=== PATIENT | female | born 1975 | race Caucasian/White ===

== ENCOUNTER 2023-01-22 17:12 | Emergency (ER) | payer MEDICARE, MEDICAID, SELFPAY ==
--- NOTE | ~2023-01-22 | US_ITS ---
EXAMINATION: ULTRASOUND FOLLOW-UP OVARIAN DOPPLER CLINICAL INDICATION: Right lower quadrant pain COMPARISON: None TECHNIQUE: Sonographic evaluation of the pelvis was performed transabdominally and transvaginally.: Doppler and spectral analysis was utilized. FINDINGS: Per technologist report, performance of the exam is limited due to body habitus and bowel gas. Transvaginal exam was terminated prior to completion as per patient request. The uterus measures 7.9 cm in length and 4.6 x 5.9 cm in AP and transverse dimensions. Endometrial stripe measures 1.3 cm in thickness. Questionable few small endometrial cysts versus polyps, not adequately evaluated. The right ovary is not visualized on transabdominal or transvaginal imaging. The left ovary is seen on transabdominal imaging, measuring 3.6 x 2.4 x 2.2 cm. Cystic structure in the left ovary measures up to 1.6 cm, which may represent a follicle. Doppler evaluation demonstrates normal-appearing waveforms in the left ovary. No free fluid is seen. US/US pelvic and transvaginal IMPRESSION: 1. Limited examination as noted above. Right ovary is not visualized on transabdominal or transvaginal imaging. 2. No findings to suggest left ovarian torsion. 3. Questionable few small endometrial cysts versus polyps, not adequately evaluated.
--- NOTE | ~2023-01-22 | CT_ITS ---
EXAMINATION: CT ABDOMEN AND PELVIS WITHOUT CONTRAST CLINICAL INFORMATION: Right-sided abdominal pain. COMPARISON: None available. TECHNIQUE: Multidetector volumetric imaging was performed from the superior aspect of the liver through the pubic symphysis. Sagittal and coronal reformatted images were obtained on the technologist's workstation. This CT examination was performed using dose optimization techniques as appropriate, variously including the following: *Automated exposure control *Adjustment of mA and/or kV according to patient size (this includes techniques or standardized protocols for targeted exams where dose is matched to indication/reason for exam; i.e. extremities or head) *Use of iterative reconstruction technique DLP: 869 mGy-cm FINDINGS: The lack of intravenous contrast limits evaluation of the solid visceral organs including the liver, spleen, pancreas, and kidneys. LUNG BASES: No focal consolidation or pleural effusion. LIVER, GALLBLADDER, AND BILIARY TREE: The liver is normal in size, shape, and attenuation. No focal hepatic lesion or biliary ductal dilatation is present. The gallbladder is unremarkable with no evidence of radiopaque gallstones, gallbladder wall thickening, or obvious pericholecystic inflammatory changes. PANCREAS: Unremarkable. SPLEEN: Unremarkable. ADRENAL GLANDS: Unremarkable. KIDNEYS AND URETERS: The kidneys are normal in size, shape, and attenuation. No hydronephrosis, hydroureter, or calculi seen. No perinephric stranding. BLADDER: Unremarkable. GASTROINTESTINAL TRACT: The stomach and the small bowel are nondilated. The appendix is mildly dilated measuring 0.8 cm in diameter but with no significant associated inflammatory changes. Mild diverticulosis. No pericolonic inflammatory changes. No evidence of bowel obstruction. ABDOMINAL WALL: No significant hernia is appreciated. LYMPH NODES: Nonspecific prominent right-sided pelvic sidewall lymph node measuring 1 cm in short axis (3:76) but with a benign reniform morphology, possibly reactive. This could be safely follow-up in future examinations. VASCULAR: Abdominal aorta is normal in caliber. PELVIC VISCERA: No significant abnormality in this limited noncontrast examination. OSSEOUS STRUCTURES: Nonaggressive appearing sclerotic focus in the L5 vertebral body, favored to represent a bone island. Mild degenerative changes of the spine. CT/CT abdomen pelvis wo IV con IMPRESSION: 1. The appendix is mildly dilated but with no significant associated inflammatory changes, findings could indicate the presence of very early mild appendicitis in the appropriate clinical context. 2. Mild diverticulosis but no evidence of acute diverticulitis.
--- NOTE | ~2023-01-22 | US_ITS ---
EXAMINATION: ULTRASOUND FOLLOW-UP OVARIAN DOPPLER CLINICAL INDICATION: Right lower quadrant pain COMPARISON: None TECHNIQUE: Sonographic evaluation of the pelvis was performed transabdominally and transvaginally.: Doppler and spectral analysis was utilized. FINDINGS: Per technologist report, performance of the exam is limited due to body habitus and bowel gas. Transvaginal exam was terminated prior to completion as per patient request. The uterus measures 7.9 cm in length and 4.6 x 5.9 cm in AP and transverse dimensions. Endometrial stripe measures 1.3 cm in thickness. Questionable few small endometrial cysts versus polyps, not adequately evaluated. The right ovary is not visualized on transabdominal or transvaginal imaging. The left ovary is seen on transabdominal imaging, measuring 3.6 x 2.4 x 2.2 cm. Cystic structure in the left ovary measures up to 1.6 cm, which may represent a follicle. Doppler evaluation demonstrates normal-appearing waveforms in the left ovary. No free fluid is seen. US/US pelvic ovarian doppler IMPRESSION: 1. Limited examination as noted above. Right ovary is not visualized on transabdominal or transvaginal imaging. 2. No findings to suggest left ovarian torsion. 3. Questionable few small endometrial cysts versus polyps, not adequately evaluated.
[2023-01-22 17:18] VITALS: BP 114/68; PULSE 87; RESP 20; TEMP 35.8; O2SAT 94; BMI 34.9
--- NOTE | 2023-01-22 17:19 | ED_ITS ---
HPI - Abdominal Pain General Chief Complaint: Abdominal Pain <SNEHA Henao Last Filed: 01/23/23 08:58> Stated Complaint: R side abdominal pain <SNEHA Henao Last Filed: 01/23/23 08:58> Time Seen by Provider: 01/22/23 17:43 <SNEHA Henao Last Filed: 01/23/23 08:58> Source: patient <SNEHA Nolasco Last Filed: 01/23/23 01:30> Mode of arrival: ambulatory <SNEHA Nolasco Last Filed: 01/23/23 01:30> Limitations: no limitations <SNEHA Nolasco Last Filed: 01/23/23 01:30> History of Present Illness HPI narrative: 47 year old female with PMH of multiple sclerosis and fibromyalgia presents to the ED with consistent, sharp, stabbing RLQ pain, anorexia now X1hour. Patient reports the pain does not radiate and is an 8/10. She has never experienced anything like this before. She last ate at 2 PM and had an japanese muffin. Normal bowel and bladder movements. She has not taken anything for the pain. Denies N/V/D, fever, chills, fatigue, malaise, urinary symptoms, saddle paresthesias, or lightheadedness. Patient denies any other medical concerns. <SNEHA Nolasco Last Filed: 01/23/23 01:30> Related Data Home Medications: Previous Rx's Medication Instructions Recorded cefuroxime axetil 250 mg tablet 250 mg PO BID 7 days #14 tabs 01/23/23 <SNEHA Henao Last Filed: 01/23/23 08:58> Allergies/Adverse Reactions: Allergies Allergy/AdvReac Type Severity Reaction Status Date / Time clonazepam Allergy Rash Verified 01/23/23 02:42 naproxen Allergy Palpitation Verified 01/23/23 02:42 s <SNEHA Henao Last Filed: 01/23/23 08:58> Review of Systems Review of Systems Constitutional : No Weight loss, No Fever, No Chills, No Fatigue, No Malaise Cardiovascular : No Chest Pain, No SOB, No Dyspnea on Exertion, No Orthopnea, No Edema, No Palpitations Respiratory : No Cough, No Sputum, No Wheezing Gastrointestinal : No Nausea, No Vomiting, No Diarrhea, No Constipation, + abdominal Pain, No Hematochezia, No Melena Genitourinary : No Dysuria, No Urinary Frequency, No Hematuria, Musculoskeletal : No joint pain, No Myalgias, No Joint Swelling Skin : No Skin Lesions, No rash Neuro : No Weakness, No Numbness, No Dizziness, No Headache Psych : No Anxiety/Panic, No Depression Heme/Lymph: No Bruising, No Bleeding,No Lymphadenopathy Endocrine : No Polyuria, No Polydipsia All other systems reviewed and are negative <SNEHA Nolasco - Last Filed: 01/23/23 01:30> [facility] Past Medical History Attestation statement: The following information was validated with the patient. <SNEHA Nolasco - Last Filed: 01/23/23 01:30> Source: old records reviewed and obtained from family <SNEHA Nolasco Last Filed: 01/23/23 01:30> Social History Social History: Social History Alcohol intake: never Smoked in Last 30 Days: Yes Use of substances other than those prescribed or required for medical reasons: Yes Substance Use Type: Marijuana Advance Directives: Yes Advance Directives Information Provided: No Advance Directives on File: No Patient : No <SNEHA Henao - Last Filed: 01/23/23 08:58> Physical Exam ED Vital Signs: Vital Signs - 24 hr 01/22/23 17:18 01/22/23 19:55 01/22/23 23:19 Temperature 96.5 F L 98.1 F 98.1 F Pulse Rate 87 77 70 Respiratory Rate 20 16 18 Blood Pressure 114/68 124/73 103/61 Pulse Oximetry 94 99 93 Oxygen Delivery Method Room Air Room Air Room Air 01/23/23 00:04 01/23/23 00:07 01/23/23 03:15 Temperature 98.0 F Pulse Rate 75 70 62 Respiratory Rate 18 17 16 Blood Pressure 110/62 101/66 127/71 Pulse Oximetry 94 93 95 Oxygen Delivery Method Room Air Room Air Room Air 01/23/23 05:38 01/23/23 05:49 Temperature 97.0 F Pulse Rate 71 Respiratory Rate 18 16 Blood Pressure 131/72 Pulse Oximetry 98 Oxygen Delivery Method Room Air BMI result Body Mass Index 34.9 <SNEHA Henao - Last Filed: 01/23/23 08:58> Vital Signs - 24 hr 01/22/23 17:18 01/22/23 19:55 01/22/23 23:19 Temperature 96.5 F L 98.1 F 98.1 F Pulse Rate 87 77 70 Respiratory Rate 20 16 18 Blood Pressure 114/68 124/73 103/61 Pulse Oximetry 94 99 93 Oxygen Delivery Method Room Air Room Air Room Air 01/23/23 00:04 01/23/23 00:07 01/23/23 03:15 Temperature 98.0 F Pulse Rate 75 70 62 Respiratory Rate 18 17 16 Blood Pressure 110/62 101/66 127/71 Pulse Oximetry 94 93 95 Oxygen Delivery Method Room Air Room Air Room Air 01/23/23 05:38 01/23/23 05:49 Temperature 97.0 F Pulse Rate 71 Respiratory Rate 18 16 Blood Pressure 131/72 Pulse Oximetry 98 Oxygen Delivery Method Room Air BMI result Body Mass Index 34.9 VSS <SNEHA Nolasco - Last Filed: 01/23/23 01:30> Vital Signs - 24 hr 01/22/23 17:18 01/22/23 19:55 01/22/23 23:19 Temperature 96.5 F L 98.1 F 98.1 F Pulse Rate 87 77 70 Respiratory Rate 20 16 18 Blood Pressure 114/68 124/73 103/61 Pulse Oximetry 94 99 93 Oxygen Delivery Method Room Air Room Air Room Air 01/23/23 00:04 01/23/23 00:07 01/23/23 03:15 Temperature 98.0 F Pulse Rate 75 70 62 Respiratory Rate 18 17 16 Blood Pressure 110/62 101/66 127/71 Pulse Oximetry 94 93 95 Oxygen Delivery Method Room Air Room Air Room Air 01/23/23 05:38 01/23/23 05:49 Temperature 97.0 F Pulse Rate 71 Respiratory Rate 18 16 Blood Pressure 131/72 Pulse Oximetry 98 Oxygen Delivery Method Room Air BMI result Body Mass Index 34.9 <Robert Godinez MD - Last Filed: 01/23/23 05:08> Appearance: Alert.? Oriented X3.? No acute distress.? Head: Normocephalic, atraumatic, no step-offs or deformities Eyes: Pupils equal, round and reactive to light.? Neck: Normal inspection.? Neck supple.? CVS: Normal heart rate and rhythm.? Pulses normal.? Respiratory: No respiratory distress.? Breath sounds normal.? Abdomen: Soft, no abdominal wall rigidity, NBSX4 quadrants, tender to palpation, rebound and guarding of epigrastic region, RUQ and RLQ, - Currie's sign, - Rovsing, + McBurney Skin: Skin warm and dry.? Normal skin color.? Normal skin turgor.? Extremities: No lower extremity edema.? No calf ttp. 5/5 strength to bilateral upper and lower extremities Back: No midline tenderness, no C-spine tenderness, full range of motion, + CVA tenderness on the right Neuro: Oriented X 3.? No motor deficit.? No sensory deficit. CN 2-12 intact <SNEHA Nolasco Last Filed: 01/23/23 01:30> Course Course Course Narrative: RME - 47 yo female presents to the ER for evaluation of 30 minutes of acute onset of 8/10 RLQ stabbing abdominal pain. No N/V/D, fever, or urinary symptoms. Plan: lab workup. may need CT scan abd/pelvis but will need to be with contrast. defer to main provider in the ER <SNEHA Henao Last Filed: 01/23/23 08:58> Reevaluation(s) Reevaluation #1: Patient was a very difficult stick multiple nurses tried to obtain access however unsuccessful. At this time CT of the abdomen pelvis without contrast will be obtained. Labs showing elevated white blood cell count 11.3, chemistry essentially unremarkable hCG negative. CT of the abdomen pelvis with the appendix mildly dilated without significant associated inflammatory changes, this could be an early appendicitis, pain did just start an hour prior to arrival, I did re-evaluate patient she continues to have exquisite tenderness to the right lower quadrant. There is concern for appendicitis on this patient. Will discuss this case with surgery. Patient aware. <SNEHA Nolasco Last Filed: 01/23/23 01:30> Time: 22:43 <SNEHA Nolasco Last Filed: 01/23/23 01:30> Reevaluation #2: Discussed this case with surgery who states low suspicion for appendicitis however patient to be kept overnight and evaluated by them in the morning. Patient is noted to have a UTI she was covered with Zosyn empirically which will also cover for UTI. Patient continues to have pain. Ultrasound was called in for ovarian Doppler study. <SNEHA Nolasco - Last Filed: 01/23/23 01:30> Time: 00:22 <SNEHA Nolasco - Last Filed: 01/23/23 01:30> Reevaluation #3: Sign out to Dr. Godinez. Pending US of pelvis w/ doppler and surgical consult in AM <SNEHA Nolasco - Last Filed: 01/23/23 01:30> Time: 01:24 <SNEHA Nolasco - Last Filed: 01/23/23 01:30> Additional Reevaluation(s): Start physician observation: Radiology reading for pelvic top ultrasound is as follows: US pelvic ovarian doppler IMPRESSION: 1. Limited examination as noted above. Right ovary is not visualized on transabdominal or transvaginal imaging. 2. No findings to suggest left ovarian torsion. 3. Questionable few small endometrial cysts versus polyps, not adequately evaluated. Dictated By:Thuan Cortez MD The patient was given a dose of Zofran for nausea with improvement but she states that her pain is coming back. On examination she does have right lower quadrant tenderness which is moderate. I did order morphine 4 mg IV. The patient will be kept in the emergency department until she is re-evaluated by the surgeon. <Robert Godinez MD - Last Filed: 01/23/23 05:08> Consultations Consultation #1: Dr. Foley came and evaluated the patient in the emergency department. Pain is improved. Clinically unlikely have acute appendicitis at this time. Recommendations are to be discharged with antibiotics for positive UA, follow-up as needed with surgery in the office. Patient has been given a dose of IV Rocephin this morning for positive urinalysis. She will be discharged home on oral Ceftin. She was given strict return precautions to come back to the ER if severe pain were to recur. Stable for discharge home. Patient agrees with plan all questions were answered. <SNEHA Henao - Last Filed: 01/23/23 08:58> Time: 08:57 <SNEHA Henao - Last Filed: 01/23/23 08:58> 05:01 <Robert Godinez MD - Last Filed: 01/23/23 05:08> Medical Decision Making Medical Decision Making MDM Narrative: 47 year old female presents with sharp, stabbing, constant RLQ abdominal pain for 1 hour. PE: Abdomen: Soft, no abdominal wall rigidity, NBSX4 quadrants, tender to palpation, rebound and guarding of epigrastic region, RUQ and RLQ, + McBurney Plan: CT abdomen and pelvis with contrast Ddx: Appendicitis, cholecystitis, urolithiasis, UTI, cystitis, pancreatitis. Less likely cholangitis, acute abdomen. Less likely torsion or ectopic <SNEHA Nolasco - Last Filed: 01/23/23 01:30> Differential Diagnosis Differential Diagnoses: The differential diagnosis associated with the presentation includes <SNEHA Nolasco - Last Filed: 01/23/23 01:30> Ddx: Appendicitis, cholecystitis, urolithiasis, UTI, cystitis, pancreatitis. Less likely cholangitis, acute abdomen. Less likely torsion or ectopic <SNEHA Nolasco - Last Filed: 01/23/23 01:30> Admission/Observation Consideration of admission/observation: Escalation of care including admission/observation considered <SNEHA Nolasco - Last Filed: 01/23/23 01:30> possible surgical admit <SNEHA Nolasco - Last Filed: 01/23/23 01:30> Consult Healthcare Provider Management of the patient was discussed with: Hospitalist and Measurement And Sensing Technician (surgery ) <SNEHA Nolasco - Last Filed: 01/23/23 01:30> Lab Data [facility] Lab Attestation statement: I reviewed the patient's lab results. <SNEHA Nolasco - Last Filed: 01/23/23 01:30> Result Diagrams: 01/22/23 17:39 01/22/23 17:39 <SNEAH Henao - Last Filed: 05/06/23 08:58> Labs: Lab Results 01/22/23 01/22/23 01/22/23 Range/Units 17:39 17:39 23:27 WBC 11.3 H (4.8-10.8) X10*3/uL RBC 4.97 (4.20-5.50) X10*6/uL Hgb 13.4 (12.0-16.0) g/dl Hct 42.1 (37.0-47.0) % MCV 84.7 (80.0-98.0) fL MCH 27.0 (27.0-33.0) pg MCHC 31.8 (31.0-35.0) g/dl RDW 15.0 (11.0-16.0) % Plt Count 176 (160-400) X10*3/uL MPV 9.6 (9.4-12.3) fL Immature Gran % (Auto) 0.4 (0.0-0.4) % Neut % (Auto) 64.0 (45-73) % Lymph % (Auto) 26.3 (20-40) % [place] % (Auto) 7.0 (2-11) % Eos % (Auto) 1.9 (0-4) % Baso % (Auto) 0.4 (0-2) % Lymph # (Auto) 3.0 (1.2-4.9) X10*3/uL [place] # (Auto) 0.8 (0.1-1.2) X10*3/uL Eos # (Auto) 0.2 (0.0-0.4) X10*3/uL Baso # (Auto) 0.1 (0.0-0.2) X10*3/uL Abs Immat Gran (auto) 0.05 H (0.00-0.03) X10*3/uL Absolute Neuts (auto) 7.2 (2.0-8.3) x10*3/uL Absolute Nucleated RBC 0.000 (0.0-0.012) X10*3/uL Nucleated RBC % (auto) 0.0 (0.0-0.2) /100WBC Sodium 141 (135-145) mmol/L Potassium 3.9 (3.3-5.1) mmol/L Chloride 113 H (96-108) mmol/L Carbon Dioxide 22 (22-29) mmol/L Anion Gap 10 L (12-20) BUN 13 (9-16) mg/dL Creatinine 0.89 (0.5-1.4) mg/dL Estim Creat Clear Calc 94.4 Estimated GFR > 60 Random Glucose 157 H (60-115) mg/dL Lactic Acid 0.5 (0.5-2.0) mmol/L Calcium 9.4 (8.4-10.2) mg/dL Magnesium 2.2 (1.6-2.6) mg/dL Total Bilirubin 0.2 (0.0-1.0) mg/dL Direct Bilirubin 0.1 (0.0-0.5) mg/dL AST 14 (5-31) U/L ALT 16 (0-31) U/L Alkaline Phosphatase 80 (39-117) U/L Total Protein 7.2 (6.5-8.0) g/dL Albumin 4.3 (3.5-5.0) g/dL Lipase 31 (8-78) U/L Beta HCG, Quant < 2 mIU/mL Urine Color Urine Appearance Urine pH (5.0-9.0) Ur Specific Holden (1.005-1.025) Urine Protein (Neg-Trace) mg/dL Urine Glucose (UA) (Negative) mg/dL Urine Ketones (Negative) mg/dL Urine Blood (Negative) Urine Nitrite (Negative) Ur Leukocyte Esterase (Negative) Urine RBC (0-2) /HPF Urine WBC (0-5) /HPF Ur Squamous Epith Cells (0-2) /HPF Urine Bacteria (None Seen) Hyaline Casts (0-2) /LPF 01/22/23 01/23/23 Range/Units 23:27 06:48 WBC 10.4 (4.8-10.8) X10*3/uL RBC 5.03 (4.20-5.50) X10*6/uL Hgb 13.5 (12.0-16.0) g/dl Hct 43.0 (37.0-47.0) % MCV 85.5 (80.0-98.0) fL MCH 26.8 L (27.0-33.0) pg MCHC 31.4 (31.0-35.0) g/dl RDW 15.2 (11.0-16.0) % Plt Count 160 (160-400) X10*3/uL MPV 9.3 L (9.4-12.3) fL Immature Gran % (Auto) 0.5 H (0.0-0.4) % Neut % (Auto) 61.3 (45-73) % Lymph % (Auto) 26.2 (20-40) % [place] % (Auto) 9.5 (2-11) % Eos % (Auto) 2.1 (0-4) % Baso % (Auto) 0.4 (0-2) % Lymph # (Auto) 2.7 (1.2-4.9) X10*3/uL [place] # (Auto) 1.0 (0.1-1.2) X10*3/uL Eos # (Auto) 0.2 (0.0-0.4) X10*3/uL Baso # (Auto) 0.0 (0.0-0.2) X10*3/uL Abs Immat Gran (auto) 0.05 H (0.00-0.03) X10*3/uL Absolute Neuts (auto) 6.4 (2.0-8.3) x10*3/uL Absolute Nucleated RBC 0.000 (0.0-0.012) X10*3/uL Nucleated RBC % (auto) 0.0 (0.0-0.2) /100WBC Sodium (135-145) mmol/L Potassium (3.3-5.1) mmol/L Chloride (96-108) mmol/L Carbon Dioxide (22-29) mmol/L Anion Gap (12-20) BUN (9-16) mg/dL Creatinine (0.5-1.4) mg/dL Estim Creat Clear Calc Estimated GFR Random Glucose (60-115) mg/dL Lactic Acid (0.5-2.0) mmol/L Calcium (8.4-10.2) mg/dL Magnesium (1.6-2.6) mg/dL Total Bilirubin (0.0-1.0) mg/dL Direct Bilirubin (0.0-0.5) mg/dL AST (5-31) U/L ALT (0-31) U/L Alkaline Phosphatase (39-117) U/L Total Protein (6.5-8.0) g/dL Albumin (3.5-5.0) g/dL Lipase (8-78) U/L Beta HCG, Quant mIU/mL Urine Color Yellow Urine Appearance Clear Urine pH 5.5 (5.0-9.0) Ur Specific Holden 1.010 (1.005-1.025) Urine Protein Negative (Neg-Trace) mg/dL Urine Glucose (UA) Negative (Negative) mg/dL Urine Ketones Negative (Negative) mg/dL Urine Blood Negative (Negative) Urine Nitrite Positive H (Negative) Ur Leukocyte Esterase Small (1+) H (Negative) Urine RBC 0-2 (0-2) /HPF Urine WBC 11-20 H (0-5) /HPF Ur Squamous Epith Cells 3-5 (0-2) /HPF Urine Bacteria 4+ (None Seen) Hyaline Casts 3-5 (0-2) /LPF <SNEHA Henao - Last Filed: 01/23/23 08:58> Lab Results 01/22/23 01/22/23 01/22/23 Range/Units 17:39 17:39 23:27 WBC 11.3 H (4.8-10.8) X10*3/uL RBC 4.97 (4.20-5.50) X10*6/uL Hgb 13.4 (12.0-16.0) g/dl Hct 42.1 (37.0-47.0) % MCV 84.7 (80.0-98.0) fL MCH 27.0 (27.0-33.0) pg MCHC 31.8 (31.0-35.0) g/dl RDW 15.0 (11.0-16.0) % Plt Count 176 (160-400) X10*3/uL MPV 9.6 (9.4-12.3) fL Immature Gran % (Auto) 0.4 (0.0-0.4) % Neut % (Auto) 64.0 (45-73) % Lymph % (Auto) 26.3 (20-40) % [place]ug[place] % (Auto) 7.0 (2-11) % Eos % (Auto) 1.9 (0-4) % Baso % (Auto) 0.4 (0-2) % Lymph # (Auto) 3.0 (1.2-4.9) X10*3/uL [place] # (Auto) 0.8 (0.1-1.2) X10*3/uL Eos # (Auto) 0.2 (0.0-0.4) X10*3/uL Baso # (Auto) 0.1 (0.0-0.2) X10*3/uL Abs Immat Gran (auto) 0.05 H (0.00-0.03) X10*3/uL Absolute Neuts (auto) 7.2 (2.0-8.3) x10*3/uL Absolute Nucleated RBC 0.000 (0.0-0.012) X10*3/uL Nucleated RBC % (auto) 0.0 (0.0-0.2) /100WBC Sodium 141 (135-145) mmol/L Potassium 3.9 (3.3-5.1) mmol/L Chloride 113 H (96-108) mmol/L Carbon Dioxide 22 (22-29) mmol/L Anion Gap 10 L (12-20) BUN 13 (9-16) mg/dL Creatinine 0.89 (0.5-1.4) mg/dL Estim Creat Clear Calc 94.4 Estimated GFR > 60 Random Glucose 157 H (60-115) mg/dL Lactic Acid 0.5 (0.5-2.0) mmol/L Calcium 9.4 (8.4-10.2) mg/dL Magnesium 2.2 (1.6-2.6) mg/dL Total Bilirubin 0.2 (0.0-1.0) mg/dL Direct Bilirubin 0.1 (0.0-0.5) mg/dL AST 14 (5-31) U/L ALT 16 (0-31) U/L Alkaline Phosphatase 80 (39-117) U/L Total Protein 7.2 (6.5-8.0) g/dL Albumin 4.3 (3.5-5.0) g/dL Lipase 31 (8-78) U/L Beta HCG, Quant < 2 mIU/mL Urine Color Urine Appearance Urine pH (5.0-9.0) Ur Specific Holden (1.005-1.025) Urine Protein (Neg-Trace) mg/dL Urine Glucose (UA) (Negative) mg/dL Urine Ketones (Negative) mg/dL Urine Blood (Negative) Urine Nitrite (Negative) Ur Leukocyte Esterase (Negative) Urine RBC (0-2) /HPF Urine WBC (0-5) /HPF Ur Squamous Epith Cells (0-2) /HPF Urine Bacteria (None Seen) Hyaline Casts (0-2) /LPF 01/22/23 01/23/23 Range/Units 23:27 06:48 WBC 10.4 (4.8-10.8) X10*3/uL RBC 5.03 (4.20-5.50) X10*6/uL Hgb 13.5 (12.0-16.0) g/dl Hct 43.0 (37.0-47.0) % MCV 85.5 (80.0-98.0) fL MCH 26.8 L (27.0-33.0) pg MCHC 31.4 (31.0-35.0) g/dl RDW 15.2 (11.0-16.0) % Plt Count 160 (160-400) X10*3/uL MPV 9.3 L (9.4-12.3) fL Immature Gran % (Auto) 0.5 H (0.0-0.4) % Neut % (Auto) 61.3 (45-73) % Lymph % (Auto) 26.2 (20-40) % [place] % (Auto) 9.5 (2-11) % Eos % (Auto) 2.1 (0-4) % Baso % (Auto) 0.4 (0-2) % Lymph # (Auto) 2.7 (1.2-4.9) X10*3/uL [place] # (Auto) 1.0 (0.1-1.2) X10*3/uL Eos # (Auto) 0.2 (0.0-0.4) X10*3/uL Baso # (Auto) 0.0 (0.0-0.2) X10*3/uL Abs Immat Gran (auto) 0.05 H (0.00-0.03) X10*3/uL Absolute Neuts (auto) 6.4 (2.0-8.3) x10*3/uL Absolute Nucleated RBC 0.000 (0.0-0.012) X10*3/uL Nucleated RBC % (auto) 0.0 (0.0-0.2) /100WBC Sodium (135-145) mmol/L Potassium (3.3-5.1) mmol/L Chloride (96-108) mmol/L Carbon Dioxide (22-29) mmol/L Anion Gap (12-20) BUN (9-16) mg/dL Creatinine (0.5-1.4) mg/dL Estim Creat Clear Calc Estimated GFR Random Glucose (60-115) mg/dL Lactic Acid (0.5-2.0) mmol/L Calcium (8.4-10.2) mg/dL Magnesium (1.6-2.6) mg/dL Total Bilirubin (0.0-1.0) mg/dL Direct Bilirubin (0.0-0.5) mg/dL AST (5-31) U/L ALT (0-31) U/L Alkaline Phosphatase (39-117) U/L Total Protein (6.5-8.0) g/dL Albumin (3.5-5.0) g/dL Lipase (8-78) U/L Beta HCG, Quant mIU/mL Urine Color Yellow Urine Appearance Clear Urine pH 5.5 (5.0-9.0) Ur Specific Holden 1.010 (1.005-1.025) Urine Protein Negative (Neg-Trace) mg/dL Urine Glucose (UA) Negative (Negative) mg/dL Urine Ketones Negative (Negative) mg/dL Urine Blood Negative (Negative) Urine Nitrite Positive H (Negative) Ur Leukocyte Esterase Small (1+) H (Negative) Urine RBC 0-2 (0-2) /HPF Urine WBC 11-20 H (0-5) /HPF Ur Squamous Epith Cells 3-5 (0-2) /HPF Urine Bacteria 4+ (None Seen) Hyaline Casts 3-5 (0-2) /LPF <SNEHA Nolasco - Last Filed: 01/23/23 01:30> Lab Results 01/22/23 01/22/23 01/22/23 Range/Units 17:39 17:39 23:27 WBC 11.3 H (4.8-10.8) X10*3/uL RBC 4.97 (4.20-5.50) X10*6/uL Hgb 13.4 (12.0-16.0) g/dl Hct 42.1 (37.0-47.0) % MCV 84.7 (80.0-98.0) fL MCH 27.0 (27.0-33.0) pg MCHC 31.8 (31.0-35.0) g/dl RDW 15.0 (11.0-16.0) % Plt Count 176 (160-400) X10*3/uL MPV 9.6 (9.4-12.3) fL Immature Gran % (Auto) 0.4 (0.0-0.4) % Neut % (Auto) 64.0 (45-73) % Lymph % (Auto) 26.3 (20-40) % [place] % (Auto) 7.0 (2-11) % Eos % (Auto) 1.9 (0-4) % Baso % (Auto) 0.4 (0-2) % Lymph # (Auto) 3.0 (1.2-4.9) X10*3/uL [place] # (Auto) 0.8 (0.1-1.2) X10*3/uL Eos # (Auto) 0.2 (0.0-0.4) X10*3/uL Baso # (Auto) 0.1 (0.0-0.2) X10*3/uL Abs Immat Gran (auto) 0.05 H (0.00-0.03) X10*3/uL Absolute Neuts (auto) 7.2 (2.0-8.3) x10*3/uL Absolute Nucleated RBC 0.000 (0.0-0.012) X10*3/uL Nucleated RBC % (auto) 0.0 (0.0-0.2) /100WBC Sodium 141 (135-145) mmol/L Potassium 3.9 (3.3-5.1) mmol/L Chloride 113 H (96-108) mmol/L Carbon Dioxide 22 (22-29) mmol/L Anion Gap 10 L (12-20) BUN 13 (9-16) mg/dL Creatinine 0.89 (0.5-1.4) mg/dL Estim Creat Clear Calc 94.4 Estimated GFR > 60 Random Glucose 157 H (60-115) mg/dL Lactic Acid 0.5 (0.5-2.0) mmol/L Calcium 9.4 (8.4-10.2) mg/dL Magnesium 2.2 (1.6-2.6) mg/dL Total Bilirubin 0.2 (0.0-1.0) mg/dL Direct Bilirubin 0.1 (0.0-0.5) mg/dL AST 14 (5-31) U/L ALT 16 (0-31) U/L Alkaline Phosphatase 80 (39-117) U/L Total Protein 7.2 (6.5-8.0) g/dL Albumin 4.3 (3.5-5.0) g/dL Lipase 31 (8-78) U/L Beta HCG, Quant < 2 mIU/mL Urine Color Urine Appearance Urine pH (5.0-9.0) Ur Specific [place] (1.005-1.025) Urine Protein (Neg-Trace) mg/dL Urine Glucose (UA) (Negative) mg/dL Urine Ketones (Negative) mg/dL Urine Blood (Negative) Urine Nitrite (Negative) Ur Leukocyte Esterase (Negative) Urine RBC (0-2) /HPF Urine WBC (0-5) /HPF Ur Squamous Epith Cells (0-2) /HPF Urine Bacteria (None Seen) Hyaline Casts (0-2) /LPF 01/22/23 01/23/23 Range/Units 23:27 06:48 WBC 10.4 (4.8-10.8) X10*3/uL RBC 5.03 (4.20-5.50) X10*6/uL Hgb 13.5 (12.0-16.0) g/dl Hct 43.0 (37.0-47.0) % MCV 85.5 (80.0-98.0) fL MCH 26.8 L (27.0-33.0) pg MCHC 31.4 (31.0-35.0) g/dl RDW 15.2 (11.0-16.0) % Plt Count 160 (160-400) X10*3/uL MPV 9.3 L (9.4-12.3) fL Immature Gran % (Auto) 0.5 H (0.0-0.4) % Neut % (Auto) 61.3 (45-73) % Lymph % (Auto) 26.2 (20-40) % [place] % (Auto) 9.5 (2-11) % Eos % (Auto) 2.1 (0-4) % Baso % (Auto) 0.4 (0-2) % Lymph # (Auto) 2.7 (1.2-4.9) X10*3/uL [place] # (Auto) 1.0 (0.1-1.2) X10*3/uL Eos # (Auto) 0.2 (0.0-0.4) X10*3/uL Baso # (Auto) 0.0 (0.0-0.2) X10*3/uL Abs Immat Gran (auto) 0.05 H (0.00-0.03) X10*3/uL Absolute Neuts (auto) 6.4 (2.0-8.3) x10*3/uL Absolute Nucleated RBC 0.000 (0.0-0.012) X10*3/uL Nucleated RBC % (auto) 0.0 (0.0-0.2) /100WBC Sodium (135-145) mmol/L Potassium (3.3-5.1) mmol/L Chloride (96-108) mmol/L Carbon Dioxide (22-29) mmol/L Anion Gap (12-20) BUN (9-16) mg/dL Creatinine (0.5-1.4) mg/dL Estim Creat Clear Calc Estimated GFR Random Glucose (60-115) mg/dL Lactic Acid (0.5-2.0) mmol/L Calcium (8.4-10.2) mg/dL Magnesium (1.6-2.6) mg/dL Total Bilirubin (0.0-1.0) mg/dL Direct Bilirubin (0.0-0.5) mg/dL AST (5-31) U/L ALT (0-31) U/L Alkaline Phosphatase (39-117) U/L Total Protein (6.5-8.0) g/dL Albumin (3.5-5.0) g/dL Lipase (8-78) U/L Beta HCG, Quant mIU/mL Urine Color Yellow Urine Appearance Clear Urine pH 5.5 (5.0-9.0) Ur Specific [place] 1.010 (1.005-1.025) Urine Protein Negative (Neg-Trace) mg/dL Urine Glucose (UA) Negative (Negative) mg/dL Urine Ketones Negative (Negative) mg/dL Urine Blood Negative (Negative) Urine Nitrite Positive H (Negative) Ur Leukocyte Esterase Small (1+) H (Negative) Urine RBC 0-2 (0-2) /HPF Urine WBC 11-20 H (0-5) /HPF Ur Squamous Epith Cells 3-5 (0-2) /HPF Urine Bacteria 4+ (None Seen) Hyaline Casts 3-5 (0-2) /LPF <Robert Godinez MD - Last Filed: 01/23/23 05:08> Independent Interpretation I performed an independent interpretation of an: CT Scan (CT/CT abdomen pelvis wo IV con IMPRESSION: 1. The appendix is mildly dilated but with no significant associated inflammatory changes, findings could indicate the presence of very early mild appendicitis in the appropriate clinical context. 2. Mild diverticulosis but no evidence of acute diverticul) <SNEHA Nolasco - Last Filed: 01/23/23 01:30> Radiology Impression Discussion of test interpretation with radiology: I have reviewed the radiologist's reading. <SNEHA Nolasco - Last Filed: 01/23/23 01:30> Core Measures AMI core measures followed: Yes <SNEHA Nolasco - Last Filed: 01/23/23 01:30> Measure exclusions: not indicated <SNEHA Nolasco - Last Filed: 01/23/23 01:30> Medications Administered Discontinued Medications Generic Name Dose Route Start Last Admin Trade Name Freq PRN Reason Stop Dose Admin Piperacillin Sod/Tazobactam 50 mls @ 100 mls/hr 01/22/23 22:38 01/23/23 00:30 Sod 3.375 gm/ Sodium Chloride IV 01/22/23 23:07 Infused ONCE ONE Infusion Sodium Chloride 1,000 mls @ 999 mls/hr 01/22/23 22:45 01/23/23 01:30 Ns IV 01/22/23 23:45 Infused .Q1H1M CHAYO Infusion Ceftriaxone Sodium 1 gm/ 50 mls @ 100 mls/hr 01/23/23 07:55 01/23/23 08:04 Sodium Chloride IV 01/23/23 08:24 100 mls/hr ONCE ONE Administration Ketorolac Tromethamine 30 mg 01/22/23 18:46 01/22/23 20:50 Ketorolac Tromethamine 15 Mg/Ml Vial IM 01/22/23 18:47 30 mg ONCE ONE Administration Morphine Sulfate 4 mg 01/22/23 22:54 01/22/23 23:50 Morphine Sulfate 4 Mg/Ml Cartridge IVPUSH 01/22/23 22:55 4 mg ONCE ONE Administration Protocol Morphine Sulfate 4 mg 01/23/23 05:07 01/23/23 05:38 Morphine Sulfate 4 Mg/Ml Cartridge IVPUSH 01/23/23 05:08 4 mg ONCE STA Administration Protocol Ondansetron HCl 4 mg 01/23/23 02:34 01/23/23 02:39 Ondansetron Hcl 4 Mg/2 Ml Vial IVPUSH 01/23/23 02:35 4 mg ONCE ONE Administration <SNEHA Henao - Last Filed: 01/23/23 08:58> Medications Administered Discontinued Medications Generic Name Dose Route Start Last Admin Trade Name Freq PRN Reason Stop Dose Admin Piperacillin Sod/Tazobactam 50 mls @ 100 mls/hr 01/22/23 22:38 01/23/23 00:30 Sod 3.375 gm/ Sodium Chloride IV 01/22/23 23:07 Infused ONCE ONE Infusion Sodium Chloride 1,000 mls @ 999 mls/hr 01/22/23 22:45 01/23/23 01:30 Ns IV 01/22/23 23:45 Infused .Q1H1M CHAYO Infusion Ceftriaxone Sodium 1 gm/ 50 mls @ 100 mls/hr 01/23/23 07:55 01/23/23 08:04 Sodium Chloride IV 01/23/23 08:24 100 mls/hr ONCE ONE Administration Ketorolac Tromethamine 30 mg 01/22/23 18:46 01/22/23 20:50 Ketorolac Tromethamine 15 Mg/Ml Vial IM 01/22/23 18:47 30 mg ONCE ONE Administration Morphine Sulfate 4 mg 01/22/23 22:54 01/22/23 23:50 Morphine Sulfate 4 Mg/Ml Cartridge IVPUSH 01/22/23 22:55 4 mg ONCE ONE Administration Protocol Morphine Sulfate 4 mg 01/23/23 05:07 01/23/23 05:38 Morphine Sulfate 4 Mg/Ml Cartridge IVPUSH 01/23/23 05:08 4 mg ONCE STA Administration Protocol Ondansetron HCl 4 mg 01/23/23 02:34 01/23/23 02:39 Ondansetron Hcl 4 Mg/2 Ml Vial IVPUSH 01/23/23 02:35 4 mg ONCE ONE Administration <SNEHA Nolasco - Last Filed: 01/23/23 01:30> Medications Administered Discontinued Medications Generic Name Dose Route Start Last Admin Trade Name Freq PRN Reason Stop Dose Admin Piperacillin Sod/Tazobactam 50 mls @ 100 mls/hr 01/22/23 22:38 01/23/23 00:30 Sod 3.375 gm/ Sodium Chloride IV 01/22/23 23:07 Infused ONCE ONE Infusion Sodium Chloride 1,000 mls @ 999 mls/hr 01/22/23 22:45 01/23/23 01:30 Ns IV 01/22/23 23:45 Infused .Q1H1M CHAYO Infusion Ceftriaxone Sodium 1 gm/ 50 mls @ 100 mls/hr 01/23/23 07:55 01/23/23 08:04 Sodium Chloride IV 01/23/23 08:24 100 mls/hr ONCE ONE Administration Ketorolac Tromethamine 30 mg 01/22/23 18:46 01/22/23 20:50 Ketorolac Tromethamine 15 Mg/Ml Vial IM 01/22/23 18:47 30 mg ONCE ONE Administration Morphine Sulfate 4 mg 01/22/23 22:54 01/22/23 23:50 Morphine Sulfate 4 Mg/Ml Cartridge IVPUSH 01/22/23 22:55 4 mg ONCE ONE Administration Protocol Morphine Sulfate 4 mg 01/23/23 05:07 01/23/23 05:38 Morphine Sulfate 4 Mg/Ml Cartridge IVPUSH 01/23/23 05:08 4 mg ONCE STA Administration Protocol Ondansetron HCl 4 mg 01/23/23 02:34 01/23/23 02:39 Ondansetron Hcl 4 Mg/2 Ml Vial IVPUSH 01/23/23 02:35 4 mg ONCE ONE Administration <Robert Godinez MD - Last Filed: 01/23/23 05:08> Critical Care Time Critical Care Time Critical Care Time: Yes <SNEHA Nolasco Last Filed: 01/23/23 01:30> Total Critical Care Time: 40 <SNEHA Nolasco Last Filed: 01/23/23 01:30> Attestation: I attest to this time spent taking care of the patient, obtaining history, physical, reviewing labs, imaging, speaking to my attending, speaking to s pecialist. <SNEHA Nolasco Last Filed: 01/23/23 01:30> Discharge Plan Discharge Clinical Impression: Abdominal pain, UTI (urinary tract infection) <SNEHA Henao Last Filed: 01/23/23 08:58> Patient Disposition: Home, Self-Care <SNEHA Henao Last Filed: 01/23/23 08:58> Instructions: Urinary Tract Infection in Women (DC), Abdominal Pain (ED) <SNEHA Henao Last Filed: 01/23/23 08:58> Additional Instructions: Take your medications as prescribed. If you were prescribed antibiotics tomorrow morning, it is important that you take your medication to their entirety, do not skip any doses, do not finish them early. Follow-up with your primary care provider this week. Return to the emergency department with new or worsening symptoms. Such as fevers, chills, chest pain, shortness of breath, nausea, vomiting, dizziness, headache, vision changes, lethargy In case of emergency call 911 <SNEHA Henao Last Filed: 01/23/23 08:58> Prescriptions: New cefuroxime axetil 250 mg tablet 250 mg PO BID 7 Days Qty: 14 0RF <SNEHA Henao Last Filed: 01/23/23 08:58> Referrals: [facility] [place] [facility] [Provider Group] (RLQ pain, CT with ?early appendicitis, clinically unlikely. seen by Dr. Foley in the ER) Mary Grace Ordonez FNP [Primary Care Provider] - 2 days <SNEHA Henao Last Filed: 01/23/23 08:58>
[2023-01-22 17:44] LABS: MANUAL DIFF FLAG NO
[2023-01-22 17:50] LABS: Basophils Absolute Auto 0.1 X10*3/uL (0.0-0.2); Basophils Percent Auto 0.4 % (0-2); Eosinophils Absolute Auto 0.2 X10*3/uL (0.0-0.4); Eosinophils Percent Auto 1.9 % (0-4); Hematocrit 42.1 % (37.0-47.0); Hemoglobin 13.4 g/dl (12.0-16.0); Imm Gran Abs Auto 0.05 X10*3/uL (0.00-0.03); Imm Gran Pct Auto 0.4 % (0.0-0.4); Lymphocytes Percent Auto 26.3 % (20-40); Mean Corpuscular HGB Conc 31.8 g/dl (31.0-35.0); Mean Corpuscular Volume 84.7 fL (80.0-98.0); Mean Platelet Volume 9.6 fL (9.4-12.3); Monocytes Absolute Auto 0.8 X10*3/uL (0.1-1.2); Neutrophils Absolute Auto 7.2 x10*3/uL (2.0-8.3); Platelet Count 176 X10*3/uL (160-400); Red Blood Count 4.97 X10*6/uL (4.20-5.50); White Blood Count 11.3 X10*3/uL (4.8-10.8)
[2023-01-22 18:03] LABS: Alanine Aminotransferase 16 U/L (0-31); Albumin Level 4.3 g/dL (3.5-5.0); Alkaline Phosphatase 80 U/L (39-117); Anion Gap 10 (12-20); Aspartate Amino Transferase 14 U/L (5-31); Bilirubin Direct 0.1 mg/dL (0.0-0.5); Blood Urea Nitrogen 13 mg/dL (9-16); Calcium 9.4 mg/dL (8.4-10.2); Carbon Dioxide 22 mmol/L (22-29); Chloride 113 mmol/L (96-108); Creatinine Clr Calc Pharmacy 94.4; Estimated Glomerular Filt Rate > 60; Glucose Random 157 mg/dL (60-115); Magnesium 2.2 mg/dL (1.6-2.6); Potassium 3.9 mmol/L (3.3-5.1); Sodium 141 mmol/L (135-145); Total Protein 7.2 g/dL (6.5-8.0)
[2023-01-22 18:21] LABS: Bilirubin Total 0.2 mg/dL (0.0-1.0)
[2023-01-22 19:30] LABS: HCG Quantitative < 2 mIU/mL; Lipase 31 U/L (8-78)
[2023-01-22 19:55] VITALS: BP 124/73; PULSE 77; RESP 16; TEMP 36.7; O2SAT 99
--- NOTE | 2023-01-22 20:30 | PC.NURSE ---
UTO IV access. 5 attempts made by nursing. PA aware, plan for CT without IV contrast. Primary RN aware.
[2023-01-22] MEDS: Ketorolac Tromethamine 15 MG/ML VIAL 30 MG IM (20:50)
--- NOTE | 2023-01-22 22:44 | ECG_ITS ---
Test Reason : possible preop Blood Pressure : / mmHG Vent. Rate : 068 BPM Atrial Rate : 068 BPM P-R Int : 154 ms QRS Dur : 104 ms QT Int : 414 ms P-R-T Axes : 031 -02 048 degrees QTc Int : 440 ms Normal sinus rhythm Normal ECG No previous ECGs available Referred By: Frank Dillon Electronically Signed By:KUMAR LANE MD
--- NOTE | 2023-01-22 23:00 | PC.NURSE ---
This resume writer assumed care of this Pt at 2300.
[2023-01-22 23:19] VITALS: BP 103/61; PULSE 70; RESP 18; TEMP 36.7; O2SAT 93
[2023-01-22 23:36] LABS: Appearance Urine Clear; Color Urine Yellow; Glucose Urine UA Negative (Negative); Leukocyte Esterase Urine Small (1+) (Negative); Nitrite Urine Positive (Negative); PH 5.5 (5.0-9.0); UMIC TRIGGER UACC YES; Urine Blood Negative (Negative); Urine Ketones Negative (Negative); Urine Protein Negative (Neg-Trace)
[2023-01-22] MEDS: Piperacillin Sodium/Tazobactam 3.375 GM in 0.9 % Sodium Chloride 50 ML IV (23:39)
[2023-01-22 23:40] LABS: Bacteria Urine 4+ (None Seen); RBC Urine 0-2 /HPF (0-2); UACC Culture Trigger YES
[2023-01-22] MEDS: 0.9 % Sodium Chloride 1,000 ML 999 ML IV (23:44)
[2023-01-22 23:45] LABS: Lactic Acid 0.5 mmol/L (0.5-2.0)
[2023-01-22] MEDS: Morphine Sulfate 4 MG/ML CARTRIDGE IVPUSH (23:50)
[2023-01-23 00:04] VITALS: BP 110/62; PULSE 75; RESP 18; TEMP 36.7; O2SAT 94
[2023-01-23 00:07] VITALS: BP 101/66; PULSE 70; RESP 17; O2SAT 93
[2023-01-23] MEDS: ondansetron HCL 4 MG/2 ML VIAL IVPUSH (02:39)
[2023-01-23 03:15] VITALS: BP 127/71; PULSE 62; RESP 16; O2SAT 95
--- NOTE | 2023-01-23 04:54 | PC.NURSE ---
Pt A&Ox4, reports 5/10 consistent RLQ ABD pain, states it feels sharp and stabbing . Pt reports effectiveness of pain med given by previous RN. Pt tolerating ice chips.
[2023-01-23 05:38] VITALS: RESP 18
[2023-01-23] MEDS: Morphine Sulfate 4 MG/ML CARTRIDGE IVPUSH (05:38)
[2023-01-23 05:49] VITALS: BP 131/72; PULSE 71; RESP 16; TEMP 36.1; O2SAT 98
[2023-01-23 06:56] LABS: Basophils Percent Auto 0.4 % (0-2); Eosinophils Absolute Auto 0.2 X10*3/uL (0.0-0.4); Eosinophils Percent Auto 2.1 % (0-4); Hemoglobin 13.5 g/dl (12.0-16.0); Imm Gran Abs Auto 0.05 X10*3/uL (0.00-0.03); Imm Gran Pct Auto 0.5 % (0.0-0.4); Lymphocytes Absolute Auto 2.7 X10*3/uL (1.2-4.9); Lymphocytes Percent Auto 26.2 % (20-40); Mean Corpuscular HGB Conc 31.4 g/dl (31.0-35.0); Mean Corpuscular Hemoglobin 26.8 pg (27.0-33.0); Mean Corpuscular Volume 85.5 fL (80.0-98.0); Mean Platelet Volume 9.3 fL (9.4-12.3); Monocytes Percent Auto 9.5 % (2-11); Neutrophils Absolute Auto 6.4 x10*3/uL (2.0-8.3); Neutrophils Percent Auto 61.3 % (45-73); Platelet Count 160 X10*3/uL (160-400); Red Blood Count 5.03 X10*6/uL (4.20-5.50); Red Cell Distribution Width 15.2 % (11.0-16.0); White Blood Count 10.4 X10*3/uL (4.8-10.8)
--- NOTE | 2023-01-23 07:50 | PC.NURSE ---
NAD, NO PAIN, SKIN WPD, EATING ICE CHIPS, AWARE OF CARE PLAN
[2023-01-23 07:56] LABS: MANUAL DIFF FLAG NO
[2023-01-23] MEDS: cefTRIAXone sodium 1 GM in 0.9 % Sodium Chloride 50 ML IV (08:04)
--- NOTE | 2023-01-23 08:46 | PM.CNGS ---
History of Present Illness Consult details Consult date: 01/23/23 Requesting physician: Luiza Llanes Narrative: 47 year old female who came in last night due to worsening right sided abdo pain, sharp and in lower to mid right side. some nausea no voiting no fever no chills no diarrhea. never has had pain like this before. In ER w.u revealed little elevated wbc and ct scan showed mildly enlarged appendix with no inflammatory surrounding signs. Pt had tubal ligation and usually no issues with ovarian cysts. she is perimenopausal. right ovary not seen by u/s no other sick contacts. Review of Systems Review of Systems: Yes all other systems are reviewed and are negative [facility] Past Medical History Functional capacity: independent ambulation Social History Social History Alcohol intake: never Smoked in Last 30 Days: Yes Use of substances other than those prescribed or required for medical reasons: Yes Substance Use Type: Marijuana Advance Directives: Yes Advance Directives Information Provided: No Advance Directives on File: No Patient : No Meds Allergies Allergy/AdvReac Type Severity Reaction Status Date / Time clonazepam Allergy Rash Verified 01/23/23 02:42 naproxen Allergy Palpitation Verified 01/23/23 02:42 s Physical Exam Vital Signs: Vital Signs: Last Vital Signs Temp 97.0 F 01/23/23 05:49 Pulse 71 01/23/23 05:49 Resp 16 01/23/23 05:49 BP 131/72 01/23/23 05:49 Pulse Ox 98 01/23/23 05:49 O2 Del Method Room Air 01/23/23 05:49 BMI result Body Mass Index 34.9 Const: General: cooperative, comfortable and no acute distress Nutritional Appearance: obese Orientation/consciousness: patient oriented x3 HEENT: Head: Yes normal to inspection GI: Other: abdomen is obese, the left side soft nontender, theright side she is mildly tender in the right lower quadrant but no guarding or rebound or peritoneal signs. active bowel sounds Skin: Lesions: no lesions Neuro: General: patient oriented x3 Results Labs 01/23/23 06:48 01/22/23 17:39 Labs: Abnormal lab results 01/22/23 01/22/23 01/22/23 Range/Units 17:39 17:39 23:27 WBC 11.3 H (4.8-10.8) X10*3/uL MCH (27.0-33.0) pg MPV (9.4-12.3) fL Immature Gran % (Auto) (0.0-0.4) % Abs Immat Gran (auto) 0.05 H (0.00-0.03) X10*3/uL Chloride 113 H (96-108) mmol/L Anion Gap 10 L (12-20) Random Glucose 157 H (60-115) mg/dL Urine Nitrite Positive H (Negative) Ur Leukocyte Esterase Small (1+) H (Negative) Urine WBC 11-20 H (0-5) /HPF 01/23/23 Range/Units 06:48 WBC (4.8-10.8) X10*3/uL MCH 26.8 L (27.0-33.0) pg MPV 9.3 L (9.4-12.3) fL Immature Gran % (Auto) 0.5 H (0.0-0.4) % Abs Immat Gran (auto) 0.05 H (0.00-0.03) X10*3/uL Chloride (96-108) mmol/L Anion Gap (12-20) Random Glucose (60-115) mg/dL Urine Nitrite (Negative) Ur Leukocyte Esterase (Negative) Urine WBC (0-5) /HPF Short CBC 01/22/23 01/23/23 Range/Units 17:39 06:48 WBC 11.3 H 10.4 (4.8-10.8) X10*3/uL Hgb 13.4 13.5 (12.0-16.0) g/dl Hct 42.1 43.0 (37.0-47.0) % Plt Count 176 160 (160-400) X10*3/uL BMP 01/22/23 17:39 Sodium 141 Potassium 3.9 Chloride 113 H Carbon Dioxide 22 BUN 13 Creatinine 0.89 Calcium 9.4 Liver Function 01/22/23 Range/Units 17:39 Total Bilirubin 0.2 (0.0-1.0) mg/dL Direct Bilirubin 0.1 (0.0-0.5) mg/dL AST 14 (5-31) U/L ALT 16 (0-31) U/L Alkaline Phosphatase 80 (39-117) U/L Albumin 4.3 (3.5-5.0) g/dL Urine 01/22/23 Range/Units 23:27 Urine Color Yellow Urine Appearance Clear Urine pH 5.5 (5.0-9.0) Ur Specific [place] 1.010 (1.005-1.025) Urine Protein Negative (Neg-Trace) mg/dL Urine Glucose (UA) Negative (Negative) mg/dL All other labs normal. Imaging Abdomen CT scan report/results: report reviewed and image reviewed CT scan - pelvis: report reviewed and image reviewed Assessment and Plan (1) Abdominal pain: Status: Acute Plan 47 year old female with right sided abdo pain and slightly elevated wbc. -? etiology - pt has u/s c.w uti - the right side abdomen less tender and wbc improved this am. ? early appendicitis but dont really think this. agree with antibx at least for uti and can f.u with surgery prn as outpt. Definitely no surgical indication for now. pt understands and agrees with plan Time Spent With Patient Time: Total time managing care of this patient today ____ minutes. Procedures Date of Service Date of Service: 01/23/23
[2023-01-23 09:00] VITALS: BP 131/75; PULSE 71; RESP 16; O2SAT 98
== END 2023-01-23 09:03 | disposition home or self-care (01) ==
PROVIDERS: Physician Assistant; Emergency Provider Emergency Medicine Emergency Medical Services; PCP Nurse Practitioner Family
DX: N39.0 Urinary tract infection, site not specified (principal); R10.31 Right lower quadrant pain; R07.89 Other chest pain; Z79.899 Other long term (current) drug therapy
CPT/HCPCS: 36415; 74176; 76830; 76856; 80048; 80076; 81001; 83605; 83690; 83735; 84702; 85025; 87040; 87086; 87088; 87186; 93005; 93975; 96361; 96365; 96372; 96375; 96376; 99285; J0696; J1885; J2270; J2405; J2543

== ENCOUNTER 2023-07-18 10:59 | Emergency (ER) | payer MEDICARE, MEDICAID, SELFPAY ==
--- NOTE | ~2023-07-18 | XR_ITS ---
EXAMINATION: XR SHOULDER, LEFT CLINICAL INFORMATION: Pain COMPARISON: None available. TECHNIQUE: Three views of the left shoulder. FINDINGS: No acute visible fracture or dislocation. Joint spaces and alignment are maintained. Soft tissues are unremarkable. Visualized portions of the left chest are unremarkable. XR/XR shoulder LT min 2V IMPRESSION: No acute visible fracture or dislocation.
[2023-07-18 11:10] VITALS: BP 125/82; PULSE 92; RESP 19; TEMP 36.6; O2SAT 97; BMI 34.5
--- NOTE | 2023-07-18 12:32 | ED.EXTPRO ---
HPI - Extremity Problem General Chief complaint: Extremity Injury, Upper Stated complaint: l shoulder pain inj Time Seen by Provider: 07/18/23 17:21 Source: patient Mode of arrival: ambulatory Limitations: no limitations History of Present Illness HPI Narrative: 47 yold female with pmh of MS presents to the ED for left shoulder pain that is worse on movement for couple of days. patient started having left shoulder pain after heavy lifting of pumpkin couple of days ago. patient no chest pain, neck pain, or shortness of breath. Related Data Previous Rx's Medication Instructions Recorded cefuroxime axetil 250 mg tablet 250 mg PO BID 7 days #14 tabs 01/23/23 prednisone 20 mg tablet 40 mg (2 x 20 mg) PO DAILY 5 days 07/18/23 #10 tabs tramadol 50 mg tablet 50 mg PO Q6H PRN pain 3 days #12 07/18/23 tabs Allergies Allergy/AdvReac Type Severity Reaction Status Date / Time clonazepam Allergy Rash Verified 07/18/23 11:10 naproxen Allergy Palpitation Verified 07/18/23 11:10 s Review of Systems Review of Systems: Left shoulder pain Yes all other systems are reviewed and are negative [facility] Social History Social History Alcohol intake: never Substance Use Type: Marijuana Advance Directives: No Physical Exam Vital Signs: Vital Signs: Last Vital Signs Temp 98 F 07/18/23 11:10 Pulse 92 07/18/23 11:10 Resp 19 07/18/23 11:10 BP 125/82 07/18/23 11:10 Pulse Ox 97 07/18/23 11:10 O2 Del Method Room Air 07/18/23 11:10 BMI result Body Mass Index 34.5 Const: General: cooperative, healthy appearing, comfortable, no acute distress, well developed, alert, awake and Physically active Orientation/consciousness: oriented to person, oriented to place, oriented to time and patient oriented x3 HEENT: Head: Yes normal to inspection, Yes No palpable skull fracture present, Yes normocephalic and Yes atraumatic Eyes: General: appearance normal, both eyes and all related structures Neck: Neck: Yes normal visual inspection, Yes full ROM, Yes no lymphadenopathy, Yes no meningeal signs, Yes trachea midline, Yes supple, No anterior neck swelling and No tender Chest: Chest palpation & inspection: normal inspection of the chest and normal palpation of entire chest wall Resp: Effort & Inspection: normal respiratory effort and able to speak in complete sentences Auscultation: clear to auscultation bilaterally Cardio: Jugular venous distension: no JVD Heart sounds: S1 normal heart sound present and S2 normal heart sound present GI: Inspection: Yes normal to inspection and No abdominal wall ecchymosis Palpation (GI): Soft to palpation, not firm, nontender, no guarding and not rigid : General: Yes no CVA tenderness Back/Spine/Pelvis: Back: no CVA tenderness and No back tenderness Skin: General skin exam: no rashes or lesions noted, elasticity normal and turgor normal Neuro: General: oriented to person, oriented to place, oriented to time, patient oriented x3, gait normal, tone normal, moves all extremities, Normal light touch and pain sensation, no meningeal signs, no focal motor deficits, CN's II-XI intact bilaterally and normal sensation to monofilament Extrem: General: Yes normal to inspection and Yes full ROM Shoulder/upper arm images: 1. positive for tenderness on palpation and range of motion. Negative for crepitus, ecchymosis or deformity. Vascular/ motor/nerve exam intact. Negative for swelling or erythema. negative for warmth. Psych: Appearance: grossly normal, well kempt and not disheveled Course Course Course Narrative: This is an RME: Additional HPI, ROS, PE not included below will be deferred to primary provider. 47 year old female presents w/ L shoulder s/p lifting a heavy pumpkin a few days ago. At times L arm tingling. Plan- xray Medical Decision Making Medical Decision Making [facility] Narrative: 47 yold male presents to the ED left shoulder pain that is worse on movement after heavy lifting of the arm. Patient patient denies any chest pain, neck pain, shortness of breath. Left upper extremity motor/ neuro/vascular exam intact. Negative signs for cellulitis or fracture. EKG negative STEMI. Troponin negative. Patient will follow-up with primary care provider. Patient informed she would need MRI to rule out rotator cuff tear Differential Diagnosis Differential Diagnoses: The differential diagnosis associated with the presentation includes (MD, shoulder disclocation, shoulder fracture, rotator cuff injury) Admission/Observation Consideration of admission/observation: Escalation of care including admission/observation considered Lab Data [facility] Lab Attestation statement: I reviewed the patient's lab results. 07/18/23 17:59 07/18/23 17:59 Labs: Lab Results 07/18/23 Range/Units 17:59 WBC 7.4 (4.8-10.8) X10*3/uL RBC 4.76 (4.20-5.50) X10*6/uL Hgb 12.9 (12.0-16.0) g/dl Hct 39.4 (37.0-47.0) % MCV 82.8 (80.0-98.0) fL MCH 27.1 (27.0-33.0) pg MCHC 32.7 (31.0-35.0) g/dl RDW 15.3 (11.0-16.0) % Plt Count 149 L (160-400) X10*3/uL MPV 9.5 (9.4-12.3) fL Immature Gran % (Auto) 0.4 (0.0-0.4) % Neut % (Auto) 62.1 (45-73) % Lymph % (Auto) 24.8 (20-40) % [place] % (Auto) 11.0 (2-11) % Eos % (Auto) 1.3 (0-4) % Baso % (Auto) 0.4 (0-2) % Lymph # (Auto) 1.8 (1.2-4.9) X10*3/uL [place] # (Auto) 0.8 (0.1-1.2) X10*3/uL Eos # (Auto) 0.1 (0.0-0.4) X10*3/uL Baso # (Auto) 0.0 (0.0-0.2) X10*3/uL Abs Immat Gran (auto) 0.03 (0.00-0.03) X10*3/uL Absolute Neuts (auto) 4.6 (2.0-8.3) x10*3/uL Absolute Nucleated RBC 0.000 (0.0-0.012) X10*3/uL Nucleated RBC % (auto) 0.0 (0.0-0.2) /100WBC PT 11.8 (11.1-13.3) SEC INR 1.0 (0.9-1.1) APTT 32.7 (26.0-36.4) SEC Sodium 144 (135-145) mmol/L Potassium 4.4 (3.3-5.1) mmol/L Chloride 114 H (96-108) mmol/L Carbon Dioxide 21 L (22-29) mmol/L Anion Gap 13 (12-20) BUN 10 (9-16) mg/dL Creatinine 0.95 (0.5-1.4) mg/dL Estim Creat Clear Calc 88.0 Estimated GFR > 60 Random Glucose 82 (60-115) mg/dL Calcium 9.6 (8.4-10.2) mg/dL Total Bilirubin 0.2 (0.0-1.0) mg/dL AST 18 (5-31) U/L ALT 22 (0-31) U/L Alkaline Phosphatase 77 (39-117) U/L Troponin I High Sens 3.6 (<3.5-17.0) ng/L Total Protein 7.4 (6.5-8.0) g/dL Albumin 4.3 (3.5-5.0) g/dL Independent Interpretation I performed an independent interpretation of an: EKG (Normal sinus rhythm. negative stemi) and Plain X-Ray Radiology Impression Discussion of test interpretation with radiology: I have reviewed the radiologist's reading. External Record Review External record reviewed: Other (prior ED visist) Prescription Management I considered prescription management with: Pain Medication Discharge Plan Discharge Clinical Impression: Shoulder sprain Patient Disposition: Home, Self-Care Instructions: Shoulder Sprain (ED) Additional Instructions: you will need follow-up with your primary care provider for possible MRI to rule out any rotator cuff muscle tear. He will be discharged with pain medication. return to the ED immediately for chest pain, shortness of breath, neck pain, worsening shoulder pain, swelling, redness, blue discoloration, stiffness, tingling, paralysis, or any other concerning symptoms. Prescriptions: New tramadol 50 mg tablet 50 mg PO Q6H PRN (Reason: pain) 3 Days Qty: 12 0RF prednisone 20 mg tablet 40 mg PO DAILY 5 Days Qty: 10 0RF No Action cefuroxime axetil 250 mg tablet 250 mg PO BID 7 Days Qty: 14 0RF Stand Alone Forms: Work/School Release Interventions: ED Discharge Assessment Last Done: 07/18/23 18:59 Discharge Date/Time: 07/18/23 19:01 Print Language: [place]ib[place]ian
--- NOTE | 2023-07-18 17:42 | ECG_ITS ---
Test Reason : SHOULDER PAIN Blood Pressure : / mmHG Vent. Rate : 068 BPM Atrial Rate : 068 BPM P-R Int : 152 ms QRS Dur : 106 ms QT Int : 420 ms P-R-T Axes : 023 -38 052 degrees QTc Int : 446 ms Normal sinus rhythm Left axis deviation Intra-ventricular conduction delay Abnormal ECG When compared with ECG of 22-JAN-2023 23:36, No significant change was found Referred By: Cliff Lindsey Electronically Signed By:MONI LARA MD
[2023-07-18 18:08] LABS: MANUAL DIFF FLAG NO
[2023-07-18 18:10] LABS: Basophils Percent Auto 0.4 % (0-2); Eosinophils Absolute Auto 0.1 X10*3/uL (0.0-0.4); Eosinophils Percent Auto 1.3 % (0-4); Hematocrit 39.4 % (37.0-47.0); Hemoglobin 12.9 g/dl (12.0-16.0); Imm Gran Abs Auto 0.03 X10*3/uL (0.00-0.03); Imm Gran Pct Auto 0.4 % (0.0-0.4); Lymphocytes Absolute Auto 1.8 X10*3/uL (1.2-4.9); Lymphocytes Percent Auto 24.8 % (20-40); Mean Corpuscular HGB Conc 32.7 g/dl (31.0-35.0); Mean Corpuscular Hemoglobin 27.1 pg (27.0-33.0); Mean Corpuscular Volume 82.8 fL (80.0-98.0); Mean Platelet Volume 9.5 fL (9.4-12.3); Monocytes Absolute Auto 0.8 X10*3/uL (0.1-1.2); Neutrophils Absolute Auto 4.6 x10*3/uL (2.0-8.3); Neutrophils Percent Auto 62.1 % (45-73); Platelet Count 149 X10*3/uL (160-400); Red Blood Count 4.76 X10*6/uL (4.20-5.50); Red Cell Distribution Width 15.3 % (11.0-16.0); White Blood Count 7.4 X10*3/uL (4.8-10.8)
[2023-07-18 18:15] LABS: Prothrombin Time 11.8 SEC (11.1-13.3)
[2023-07-18 18:18] LABS: Partial Thromboplastin Time 32.7 SEC (26.0-36.4)
[2023-07-18 18:24] LABS: Alanine Aminotransferase 22 U/L (0-31); Albumin Level 4.3 g/dL (3.5-5.0); Alkaline Phosphatase 77 U/L (39-117); Anion Gap 13 (12-20); Aspartate Amino Transferase 18 U/L (5-31); Bilirubin Total 0.2 mg/dL (0.0-1.0); Blood Urea Nitrogen 10 mg/dL (9-16); Calcium 9.6 mg/dL (8.4-10.2); Carbon Dioxide 21 mmol/L (22-29); Chloride 114 mmol/L (96-108); Estimated Glomerular Filt Rate > 60; Glucose Random 82 mg/dL (60-115); Potassium 4.4 mmol/L (3.3-5.1); Sodium 144 mmol/L (135-145); Total Protein 7.4 g/dL (6.5-8.0)
[2023-07-18 18:32] LABS: Troponin-I High Sensitivity 3.6 ng/L (<3.5-17.0)
== END 2023-07-18 19:01 | disposition home or self-care (01) ==
PROVIDERS: Physician Assistant; Emergency Provider Internal Medicine; PCP Nurse Practitioner Family
DX: S43.402A Unspecified sprain of left shoulder joint, initial encounter (principal); R94.31 Abnormal electrocardiogram [ECG] [EKG]; X50.0XXA Overexertion from strenuous movement or load, initial encounter; Y93.9 Activity, unspecified; Y92.9 Unspecified place or not applicable; Y99.9 Unspecified external cause status; Z79.899 Other long term (current) drug therapy
CPT/HCPCS: 36415; 73030; 80053; 84484; 85025; 85610; 85730; 93005; 99283

== ENCOUNTER 2024-03-20 10:44 | Outpatient (AMB) | payer MEDICARE, MEDICAID, SELFPAY ==
[2024-03-20 10:47] VITALS: BP 129/72; PULSE 88; O2SAT 97; BMI 34.6
--- NOTE | 2024-03-20 10:47 | A.OFFVIS_ITS ---
Vital Signs 03/20/24 10:47 Height 5 ft 7 in Weight 221 lb BMI 34.6 BP 129/72 Blood Pressure Location Rt brachial Position Sitting Pulse 88 Pulse Source Pulse Oximeter Pulse Oximetry (%) 97 Oxygen Delivery Method Room Air Intake Visit Reasons: Vertebrogenic Low Back Pain Allergies clonazepam Allergy (Verified 03/20/24 10:49) Rash naproxen Allergy (Verified 03/20/24 10:49) Palpitations omeprazole Adverse Reaction (Unverified 03/20/24 10:49) Rash HPI HPI Vertebrogenic Low Back Pain: Details: 48-year-old female who presents today to the office for an evaluation of vertebrogenic low back pain. The patient reports low back pain with intermittent numbness and weakness into her legs. She was referred to us for the consideration of intracept procedure at L5-S1 by [facility]. She had bilateral L3-L4-L5 medial branch radiofrequency neurotomy on 12/16/2023 that provided two weeks of relief. She had L5-S1 interlaminar injection on 02/02/24 with no relief. She had bilateral L3-L5 medial branch blocks on 11/10/23. She reports pain in the midline low back at L5-S1. She rates her pain at 9/10 in intensity. She has completed physical therapy and has been doing home exercises. She has been treated for MS at the [facility] at [facility]. She has been taking Aleve, Tylenol, tizanidine, and meloxicam. [facility] Medical History (Updated 03/22/24 @ 17:00 by Ricardo De La Cruz MD) Hypothyroidism Obesity Hyperlipidemia Asthma Multiple sclerosis Social History Alcohol intake: never Substance Use Type: Marijuana Review of Systems Const All systems reviewed & are unremarkable except as noted in HPI and below Physical Exam Vital Signs: Last Vital Signs Pulse 88 03/20/24 10:47 BP 129/72 03/20/24 10:47 Pulse Ox 97 03/20/24 10:47 Oxygen Delivery Method Room Air 03/20/24 10:47 BMI result Body Mass Index 34.6 General: Appears afebrile. Alert and oriented. Mood and affect appropriate. Follows and participates in conversation appropriately. Respiratory effort is unlabored. Able to transition from sit to stand unassisted. Ambulates with bilaterally normal heel strike and toe off. Lumbar flexion reproduces pain. Anterior column loading reproduces pain. Lateral rotation also causes pain. Results Reviewed Results Reviewed: 12/02/2022: MR LUMBAR SPINE. FINDINGS: NUMBERING: The study assumes 5 [id number] lumbar type vertebral bodies. ALIGNMENT, VERTEBRAE, MARROW, AND DISCS: Alignment is normal. Vertebral body heights are preserved. There are multilevel endplate osteophytes with subtle Modic type II degenerative endplate signal changes at L5-S1. There is disc desiccation from L2-L3 through L5-S1, new at L2-L3, with posterior annular fissures again seen at L4-L5 and L5-S1. However, intervertebral disc heights are maintained at these levels. Remaining intervertebral discs are preserved in height and signal. CONUS: The conus is normal in signal and contour, with normal level of termination at L1. PARASPINAL TISSUES: Mild atrophy of the posterior paraspinal musculature. DETAILED FINDINGS BY LEVEL: L1-L2: No significant canal stenosis or neural foraminal narrowing. L2-L3: No significant canal stenosis or neural foraminal narrowing. L3-L4: There is facet arthropathy with small synovial cysts extending from the posterior inferior aspect of the left facet joint. No significant canal stenosis or neural foraminal narrowing. L4-L5: Minimal disc bulge with right paracentral protrusion which has decreased in size since the prior, slightly crowding the traversing right L5 nerve roots, less than on the previous exam. Mild facet spurring. No significant canal stenosis or neural foraminal narrowing. L5-S1: No significant canal stenosis or neural foraminal narrowing. IMPRESSION: Degenerative changes of the lumbar spine as described above. Decreased size of the disc protrusion at L4-L5 with reduced crowding of the right L5 nerve roots. No evidence for new nerve root impingement. Assessment & Plan Assessment & Plan (1) Vertebrogenic low back pain: Code(s): M54.51 - Vertebrogenic low back pain Category: Medical Plan Will schedule her for a L3-L4-L5-S1 BVN ablation. Discussed the risks and benefits of the procedure with the patient in detail. All questions were answered. The patient is on board with the plan. Informed the patient that insurance approval is required. We will file a PA for approval and keep her updated. Justification for interventional therapy: ? Patient with average pain > 6/10 ? Patient has exhausted conservative therapy including multiple injections, physical therapy, oral medications . Patient has a good understanding of their pain condition and has appropriate mental and social support Scribed for Dr. De La Cruz by Shant Fry, medical orderly, on 03/20/2024. I, Dr. De La Cruz, have personally reviewed and agree with the information entered by the scribe. Medications: Discontinued prednisone Discontinued Reason: Patient no longer taking 40 mg (2 x 20 mg) PO DAILY 5 days 10 tabs 0RF Coding Level of Care Code New Pt Level 4 (76096) Diagnoses Vertebrogenic low back pain M54.51
== END 2024-03-20 11:07 | disposition home or self-care (01) ==
PROVIDERS: PCP Nurse Practitioner Family; Referring Provider Student in an Organized Health Care Education/Training Program; Visit Provider Internal Medicine
DX: M54.51 Vertebrogenic low back pain (principal)
CPT/HCPCS: 99204

== ENCOUNTER → 2024-03-20 10:44 | Outpatient (BNVA) | payer MEDICARE, MEDICAID, SELFPAY | PROVIDERS: PCP Nurse Practitioner Family; Referring Provider Student in an Organized Health Care Education/Training Program; Visit Provider Internal Medicine | DX: M54.51 Vertebrogenic low back pain (principal); M51.26 Other intervertebral disc displacement, lumbar region | CPT/HCPCS: 99202 ==

== ENCOUNTER 2024-05-12 07:36 | Day surgery (SDC) | payer MEDICARE, MEDICAID, SELFPAY ==
[2024-05-09 15:34] VITALS: BMI 34.6
[2024-05-12 08:16] VITALS: BMI 34.6
[2024-05-12] MEDS: Lactated Ringers 1,000 ML 50 ML IVCONT (08:21)
[2024-05-12 08:28] VITALS: BP 114/70; PULSE 82; RESP 18; TEMP 36.6; O2SAT 95
[2024-05-12] MEDS: Albuterol/Iprat 2.5/0.5MG 3 ML AMPUL.NEB INHALE (09:04)
--- NOTE | 2024-05-12 09:06 | HO.ANESPROP2 ---
[facility] Active Problems Active Problems: All Active Problems Vertebrogenic low back pain (Acute) Past Medical History Medical History (Updated 05/10/24 @ 09:09 by Sofia Mcdonald RN) Fibromyalgia Hypothyroidism Obesity Hyperlipidemia Asthma Multiple sclerosis Family History Family history of problems with anesthesia: No Surgical History Surgical History (Updated 05/12/24 @ 08:43 by Izzy Chew RN) History of radiofrequency ablation (RFA) of nerve of lumbar spine Hx of colonoscopy Hx of esophagogastroduodenoscopy Hx of tubal ligation Hx of appendectomy History of Problems with Anesthesia: No Social History Social History Are you a primary care navigator to a significant other at home: No Do you presently have visiting nurse or other home services: No Alcohol intake: never Patient Tobacco Use Status: Current everyday Tobacco user Tobacco use type: Cigarette Smoked in Last 30 Days: Yes Patient Interested in Nicotine Replacement: No Substance Use Type: Marijuana Substance Use Frequency: Daily Have you been hit, kicked, punched, or otherwise hurt by someone within the past year? If so, by whom?: No Are you DNR?: No Advance Directives: No Advance Directives Information Provided: Yes Recently lost weight without trying: No Nutrition Risks: No Nutritional Risk FDLMP: 04/22/24 Meds Allergies Allergy/AdvReac Type Severity Reaction Status Date / Time clonazepam Allergy Intermediate Rash Verified 05/12/24 08:44 naproxen Allergy Intermediate Palpitation Verified 05/12/24 08:44 s omeprazole AdvReac Intermediate Rash Verified 05/12/24 08:44 Active Medications: Current Medications Lactated Ringer's (Lr) 1,000 mls @ 50 mls/hr IVCONT .Q20H CHAYO Last Admin: 05/12/24 08:21 Dose: 50 mls/hr Home Medications ?Medication ?Instructions ?Recorded ?Confirmed ?Last Taken ?Type albuterol sulfate 90 mcg/actuation 1 inh inhalation Q4H PRN Shortness 03/20/24 05/10/24 Unknown History aerosol inhaler Of Breath Or Wheezing amitriptyline 10 mg tablet 20 mg PO BEDTIME 03/20/24 05/10/24 Unknown History baclofen 10 mg tablet 10 mg PO TID 03/20/24 05/10/24 Unknown History cariprazine 6 mg capsule (Vraylar) 6 mg PO DAILY 03/20/24 05/10/24 Unknown History doxycycline hyclate 100 mg tablet 100 mg PO DAILY 03/20/24 05/10/24 Unknown History duloxetine 60 mg capsule,delayed 60 mg PO DAILY 03/20/24 05/10/24 Unknown History release famotidine 20 mg tablet 20 mg PO DAILY 03/20/24 05/10/24 Unknown History gabapentin 300 mg capsule 300 mg PO TID 03/20/24 05/10/24 Unknown History levothyroxine 75 mcg tablet 75 mcg PO DAILY 03/20/24 05/10/24 Unknown History meloxicam 15 mg tablet 15 mg PO DAILY 03/20/24 05/10/24 Unknown History metformin 500 mg tablet 500 mg PO DAILY 03/20/24 05/10/24 Unknown History modafinil 100 mg tablet 100 mg PO DAILY 03/20/24 05/10/24 Unknown History pantoprazole 20 mg tablet,delayed 20 mg PO DAILY 03/20/24 05/10/24 Unknown History release prazosin 1 mg capsule 1 mg PO BEDTIME 03/20/24 05/10/24 Unknown History prazosin 5 mg capsule 5 mg PO BEDTIME 03/20/24 05/10/24 Unknown History rosuvastatin 10 mg tablet 10 mg PO BEDTIME 03/20/24 05/10/24 Unknown History Exam Height,Weight and Vital Signs: Height 5 ft 7 in Weight 100.244 kg Last Vital Signs Temp 97.9 F 05/12/24 08:28 Pulse 82 05/12/24 08:28 Resp 18 05/12/24 08:28 BP 114/70 05/12/24 08:28 Pulse Ox 95 05/12/24 08:28 O2 Del Method Room Air 05/12/24 08:28 Airway Mallampati Class: III TM Dist: >3cm Neck ROM: Full Loose/Missing/Broken Teeth: Upper and Lower Assessment and Plan Assessment Anesthesia Assessment: Anesthesia Plan Discussed and Chart Reviewed Final Anesthetic Review Family History of Problems with Anesthesia: No History of Problems with Anesthesia: No NPO: Yes ASA Class: III Final Preanesthetic Review: No Changes in Pt Med Stat, Meds/Allgs Chart Reviewed, Consent Obtained/Reviewed and Anes Risks/Benef Reviewed Patient Risk: Intermediate Procedure Risk: Low Anesthetic Plan Anesthetic Plan: GA Disposition: Standard PACU
--- NOTE | 2024-05-12 09:07 | MHC.SHP ---
Pre-Procedural Eval Section A - 24 Hr Update-Section A only Date of Service: 05/12/24 The patient is an INPATIENT: No Changes since office visit: Yes Patient answered all questions The patient has been examined within 24 hours of the surgical procedure. The History & Physical has been completed within 30 days and I have reviewed it.: No Section B - Complete if H&P > 30 days Chief Complaint: Vertebrogenic low back pain Relevant Family History (Specify if Yes): Yes Relevant Social History: None Present Medications: see Short Stay Collaborative assessment Medical History: No relevant PMH History of Previous Operations: No relevant previous surgery Allergies: Allergies Allergy/AdvReac Type Severity Reaction Status Date / Time clonazepam Allergy Intermediate Rash Verified 05/12/24 08:44 naproxen Allergy Intermediate Palpitation Verified 05/12/24 08:44 s omeprazole AdvReac Intermediate Rash Verified 05/12/24 08:44 Review of Systems Sugical H&P ROS: Negative: Constitution, Cardiovascular and Respiratory Exam Surgical H&P Exam: Normal: HEENT, Normal: Heart and Normal: Lungs Plan Diagnosis/Plan: Unchanged I have reviewed the history and physical and performed a pertinent physical examination on my patient. No changes have occurred unless specified. Time Spent With Patient Time: Total time managing care of this patient today ____ minutes.
--- NOTE | 2024-05-12 09:33 | P.OP_ITS ---
Operative Note Operative Note Date of Service: 05/12/24 Narrative: Preoperative diagnosis: Vertebrogenic low back pain Postoperative diagnosis: Same Procedure: Basivertebral nerve (BVN) ablation ? Intracept Procedure L3, L4, L5, S1 Procedure Time Out: Patient ID confirmed, correct procedure to be performed, correct site and/or side for procedure as per marked location and correct medication(s), including antibiotic to be used for the procedure. Description of Procedure: After receiving anesthesia in the supine position, the patient was placed prone on the operating room table and all pressure points w ere appropriately padded. The back was sterilely prepped and draped. The C-arm was sterilely draped and moved into position to visualize the S1 vertebral body in the AP and lateral plane. The C-arm was rotated to a Panchal view to square off the superior endplate at S1. The C-arm was then rotated to the right approximately 20 degrees for an approach to the right S1 pedicle. The skin entry point was identified and infiltrated with 1% lidocaine using a 25-gauge 1-1/2 inch needle. A skin incision was made with 15 scalpel blade. The introducer cannula with bevel tip was then introduced through the skin, subcutaneous tissue and paraspinal muscle until bony contact was made. The position was checked in the AP and lateral plane. Using a mallet, the trocar was then advanced through the pedicle to the posterior aspect of the vertebral body using a combination of AP and lateral views to ensure appropriate traversing of the pedicle and no breaching of the pedicle medially. Once the trocar was in the posterior aspect of the S1 vertebral body, the trocar was removed from the cannula and the curved cannula assembly with the nitinol J-stylet was inserted. The spin wheel was rotated counterclockwise permitting excursion of the J-stylet. The curved cannula assembly was then advanced using a mallet in 1-2 mm increments. The J- stylet was observed to traverse the vertebral body in the AP and lateral views. The J-stylet was removed and replaced with the straight stylet to reach the BVN target. Target was reached when the tip of the stylet was 50% anterior of the posterior wall of the S1 in the lateral view (midway between the superior and inferior endplates) and it crossed the midline of the S1 spinous process in the AP view. The stylet was then removed. The bipolar radiofrequency (RF) probe was connected to the generator and then inserted into the introducer cannula in its ablation position. The spin wheel was rotated clockwise to retract the PEEK sleeve to expose the proximal electrode on the radiofrequency probe. The BVN was then ablated using [employer]?s targeted RFG algorithm. While the ablation was occurring at S1, the C-arm was moved to visualize the target at the superolateral aspect of the L5 vertebral body. The C-arm was rotated to square off the superior endplate at L5 and rotated left to obtain an oblique view. The superolateral left L5 pedicle was identified for access. The same process was utilized to place the tip of the cannular 50% anterior of the posterior wall of the L5 in the lateral view (midway between the superior and inferior endplates) and it crossed the midline of the L5 spinous process in the AP view. The stylet was then removed. The bipolar radiofrequency (RF) probe was removed from the previous vertebral body, the tip cleaned and was inserted into the introducer cannula in its ablation position. The spin wheel was rotated clockwise to retract the PEEK sleeve to expose the proximal electrode on the radiofrequency probe. The BVN was then ablated using [employer]?s targeted RFG algorithm. While the ablation was occurring at L5, the C-arm was moved to visualize the target at the superolateral aspect of the L4 vertebral body using the approach similar to the L5 vertebral body. The C-arm was rotated to square off the superior endplate at L4 and rotated approximately to the right to obtain an oblique view. The superolateral right L4 pedicle was identified, and the skin entry point identified. Same steps were followed as for L5. Target was reached when the tip of the stylet was 50% anterior of the posterior wall of the L4 in the lateral view (midway between the superior and inferior endplates) and it crossed the midline of the L4 spinous process in the AP view. The stylet was then removed. The bipolar radiofrequency (RF) probe was removed from the previous vertebral body, the tip cleaned and was inserted into the introducer cannula in its ablation position. The spin wheel was rotated clockwise to retract the PEEK sleeve to expose the proximal electrode on the radiofrequency probe. The BVN was then ablated using [employer]?s targeted RFG algorithm. While the ablation was occurring at L4, the C-arm was moved to visualize the target at the superolateral aspect of the L3 vertebral body. The C-arm was rotated to square off the superior endplate at L3 and rotated left to obtain an oblique view. The superolateral left L3 pedicle was identified for access. The same process was utilized to place the tip of the cannular 50% anterior of the posterior wall of the L3 in the lateral view (midway between the superior and inferior endplates) and it crossed the midline of the L5 spinous process in the AP view. The stylet was then removed. The bipolar radiofrequency (RF) probe was removed from the previous vertebral body, the tip cleaned and was inserted into the introducer cannula in its ablation position. The spin wheel was rotated clockwise to retract the PEEK sleeve to expose the proximal electrode on the radiofrequency probe. The BVN was then ablated using [employer]?s targeted RFG algorithm. With all ablations completed, the instruments were removed from the vertebral bodies. The surgical wounds were closed with 2-0 silk sutures and a sterile dressing was applied. The patient was returned to the supine position and the anesthesia reversed. The patient tolerated the procedure well and was brought to the recovery room. The patient was provided post-op and follow up instructions. Complications: None Estimate Blood Loss: 40 mL
--- NOTE | 2024-05-12 09:33 | PM.OP ---
Brief Operative Note Date of Service: 05/12/24 Pre-op diagnosis: Vertebrogenic low back pain Post-op diagnosis: same Procedure: Basivertebral nerve ablation, L3, L4, L5, S1 Surgeon: Ricardo De La Cruz MD Anesthesia: GETA Was an Vertical Boring Mill Operator used for this Procedure?: No Estimated blood loss (mL): 40 Pathology: none sent Condition: stable Disposition: PACU
[2024-05-12 11:50] VITALS: BP 137/73; PULSE 76; RESP 26; TEMP 36.1; O2SAT 97
[2024-05-12 11:55] VITALS: BP 124/73; PULSE 80; RESP 24; O2SAT 99
[2024-05-12 12:00] VITALS: BP 124/73; PULSE 82; RESP 22; O2SAT 99
[2024-05-12 12:05] VITALS: BP 125/76; PULSE 82; RESP 20; O2SAT 97
[2024-05-12] MEDS: oxyCODONE HCl Immed Release 5 MG TABLET PO (12:16)
[2024-05-12 12:20] VITALS: BP 135/75; PULSE 72; RESP 18; TEMP 36.3; O2SAT 100
== END 2024-05-12 12:41 | disposition home or self-care (01) ==
PROVIDERS: PCP Nurse Practitioner Family; Visit Provider Internal Medicine
PROC: (CPT 64628; principal; 2024-05-12 09:20)
DX: M54.51 Vertebrogenic low back pain (principal); G35 Multiple sclerosis; E78.5 Hyperlipidemia, unspecified; J45.909 Unspecified asthma, uncomplicated; E03.9 Hypothyroidism, unspecified; E66.9 Obesity, unspecified; Z68.34 Body mass index [BMI] 34.0-34.9, adult; Z79.899 Other long term (current) drug therapy; Z88.6 Allergy status to analgesic agent; Z88.8 Allergy status to other drugs, medicaments and biological substances
CPT/HCPCS: 64628; 64629 ×2; C1889; J0690; J1100; J2250; J2405; J2704; J2795; J3010

== ENCOUNTER → 2024-05-12 07:36 | Outpatient (BNV) | payer MEDICARE, MEDICAID, SELFPAY | PROVIDERS: PCP Nurse Practitioner Family; Visit Provider Internal Medicine | DX: M54.51 Vertebrogenic low back pain (principal) | CPT/HCPCS: 64628; 64629 ==

== ENCOUNTER 2024-05-15 13:52 | Emergency (ER) | payer MEDICARE, MEDICAID, SELFPAY ==
[2024-05-15 14:26] VITALS: BP 128/84; PULSE 84; RESP 18; TEMP 36.8; O2SAT 98; BMI 34.1
--- NOTE | 2024-05-15 14:26 | ED.GENADULT ---
HPI - General Adult General Chief complaint: Skin/Abscess/Foreign Body Stated complaint: need huan on face checked Source: patient Mode of arrival: ambulatory Limitations: no limitations History of Present Illness ED Provider: Radha Bryant PA-C HPI narrative: Patient is a 48 year old assigned female at with a history of recent pain procedure on 05/12/2024 presenting to the emergency department today with a huan on the left side of her face. Patient states that after she woke up from her procedure, she had a new huan on her left facial cheek. Patient states that the area nunez and she isn't sure what it's from. Patient states that she has a history of chicken pox as a child. Patient denies any dizziness, lightheadedness, abdominal pain, nausea, vomiting, fever, chills, blurry vision, double vision, loss of vision, chest pain, difficulty breathing, shortness of breath, back pain, night sweats, pain with urination, increased urinary frequency, increased urinary urgency, blood in her urine or stool, syncope or a near syncopal episode, recent trauma or falls, bowel incontinence, bladder incontinence, or any other complaints at this time. Relieving factors: none Exacerbating factors: none Associated symptoms: denies other symptoms Treatments prior to arrival: none Related Data Home Medications ?Medication ?Instructions ?Recorded ?Confirmed albuterol sulfate 90 mcg/actuation 1 inh inhalation Q4H PRN Shortness 03/20/24 05/10/24 aerosol inhaler Of Breath Or Wheezing amitriptyline 10 mg tablet 20 mg PO BEDTIME 03/20/24 05/10/24 baclofen 10 mg tablet 10 mg PO TID 03/20/24 05/10/24 cariprazine 6 mg capsule (Vraylar) 6 mg PO DAILY 03/20/24 05/10/24 doxycycline hyclate 100 mg tablet 100 mg PO DAILY 03/20/24 05/10/24 duloxetine 60 mg capsule,delayed 60 mg PO DAILY 03/20/24 05/10/24 release famotidine 20 mg tablet 20 mg PO DAILY 03/20/24 05/10/24 gabapentin 300 mg capsule 300 mg PO TID 03/20/24 05/10/24 levothyroxine 75 mcg tablet 75 mcg PO DAILY 03/20/24 05/10/24 meloxicam 15 mg tablet 15 mg PO DAILY 03/20/24 05/10/24 metformin 500 mg tablet 500 mg PO DAILY 03/20/24 05/10/24 modafinil 100 mg tablet 100 mg PO DAILY 03/20/24 05/10/24 pantoprazole 20 mg tablet,delayed 20 mg PO DAILY 03/20/24 05/10/24 release prazosin 1 mg capsule 1 mg PO BEDTIME 03/20/24 05/10/24 prazosin 5 mg capsule 5 mg PO BEDTIME 03/20/24 05/10/24 rosuvastatin 10 mg tablet 10 mg PO BEDTIME 03/20/24 05/10/24 Previous Rx's ?Medication ?Instructions ?Recorded tramadol 50 mg tablet 50 mg PO Q6H PRN pain 3 days #12 07/18/23 tabs oxycodone-acetaminophen 5 mg-325 1 tab PO Q6H PRN pain #16 tabs 05/12/24 mg tablet Allergies Allergy/AdvReac Type Severity Reaction Status Date / Time clonazepam Allergy Intermediate Rash Verified 05/15/24 14:30 naproxen Allergy Intermediate Palpitation Verified 05/15/24 14:30 s omeprazole AdvReac Intermediate Rash Verified 05/15/24 14:30 Review of Systems Constitutional: Constitutional: Reports no additional constitutional complaints, Denies chills, Denies fever(s) and Denies night sweats Eyes: Eyes: Reports no additional eye complaints, Denies blurry vision, Denies change in vision, Denies diplopia, Denies eye discharge, Denies loss of vision and Denies eye pain ENT: Denies dizziness Comments: left sided facial huan Cardiovascular: Cardiovascular: Reports no additional cardiovascular complaints, Denies chest pain, Denies lightheadedness, Denies Loss of Consciousness and Denies dyspnea Respiratory: Respiratory: Reports no additional respiratory complaints and Denies dyspnea Gastrointestinal: Gastrointestinal: Reports no additional gastrointestinal complaints, Denies abdominal pain, Denies melena, Denies hematochezia, Denies change in bowel habits and Denies change in stool character Genitourinary: Genitourinary: Denies hematuria, Denies urinary frequency, Denies dysuria, Denies urinary incontinence, Denies urinary hesitancy and Denies urinary urgency Musculoskeletal: Musculoskeletal: Reports no additional musculoskeletal complaints, Denies numbness and Denies tingling Neurologic: Denies dizziness, Denies loss of vision, Denies numbness and Denies tingling Psychiatric: Psychiatric: Reports no additional psychiatric complaints Endocrine: Endocrine: Reports no additional endocrine complaints Hematologic/Lymphatic: Hematologic/Lymphatic: Reports no additional hematologic/lymphatic complaints Allergic/Immunologic: Allergic/Immunologic: Reports no additional allergic/immunologic complaints PMFSH Past Medical History Attestation statement: The following information was validated with the patient. Source: old records reviewed and nursing notes reviewed Medical History Fibromyalgia Hypothyroidism Obesity Hyperlipidemia Asthma Multiple sclerosis Surgical History History of radiofrequency ablation (RFA) of nerve of lumbar spine Hx of colonoscopy Hx of esophagogastroduodenoscopy Hx of tubal ligation Hx of appendectomy Social History Social History Are you a primary critical care transport nurse to a significant other at home: No Do you presently have visiting nurse or other home services: No Alcohol intake: never Patient Tobacco Use Status: Current everyday Tobacco user Tobacco use type: Cigarette Substance Use Type: Marijuana Advance Directives: No Advance Directives Information Provided: Yes Do you have a plan to hurt others: No Plan Physical Exam ED Vital Signs: Vital Signs - 24 hr 05/15/24 14:26 Temperature 98.2 F Pulse Rate 84 Respiratory Rate 18 Blood Pressure 128/84 Pulse Oximetry 98 Oxygen Delivery Method Room Air BMI result Body Mass Index 34.1 Const General: cooperative, no acute distress, alert and awake Nutritional Appearance: well nourished Orientation/consciousness: patient oriented x3 Limitations: no limitations [facility] Head: Yes normal to inspection and Yes atraumatic Ears: hearing grossly normal bilaterally and external ears normal General nose exam: Normal external nose present, no nasal discharge noted and no epistaxis Face images: 1. lesion - no gaping, no active bleeding Mouth: Normal oral and palatal mucosa present, no drooling and no muffled voice Eyes General: appearance normal, both eyes and all related structures Periorbital: periorbital findings normal Eyelids: Yes eyelids normal Conjunctivae: conjunctivae normal Pupils: Equal, round and reactive pupils present EOM: EOMs intact bilaterally Neck Neck: Yes normal visual inspection, Yes full ROM and Yes no lymphadenopathy Chest Chest palpation & inspection: normal inspection of the chest Resp Effort & Inspection: normal respiratory effort and able to speak in complete sentences GI Inspection: Yes normal to inspection Neuro General: patient oriented x3 and moves all extremities Cranial nerves: Yes Equal, round and reactive pupils present Cognition (Neuro): normal cognition Extrem General: Yes normal to inspection, Yes full ROM and Yes capillary refill normal Psych Appearance: grossly normal Mental Status: mental status grossly normal Affect: normal affect Attitude: cooperative Thought process: Normal thought process present Thought content: Normal thought content present Insight: Good insight present (Psych) Course Course Course Narrative: RME performed by Radha Bryant PA-C. Patient is a 48 year old assigned female at presenting to the emergency department with a lesion on her left cheek. Patient states that she had surgery on 05/12/2024 and woke up with a left facial cheek huan. Patient states that it nunez. Patient states that she has a history of chicken pox as a child. Detailed physical exam and review of systems are deferred to the [facility]. Labs ordered. Patient placed back in the waiting room pending room availability and results. Medical Decision Making Medical Decision Making MDM Narrative: Patient is a 48 year old assigned female at with a history recent spinal surgery presenting to the emergency department today with a huan on her face. Patient's limited physical exam performed in triage was as noted in the physical exam portion of this note. Patient's blood work was showed mildly elevated ESR and CRP but otherwise unremarkable. Patient left the department without completing treatment. Patient left the department before myself or any of the other emergency department clinicians could explain to or review with the patient; physical exam findings, test results, need or lack there of for additional testing, need or lack there of for a procedure to be performed, need or lack there of for hospital admission / transfer, need or lack there of for prescription medication, treatment options, or a treatment plan. Differential Diagnosis Differential Diagnoses: The differential diagnosis associated with the presentation includes Herpes Zoster Shingles Abrasion Laceration Admission/Observation Consideration of admission/observation: Escalation of care including admission/observation considered Patient would have been admitted to the hospital had she completed her work up and it had any findings where hospital admission was appropriate, her clinical presentation warranted hospital admission, had myself or any other emergency delivery department supervisor had the ability to discuss need or lack there of for hospital admission, and the patient hadn't left the department without completing treatment. Lab Data [facility] Lab Attestation statement: I reviewed the patient's lab results. My interpretation of these results are in the [facility] Rationale portion of this note. 05/15/24 14:47 05/15/24 14:47 Labs: Lab Results 05/15/24 Range/Units 14:47 WBC 9.3 (4.8-10.8) X10*3/uL RBC 4.65 (4.20-5.50) X10*6/uL Hgb 12.9 (12.0-16.0) g/dl Hct 39.9 (37.0-47.0) % MCV 85.8 (80.0-98.0) fL MCH 27.7 (27.0-33.0) pg MCHC 32.3 (31.0-35.0) g/dl RDW 14.7 (11.0-16.0) % Plt Count 151 L (160-400) X10*3/uL MPV 9.1 L (9.4-12.3) fL Immature Gran % (Auto) 0.4 (0.0-0.4) % Neut % (Auto) 73.6 H (45-73) % Lymph % (Auto) 15.7 L (20-40) % [place] % (Auto) 8.5 (2-11) % Eos % (Auto) 1.5 (0-4) % Baso % (Auto) 0.3 (0-2) % Lymph # (Auto) 1.5 (1.2-4.9) X10*3/uL [place] # (Auto) 0.8 (0.1-1.2) X10*3/uL Eos # (Auto) 0.1 (0.0-0.4) X10*3/uL Baso # (Auto) 0.0 (0.0-0.2) X10*3/uL Abs Immat Gran (auto) 0.04 H (0.00-0.03) X10*3/uL Absolute Neuts (auto) 6.8 (2.0-8.3) x10*3/uL Absolute Nucleated RBC 0.000 (0.0-0.012) X10*3/uL Nucleated RBC % (auto) 0.0 (0.0-0.2) /100WBC ESR 23 H (0-20) MM/HR Sodium 141 (135-145) mmol/L Potassium 4.1 (3.3-5.1) mmol/L Chloride 111 H (96-108) mmol/L Carbon Dioxide 23 (22-29) mmol/L Anion Gap 11 L (12-20) BUN 13 (9-16) mg/dL Creatinine 0.93 (0.5-1.4) mg/dL Estim Creat Clear Calc 88.2 Estimated GFR > 60 Random Glucose 88 (60-115) mg/dL Calcium 10.1 (8.4-10.2) mg/dL Magnesium 2.1 (1.6-2.6) mg/dL Total Bilirubin 0.4 (0.0-1.0) mg/dL AST 19 (5-31) U/L ALT 28 (0-31) U/L Alkaline Phosphatase 94 (39-117) U/L C-Reactive Protein 0.84 H (< or = 0.50) mg/dL Total Protein 7.1 (6.5-8.0) g/dL Albumin 4.0 (3.5-5.0) g/dL Discharge Plan Discharge Clinical Impression: Face lesion Patient Disposition: Left W/O Completing Treatment Prescriptions: No Action oxycodone-acetaminophen 5-325 mg tablet 1 tab PO Q6H PRN (Reason: pain) Qty: 16 0RF Rx Instructions: Partial Fill upon patient request. tramadol 50 mg tablet 50 mg PO Q6H PRN (Reason: pain) 3 Days Qty: 12 0RF amitriptyline 10 mg tablet 20 mg PO BEDTIME modafinil 100 mg tablet 100 mg PO DAILY gabapentin 300 mg capsule 300 mg PO TID doxycycline hyclate 100 mg tablet 100 mg PO DAILY baclofen 10 mg tablet 10 mg PO TID duloxetine 60 mg capsule,delayed release(DR/EC) 60 mg PO DAILY meloxicam 15 mg tablet 15 mg PO DAILY metformin 500 mg tablet 500 mg PO DAILY levothyroxine 75 mcg tablet 75 mcg PO DAILY pantoprazole 20 mg tablet,delayed release (DR/EC) 20 mg PO DAILY Vraylar 6 mg capsule 6 mg PO DAILY famotidine 20 mg tablet 20 mg PO DAILY rosuvastatin 10 mg tablet 10 mg PO BEDTIME prazosin 5 mg capsule 5 mg PO BEDTIME prazosin 1 mg capsule 1 mg PO BEDTIME albuterol sulfate 90 mcg/actuation HFA aerosol inhaler 1 inh inhalation Q4H PRN (Reason: Shortness Of Breath Or Wheezing) Discharge Date/Time: 05/15/24 18:16
[2024-05-15 14:52] LABS: MANUAL DIFF FLAG NO
[2024-05-15 14:53] LABS: Basophils Percent Auto 0.3 % (0-2); Eosinophils Absolute Auto 0.1 X10*3/uL (0.0-0.4); Eosinophils Percent Auto 1.5 % (0-4); Hematocrit 39.9 % (37.0-47.0); Hemoglobin 12.9 g/dl (12.0-16.0); Imm Gran Abs Auto 0.04 X10*3/uL (0.00-0.03); Imm Gran Pct Auto 0.4 % (0.0-0.4); Lymphocytes Absolute Auto 1.5 X10*3/uL (1.2-4.9); Lymphocytes Percent Auto 15.7 % (20-40); Mean Corpuscular HGB Conc 32.3 g/dl (31.0-35.0); Mean Corpuscular Hemoglobin 27.7 pg (27.0-33.0); Mean Corpuscular Volume 85.8 fL (80.0-98.0); Mean Platelet Volume 9.1 fL (9.4-12.3); Monocytes Absolute Auto 0.8 X10*3/uL (0.1-1.2); Monocytes Percent Auto 8.5 % (2-11); Neutrophils Absolute Auto 6.8 x10*3/uL (2.0-8.3); Neutrophils Percent Auto 73.6 % (45-73); Platelet Count 151 X10*3/uL (160-400); Red Blood Count 4.65 X10*6/uL (4.20-5.50); Red Cell Distribution Width 14.7 % (11.0-16.0); White Blood Count 9.3 X10*3/uL (4.8-10.8)
[2024-05-15 15:08] LABS: Alanine Aminotransferase 28 U/L (0-31); Alkaline Phosphatase 94 U/L (39-117); Anion Gap 11 (12-20); Aspartate Amino Transferase 19 U/L (5-31); Bilirubin Total 0.4 mg/dL (0.0-1.0); Blood Urea Nitrogen 13 mg/dL (9-16); C Reactive Protein 0.84 mg/dL (< or = 0.50); Calcium 10.1 mg/dL (8.4-10.2); Carbon Dioxide 23 mmol/L (22-29); Chloride 111 mmol/L (96-108); Creatinine Clr Calc Pharmacy 88.2; Estimated Glomerular Filt Rate > 60; Glucose Random 88 mg/dL (60-115); Magnesium 2.1 mg/dL (1.6-2.6); Potassium 4.1 mmol/L (3.3-5.1); Sodium 141 mmol/L (135-145); Total Protein 7.1 g/dL (6.5-8.0)
[2024-05-15 15:36] LABS: Erythrocyte Sedimentation Rate 23 MM/HR (0-20)
== END 2024-05-15 18:16 | disposition left against medical advice (07) ==
PROVIDERS: Physician Assistant Medical; Emergency Provider Emergency Medicine; PCP Nurse Practitioner Family
DX: L02.01 Cutaneous abscess of face (principal); F17.210 Nicotine dependence, cigarettes, uncomplicated; Z79.899 Other long term (current) drug therapy
CPT/HCPCS: 36415; 80053; 83735; 85025; 85652; 86140; 99281; 99283

== ENCOUNTER 2024-05-18 10:01 | Outpatient (AMB) | payer MEDICARE, MEDICAID, SELFPAY ==
--- NOTE | 2024-05-18 10:03 | A.OFFVIS_ITS ---
Vital Signs 05/18/24 10:06 Height 5 ft 7 in Weight 216 lb BMI 33.8 BP 126/80 Blood Pressure Location Rt brachial Position Sitting Pulse 86 Pulse Source Pulse Oximeter Pulse Oximetry (%) 97 Oxygen Delivery Method Room Air Intake Visit Reasons: S/p L3, L4, L5, and S1 BVN (Intracept) 05/12/24 Intake Note: Pain today 5/10 Inventory Associate And Driver Required: No Accompanied by: Family/Other Allergies clonazepam Allergy (Intermediate, Verified 05/18/24 10:07) Rash naproxen Allergy (Intermediate, Verified 05/18/24 10:07) Palpitations omeprazole Adverse Reaction (Intermediate, Verified 05/18/24 10:07) Rash HPI Comments Details: This is a pleasant 48-year-old female who presents today to the office for a status post L3-L4-L5-S1 BVN ablation on 05/12/[address] De La Cruz. Patient reports 50% ongoing pain relief following the procedure. She reports significant pain relief from the procedure but still has postoperative pain. Patient has been taking Percocet for moderate-severe and ice packs with good relief. She reports significant improvement with mobility, ADLs, prolonged standing or walking. She reports minimal pain with climbing stairs and is very content with the procedure outcome so far. Denies any recent cough, cold, infection, fever, any significant changes in her medical history, medications or recent hospitalizations. Past procedures: 05/12/24: Basivertebral nerve (BVN) ablation ? Intracept Procedure L3, L4, L5, S1: 50% relief. 11/11/23: Transforaminal epidural steroid injection, Right L3/4: No relief PFSH Medical History Fibromyalgia Hypothyroidism Obesity Hyperlipidemia Asthma Multiple sclerosis Surgical History History of radiofrequency ablation (RFA) of nerve of lumbar spine Hx of colonoscopy Hx of esophagogastroduodenoscopy Hx of tubal ligation Hx of appendectomy Social History Are you a primary landcare officer to a significant other at home: No Do you presently have visiting nurse or other home services: No Alcohol intake: never Patient Tobacco Use Status: Current everyday Tobacco user Tobacco use type: Cigarette Substance Use Type: Marijuana Review of Systems Const All systems reviewed & are unremarkable except as noted in HPI and below Physical Exam Vital Signs: Last Vital Signs Pulse 86 05/18/24 10:06 BP 126/80 05/18/24 10:06 Pulse Ox 97 05/18/24 10:06 Oxygen Delivery Method Room Air 05/18/24 10:06 BMI result Body Mass Index 33.8 General: Appears afebrile. No acute distress. Alert and oriented. Mood and affect appropriate. Follows and participates in conversation appropriately. Respiratory effort is unlabored. No cough. Able to transition from sit to stand unassisted. Ambulates with bilaterally normal heel strike and toe off. Her sutures were removed in the office today. The incision sites were clean, dry, and intact. Results Reviewed Results Reviewed: 12/02/2022: MR LUMBAR SPINE. FINDINGS: NUMBERING: The study assumes 5 [id number] lumbar type vertebral bodies. ALIGNMENT, VERTEBRAE, MARROW, AND DISCS: Alignment is normal. Vertebral body heights are preserved. There are multilevel endplate osteophytes with subtle Modic type II degenerative endplate signal changes at L5-S1. There is disc desiccation from L2-L3 through L5-S1, new at L2-L3, with posterior annular fissures again seen at L4-L5 and L5-S1. However, intervertebral disc heights are maintained at these levels. Remaining intervertebral discs are preserved in height and signal. CONUS: The conus is normal in signal and contour, with normal level of termination at L1. PARASPINAL TISSUES: Mild atrophy of the posterior paraspinal musculature. DETAILED FINDINGS BY LEVEL: L1-L2: No significant canal stenosis or neural foraminal narrowing. L2-L3: No significant canal stenosis or neural foraminal narrowing. L3-L4: There is facet arthropathy with small synovial cysts extending from the posterior inferior aspect of the left facet joint. No significant canal stenosis or neural foraminal narrowing. L4-L5: Minimal disc bulge with right paracentral protrusion which has decreased in size since the prior, slightly crowding the traversing right L5 nerve roots, less than on the previous exam. Mild facet spurring. No significant canal stenosis or neural foraminal narrowing. L5-S1: No significant canal stenosis or neural foraminal narrowing. IMPRESSION: Degenerative changes of the lumbar spine as described above. Decreased size of the disc protrusion at L4-L5 with reduced crowding of the right L5 nerve roots. No evidence for new nerve root impingement. Assessment & Plan Assessment & Plan (1) Vertebrogenic low back pain: Code(s): M54.51 - Vertebrogenic low back pain Category: Medical Plan Patient?s sutures were removed in the office today. The incision sites are clean, no pathological discharge, no redness, no swelling, no local temperature, no tenderness on palpation. The wounds were washed with ChloraPrep and bacitracin ointment with dry sterile dressings were applied. Patient reports significant pain relief following the procedure with improvement in her daily functioning, mobility, sleep and social interactions. Post-op pain is minimal with occasional use of Percocet and ice pack. She will continue to monitor her ongoing relief and follow up in a month and potentially consider a referral to physical therapy for ongoing rehabilitation. All questions answered and the patient agreed with the treatment plan. Follow up as needed. Coding Level of Care Code Est Pt Level 3 (93021) Diagnoses Vertebrogenic low back pain M54.51
[2024-05-18 10:06] VITALS: BP 126/80; PULSE 86; O2SAT 97; BMI 33.8
== END 2024-05-18 10:51 | disposition home or self-care (01) ==
PROVIDERS: PCP Nurse Practitioner Family; Visit Provider Nurse Practitioner Family
DX: M54.51 Vertebrogenic low back pain (principal)
CPT/HCPCS: 99024

== ENCOUNTER → 2024-05-18 10:01 | Outpatient (BNVA) | payer MEDICARE, MEDICAID, SELFPAY | PROVIDERS: PCP Nurse Practitioner Family; Visit Provider Nurse Practitioner Family | DX: M54.51 Vertebrogenic low back pain (principal) | CPT/HCPCS: 99212 ==

== ENCOUNTER 2024-06-19 10:40 | Outpatient (AMB) | payer MEDICARE, MEDICAID, SELFPAY ==
--- NOTE | 2024-06-19 10:48 | MHC.OFFVIS ---
Vital Signs 06/19/24 10:51 Height 5 ft 7 in Weight 216 lb BMI 33.8 BP 118/72 Blood Pressure Location Lt brachial Position Sitting Pulse 85 Pulse Source Pulse Oximeter Pulse Oximetry (%) 97 Oxygen Delivery Method Room Air Intake Visit Reasons: S/p L3, L4, L5, and S1 BVN (Intracept) 05/12/24 Intake Note: Pain today 04/29 Senior Master Scheduler Required: No Accompanied by: Spouse Allergies clonazepam Allergy (Intermediate, Verified 06/19/24 10:51) Rash naproxen Allergy (Intermediate, Verified 06/19/24 10:51) Palpitations omeprazole Adverse Reaction (Intermediate, Verified 06/19/24 10:51) Rash HPI Comments Details: This is a pleasant 48-year-old female who presents today to the office for a status post L3-L4-L5-S1 BVN ablation on 05/12/[address] De La Cruz. Patient reports 40-50% ongoing pain relief following the procedure. She reports partial pain relief from the procedure but still has postoperative pain especially at night. Patient reports good pain relief with Percocet which she completed. She reports wide-spread body pain consistent with fibromyalgia. She reports partial improvement with mobility, ADLs, prolonged standing or walking. She reports minimal pain with climbing stairs. Denies any recent cough, cold, infection, fever, any significant changes in her medical history, medications or recent hospitalizations. Past procedures: 05/12/24: Basivertebral nerve (BVN) ablation ? Intracept Procedure L3, L4, L5, S1: 40-50% relief. 11/11/23: Transforaminal epidural steroid injection, Right L3/4: No relief PFSH Medical History Fibromyalgia Hypothyroidism Obesity Hyperlipidemia Asthma Multiple sclerosis Surgical History History of radiofrequency ablation (RFA) of nerve of lumbar spine Hx of colonoscopy Hx of esophagogastroduodenoscopy Hx of tubal ligation Hx of appendectomy Social History Are you a primary manager wound care to a significant other at home: No Do you presently have visiting nurse or other home services: No Alcohol intake: never Patient Tobacco Use Status: Current everyday Tobacco user Tobacco use type: Cigarette Substance Use Type: Marijuana Review of Systems Const All systems reviewed & are unremarkable except as noted in HPI and below Physical Exam General: Appears afebrile. No acute distress. Alert and oriented. Mood and affect appropriate. Follows and participates in conversation appropriately. Respiratory effort is unlabored. No cough. Able to transition from sit to stand unassisted. Ambulates with bilaterally normal heel strike and toe off. The incision sites were clean, dry, and intact. Well healing scars. General: Yes no CVA tenderness Back/Spine/Pelvis Back: no CVA tenderness Cervical Spine: cervical ROM normal, cervical muscular tenderness and No Cervical spine tenderness Thoracic/Lumbar Spine: thoracic and lumbar spine normal to inspection, Thoracic/lumbar spine scar(s), Lasegue's sign negative, straight leg raise negative bilaterally, pain with thoraco-lumbar ROM, paraspinal muscle tenderness, thoraco-lumbar ROM limited, No thoracic spinal tenderness and No lumbar spinal tenderness Extrem General: Yes capillary refill normal, Yes no clubbing, cyanosis or edema and Yes no calf tenderness Results Reviewed Results Reviewed: 12/02/2022: MR LUMBAR SPINE. FINDINGS: NUMBERING: The study assumes 5 btd-bzv-rycqgws lumbar type vertebral bodies. ALIGNMENT, VERTEBRAE, MARROW, AND DISCS: Alignment is normal. Vertebral body heights are preserved. There are multilevel endplate osteophytes with subtle Modic type II degenerative endplate signal changes at L5-S1. There is disc desiccation from L2-L3 through L5-S1, new at L2-L3, with posterior annular fissures again seen at L4-L5 and L5-S1. However, intervertebral disc heights are maintained at these levels. Remaining intervertebral discs are preserved in height and signal. CONUS: The conus is normal in signal and contour, with normal level of termination at L1. PARASPINAL TISSUES: Mild atrophy of the posterior paraspinal musculature. DETAILED FINDINGS BY LEVEL: L1-L2: No significant canal stenosis or neural foraminal narrowing. L2-L3: No significant canal stenosis or neural foraminal narrowing. L3-L4: There is facet arthropathy with small synovial cysts extending from the posterior inferior aspect of the left facet joint. No significant canal stenosis or neural foraminal narrowing. L4-L5: Minimal disc bulge with right paracentral protrusion which has decreased in size since the prior, slightly crowding the traversing right L5 nerve roots, less than on the previous exam. Mild facet spurring. No significant canal stenosis or neural foraminal narrowing. L5-S1: No significant canal stenosis or neural foraminal narrowing. IMPRESSION: Degenerative changes of the lumbar spine as described above. Decreased size of the disc protrusion at L4-L5 with reduced crowding of the right L5 nerve roots. No evidence for new nerve root impingement. Assessment & Plan Assessment & Plan (1) Vertebrogenic low back pain: Code(s): M54.51 - Vertebrogenic low back pain Category: Medical (2) Chronic low back pain: Code(s): M54.50 - Low back pain, unspecified; G89.29 - Other chronic pain Category: Medical (3) Fibromyalgia: Code(s): M79.7 - Fibromyalgia Category: Medical Plan Patient reports significant pain relief following the procedure with partial improvement in her daily functioning, mobility, sleep and social interactions. Referral placed to physical therapy for ongoing rehabilitation s/p Intracept/BVN ablation. Patient encouraged daily physical activity and walking. Scripts provided for extended release Tylenol and Theraworx. Patient is aware not to exceed 3-4 g/day of acetaminophen or use more than one product containing acetaminophen at a time. All questions answered and the patient agreed with the treatment plan. Follow up after PT with Dr. De La Cruz and sooner as needed. Orders: Orders PT Evaluation and Treatment Today G89.29 - Other chronic pain, M54.50 - Low back pain, unspecified, M54.51 - Vertebrogenic low back pain Medications: New acetaminophen ER 1,300 mg (2 x 650 mg) PO Q12H 30 days 120 tabs 3RF pain G89.29 - Other chronic pain, M54.50 - Low back pain, unspecified, M54.51 - Vertebrogenic low back pain lidocaine HCl 4% (Theraworx Pain Relief) 1 ea topical TID 30 days 74 mL 1RF pain G89.29 - Other chronic pain, M54.50 - Low back pain, unspecified, M54.51 - Vertebrogenic low back pain, M79.7 - Fibromyalgia Discontinued oxycodone-acetaminophen 5-325 mg Partial Fill upon patient request. Discontinued Reason: Patient Completed Course 1 tab PO Q6H PRN 16 tabs 0RF pain Coding Level of Care Code Est Pt Level 4 (39476) Complex EM visit Add On G2211 Diagnoses Vertebrogenic low back pain M54.51 Chronic low back pain M54.50; G89.29 Fibromyalgia M79.7
[2024-06-19 10:51] VITALS: BP 118/72; PULSE 85; O2SAT 97; BMI 33.8
== END 2024-06-19 11:05 | disposition home or self-care (01) ==
PROVIDERS: PCP Nurse Practitioner Family; Visit Provider Nurse Practitioner Family
DX: M54.51 Vertebrogenic low back pain (principal); M54.50 Low back pain, unspecified; G89.29 Other chronic pain; M79.7 Fibromyalgia
CPT/HCPCS: 99214; G2211

== ENCOUNTER → 2024-06-19 10:40 | Outpatient (BNVA) | payer MEDICARE, MEDICAID, SELFPAY | PROVIDERS: PCP Nurse Practitioner Family; Visit Provider Nurse Practitioner Family | DX: M79.7 Fibromyalgia (principal); G35 Multiple sclerosis; M54.50 Low back pain, unspecified; M54.51 Vertebrogenic low back pain; G89.29 Other chronic pain | CPT/HCPCS: 99212 ==

== ENCOUNTER 2024-08-08 10:58 | Outpatient (RCR) | payer MEDICARE, MEDICAID, SELFPAY ==
--- NOTE | 2024-07-17 15:25 | MHC.PT.EP ---
[facility] [place] [facility] [place] [facility] [place] [facility] [address] Corrie [place] [address] [phone] F: [phone] F: [phone] F: [phone] F: [phone] Physical Therapy Plan of Care Date of Evaluation: 07/17/24 Date of Surgery: 05/12/24 Diagnosis: VERTEBROGENIC LBP S/P L3,L4.L5.S1 BVN (INTRACEPT 05/12/24) Assessment: 48 yo female who is ref to PT w h/o L3,L4,L5, and S1 BVN on 05/12/24 to assist w her long h/o LBP. 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 Her pain is in her Lt LS area. Skilled PT indicated to address muscular imbalances including hip/core weakness, lumbar paraspinal and iliopsoas tightness, lumbopelvic asymm creating a LLD, improve LE flexibility to normalize gait and squat mechanics, teach her back protection getting in/out of bed to reduce strain on lumbar spine, and improve her overall pain to promote QOL and functional mobility. Pt in agreement with POC and is motivated to participate. [ End ] Frequency and Duration: The patient will be seen 2 x WK x 4 WKS Short Term Goals: *INITIATE HEP TO IMPROVE LE PROPRIOCEPTION/ LUMBOPELVIC STABILITY *Pt'S LB PAIN DECR TO 2-3/10 *INCR FLEXIB IN PSOAS/HIP IR/ CALF MM *IMPROVE FUNCT SQUAT MECHANICS INCR ACTIV OF QUADS/ GLUTES Enzyme Chemist Goals: *Pt WILL IMPROVE LUMBOPELVIC/ PROXIMAL LEs STRENGTH TO AT LEAST 5-/5 *Pt INDEP W PROGRESSIVE HEP AND SELF-SX MGMT TECHN (W ASSIST, SUPV FROM EITHER PLATER PRINTED CIRCUIT BOARD PANELS) *Pt RESUME REG ADLs / FITNESS WALKING , EVIDENT W IMPROVED OSWESTRY SCORE (AT EVAL 19/50 ) Treatment Plan: Modalities to reduce pain, spasms and effusion. Manual therapy to restore motion and function. Therapeutic exercise to improve strength and flexibility. Neuromuscular re-education for posture and balance. Therapeutic activities to return to functional activities of daily living. Electronically signed by: KATHIE HOYT PT Please sign and return to therapist. Thank you for your referral.
--- NOTE | 2024-09-21 13:29 | MHC.PT.DC ---
[facility] [place] [facility] [place] [facility] [place] [facility] [address] Corrie Easton [address] [phone] F: [phone] F: [phone] F: [phone] F: [phone] Physical Therapy Discharge Report Diagnosis: VERTEBROGENIC LBP S/P L3,L4.L5.S1 BVN (INTRACEPT 05/12/24) Date of Surgery: 05/12/24 Date of Evaluation: 07/17/24 Date of Discharge: 09/21/24 Treatments to Date: 5 Cancellations to Date: 4 No Shows to Date: 0 Discharge Status: Improved Function Patient Elected to Stop Visit Non-compliance Discharge Summary: DORITA WAS RESPONDING WELL TO PT INTERVENTION, ADDRESSING POSTURE, BODY MECH, AND CORE ENGAGEMENT TECHN TO REDUCE STRESS ON HER LS REGION. SHE HAS A PROGRESSIVE HEP AND AT HER LAST ATTENDED PT SSESSION, SHE DISPLAYED DECENT TECHN AND SELF-PACING. THE Pt CANC HER LAST FEW PT APPTS, AND, THEREFORE, A FORMAL REASSESSMENT WAS NOT PERFORMED. SHE IS DISCHARGED THIS DATE PER PT DEPT ATTENDANCE POLICY. Electronically signed by: KATHIE HOYT,PT Please sign and return to therapist. Thank you for your referral.
== END 2024-09-21 13:38 | disposition home or self-care (01) ==
LOC: HO.PT 10:58
PROVIDERS: PCP Nurse Practitioner Family; Visit Provider Nurse Practitioner Family
DX: M54.51 Vertebrogenic low back pain (principal); M54.50 Low back pain, unspecified; G89.29 Other chronic pain
CPT/HCPCS: 97110; 97162

== ENCOUNTER 2025-07-14 12:38 | Emergency (ER) | payer OTHER, SELFPAY ==
--- OUTSIDE RECORDS SUMMARY | 2024-06-26 09:47 | XMS_ITS | Encounter Summary ---
Demographics Address [address] [place] [address] Home Phone Mobile Phone Email Address Preferred Language en Marital Status Unknown Taoism Affiliation Unknown Race White Ethnic Group Not or Lati no Author Organization [facility] [place] [address] Support Name Relationship Address Phone iTp Pos Domestic partner [address] [place] [address] [place] [address] Care Team Providers Care Lead Pressman [employer] Name Role Phone Adeola Zimmer MD Primary Care Provider [phone] Encounter Details Date Type Department Care Team (Late st Contact Info) Description 06/26/2024 9:47 AM EDT Hospital Encounter TH HISTORIC ENCOUNTERS EASTERN CONVERSION ONLY Social History Tobacco Use Types Packs/Day Years Used Date Smoking Tobacco: Every Day Cigarettes Smokeless Tobacco: Never Alcohol Use Standard Drinks/Week Comments Never 0 (1 standard drink = 0.6 oz pur e alcohol) Comments Unknown Sex and Gender Information Value Date Recorded Sex Assigned at Not on file Legal Sex Female 8:04 PM EST Gender Identity Not on file Sexual Orientation Not on file documented as of this encounter Last Filed Vital Signs Vital Sign Reading Time Taken Comments Blood Pressure - - Pulse - - Temperature - - Respiratory Rate - - Oxygen Saturation - - Inhaled Oxygen Concentration - - Weight 100 kg (220 lb 9.6 oz) 03/03/2024 1:52 PM EDT Height 170.2 cm (5' 7 ) 03/03/2024 1:52 PM EDT Body Mass Index 34.55 03/03/2024 1:52 PM EDT documented in this encounter Functional Status * Calculated C-SSRS Risk Score (Lifetime/Recent) Answer Date of Assessment Author No Risk Indicated 05/26/2025 2:41 PM EDT Mica Phan, RN * [place] Suicide Severity Rating Scale (Screener/Recent Self-Report) Question Answer Date of Assessment Author 1. Wish to be (Past 1 Month) No 025 2:41 PM EDT Mica Phan, RN 2. Non-Specific Active Suici dania Thoughts (Past 1 Month) No 05/26/2025 2:41 PM EDT Kemal Phan RN 6. Suicidal Behavior (Lifetime) No 2:41 PM EDT Mica Phan, RN documented as of this encounter Plan of Treatment Upcoming Encounters Date Type Department Care Team (Late st Contact Info) Description 08/07/2025 8:00 AM EST Appointment [facility] - [place] [address] [place] [address] 08/07/2025 8:00 AM EST Office Visit [facility] [address] [place] [address] Mary Steele, SNEHA [address] [place] [address] documented as of this encounter Visit Diagnoses Not on filedocumented in this encounter Additional Health Concerns Infection Onset Date Last Indicated Resolved Time Respiratory Rule-Out 05/26/2025 05/26/2025 025 9:35 PM EDT COVID-19 Rule-Out 05/26/2025 05/26/2025 05/26/2025 9:35 PM EDT documented as of this encounter Care Teams Lead Pressman [employer] Relationship Specialty Start Date End Date Adeola Zimmer MD PCP - General 01/14/23 10/03/24 documented as of this encounter
--- OUTSIDE RECORDS SUMMARY | 2024-06-29 09:46 | XMS_ITS | Encounter Summary ---
Demographics Address [address] [place] [address] Home Phone Mobile Phone Email Address Preferred Language en Marital Status Unknown Latter Day Affiliation Unknown Race White Ethnic Group Not or Lati no Author Organization [facility] Address [address] [place] [address] Support Name Relationship Address Phone Tip Pos Domestic partner [address] [place] [address] Care Team Providers Care Automobile Service Station Mechanic Name Role Phone Adeola Zimmer MD Primary Care Provider [phone] Encounter Details Date Type Department Care Team (Late st Contact Info) Description 06/29/2024 9:46 AM EDT Hospital Encounter TH HISTORIC ENCOUNTERS EASTERN CONVERSION ONLY Mary Steele, SNEHA [address] [place] [address] Social History Tobacco Use Types Packs/Day Years [...] Author No Risk Indicated 05/26/2025 2:41 PM Mica De La Rosa RN * [place] Suicide Severity Rating Scale (Screener/Recent Self-Report) Question Answer Date of Assessment Author 1. Wish to be (Past 1 Month) No 025 2:41 PM Mica De La Rosa RN 2. Non-Specific Active Suici dania Thoughts (Past 1 Month) No 05/26/2025 2:41 PM EMMAUNELT Kemal Phan RN 6. Suicidal Behavior (Lifetime) No 5 2:41 PM EDT Mica Phan RN documented as of this encounter Progress Notes * SNEHA Orosco - 06/29/2024 10:00 AM EDT HPI: Lindsay Saavedra is a 48 y.o. year old female referred to our center by Adeola Zimmer MD for evaluation and management on ocrevus Disease Summary Date of onset/Initial symptom presentation: Date of diagnosis of MS: Disease course at onset: RRMS Current disease course: RRMS Last MS exacerbation: Previous disease therapies(reason for switch): copaxone (breakthrough disease ), DMF Current disease therapy: Ocrevus (06/2023) Most recent MRI Brain:10/10/23: stable T2 hyperintensity Most recent MRI Cervical spine: Stable demyelinating lesions throughout the cervical spine. No newlesions or evidence of active demyelination. New right foraminal protrusion at C3-4 resulting in moderate right foraminal stenosis and contacting the exiting right C4 nerve root. Most recent MRI Thoracic spine: 2017 T2 lesions at the level of T2 and T3 T10-T11 CSF: Done we will obtain records JCV serology result and date: MS mimickers: 03/10/2023 WBC 15.8 Interval history Patient returns for follow-up visit.. She continues Ocrevus for disease modifying therapy and next infusion is scheduled for 12/25/2024. She denies new neurological symptoms/symptoms suggestive of demyelinating event since she was last seen in the office. Legs have been sore. She is going to PT for lower back pain- had Intercore procedure 1 month ago which went well. Denies changes in bowel/bladder symptoms. Last visit history reviewed below: She hurt her left knee about 2 weeks ago and recently saw orthopedic surgeon and had MRI. She has afollow-up visit with him later today. She denies recent illness/infection. Neurologic Exam: There were no vitals taken for this visit. MS: AOx3 CN: perrla, V1-3 intact to LT, face symmetric, bilateral SCM/trapezius 5/5, tongue/uvula/palate midline Motor: 4/5 LLE Sensation: Intact to light touch, temperature, and vibration in all extremities Reflexes: 2+ in bilateral biceps and patellae, toes downgoing bilaterally Cerebellar: FNF intact bilaterally, decreased left hand and foot tapping, SLOW HAYLEY intact Lt leg, slight difficulty tandem gait , romberg negative Gait: Dragging left lower extremity slightly 25 foot timed walk: Not performed today A/P: Lindsay Saavedra is a 48 y.o. year old female with relapsing MS treated with Ocrevus for diseasemodifying therapy. A. Disease modifying therapy plan: -continue Ocrevus per [facility] protocol -MRI brain and cervical spine will be obtained on an annual basis to ensure radiologic stability (due September 2024). B. Symptomatic management plan: Spasticity: Continue baclofen to 10 mg 3 times a day Bipolar disorder: Continue with psychiatry Bladder symptoms: Follow-up regarding urology referral ordered previously Left lower extremity weakness/gait difficulty: Continue with PT/OT exercise program. Increase gabapentin to 400 mg tid. Migraine : Continue Ajovy Fatigue: Continue modafinil 100 mg go up to 200 mg as tolerated Follow-up in 4 months or sooner as needed. The patient and I discussed the clinical picture during today's appointment. Additional time was spent prior to the actual appointment reviewing records, lab values and imaging results and preparing documentation for today's visit. There was also time spent following the in person visit documenting, arranging for further diagnostic testing and follow-up appointments. The entire time spent in thisprocess was greater than 40 minutes. The majority of the actual jzls-qa-hqwc visit was spent counseling the patient with respect to the current neurological picture. Mary Steele PA-C documented in this encounter Plan of Treatment Upcoming Encounters Date Type Department Care Team (Late st Contact Info) Description 08/07/2025 8:00 AM EST Appointment [facility] [place] Outpatient [facility] - [address] [place] [phone] 08/07/2025 8:00 AM EST Office Visit [facility] [place] [facility] [address] [place] [phone] Mary Steele PA [address] [place] [address] documented as of this encounter Visit Diagnoses Not on filedocumented in this encounter Additional Health Concerns Infection Onset Date Last Indicated Resolved Time Respiratory Rule-Out 05/26/2025 05/26/2025 025 9:35 PM EDT COVID-19 Rule-Out 05/26/2025 05/26/2025 05/26/2025 9:35 PM EDT documented as of this encounter Care Teams Automobile Service Station Mechanic Relationship Specialty Start Date End Date Adeola Zimmer MD PCP - General 01/14/23 10/03/24 documented as of this encounter
--- OUTSIDE RECORDS SUMMARY | 2024-07-12 11:18 | XMS_ITS | Encounter Summary ---
Demographics Address [address] [place] [address] Home Phone Mobile Phone Email Address Preferred Language en Marital Status Unknown Advent Affiliation Unknown Race White Ethnic Group Not or Lati no Author Organization [facility] Address [address] [place] [address] Support Name Relationship Address Phone Tip Pos Domestic partner [address] [place] [address] Care Team Providers Care Medical Staff Assistant Name Role Phone Adeola Zimmer MD Primary Care Provider [phone] Encounter Details Date Type Department Care Team (Late st Contact Info) Description 07/12/2024 11:18 AM EDT Hospital Encounter TH HISTORIC ENCOUNTERS EASTERN CONVERSION ONLY Mary Steele, SNEHA [address] [place] [address] Social History Tobacco Use Types Packs/Day Years [...] PM Mica De La Rosa RN * [place] Suicide Severity Rating Scale (Screener/Recent Self-Report) Question Answer Date of Assessment Author 1. Wish to be (Past 1 Month) No 025 2:41 PM Mica De La Rosa RN 2. Non-Specific Active Suici dania Thoughts (Past 1 Month) No 05/26/2025 2:41 PM Kemal De La Rosa RN 6. Suicidal Behavior (Lifetime) No 5 2:41 PM EDT Mica Phan RN documented as of this encounter Progress Notes * SNEHA Orosco - 07/12/2024 11:30 AM EDT HPI: Lindsay Saavedra is a [...] WBC 15.8 Interval history Patient returns for urgent visit. She continues Ocrevus for disease modifying therapy and next infusion is scheduled for 12/25/2024. She denies symptoms suggestive of demyelinating event since she was last seen in the office. Has been experiencing left lower extremity spasms/cramping from her knee down intermittently, last about 30 minutes at a time. This has been occurring at nighttime for the past 3 weeks. This has beenbothering her significantly and she is scheduled visit to discuss potential symptomatic treatment. She denies changes with balance/gait, bowel/bladder function. Last visit history reviewed: She denies new neurological symptoms/symptoms suggestive of demyelinating event since she was last seen in the office. Legs have been sore. She is going to PT for lower back pain- had Intercore procedure 1 month ago which went well. Denies changes in bowel/bladder symptoms. Neurologic Exam: BP 125/85 (BP Location: Left arm, Patient Position: Sitting) Pulse 102 MS: AOx3 CN: perrla, V1-3 intact to [...] lower extremity slightly 25 foot timed walk: 8.4, 8.0 seconds A/P: Lindsay Saavedra is a 48 y.o. year old female with relapsing MS treated with Ocrevus for diseasemodifying therapy presenting today to discuss potential treatment for lower extremity cramping. Sheis currently taking baclofen and we have room to increase dose- she agrees to trial of 15 mg 3 times daily and this can be increased further to 20 mg 3 times daily if needed. We reviewed potential adverse effects and she agrees to contact the office with any concerns. A. Disease modifying therapy plan: -continue Ocrevus per [facility] protocol -MRI brain and cervical spine will be obtained on an annual basis to ensure radiologic stability (due September 2024). B. Symptomatic management plan: Spasticity: Increase baclofen to 15 mg 3 times a day Bipolar disorder: [...] time spent in thisprocess was greater than 30 minutes. The majority of the actual lusg-tx-jnxd visit was spent counseling the patient with respect to the current neurological picture. Mary Steele PA-C documented in this encounter Plan of Treatment Upcoming Encounters Date Type Department Care Team (Late st Contact Info) Description 08/07/2025 8:00 AM EST Appointment [facility] [place] Outpatient Re[facility] - [place] [address] [place] [phone] 08/07/2025 8:00 AM EST Office Visit [facility] [place] [address] [facility] [address] [place] [address] Mary Steele PA [address] [place] [address] documented as of this encounter Visit Diagnoses Not on filedocumented in this encounter Additional Health Concerns Infection Onset Date Last Indicated Resolved Time Respiratory Rule-Out 05/26/2025 05/26/2025 025 9:35 PM EDT COVID-19 Rule-Out 05/26/2025 05/26/2025 05/26/2025 9:35 PM EDT documented as of this encounter Care Teams Medical Staff Assistant Relationship Specialty Start Date End Date Adeola Zimmer MD PCP - General 01/14/23 10/03/24 documented as of this encounter
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
[2025-07-14 12:50] VITALS: BP 113/65; PULSE 96; RESP 16; TEMP 36.3; O2SAT 98; BMI 27.9
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
--- OUTSIDE RECORDS SUMMARY | 2025-07-14 13:35 | XMS_ITS | Encounter Summary ---
Author Organization [facility] Address [address] [facility] [address] [place] [id number] Phone Care Team Providers Care Toe Sewer Name Role Phone Mary Grace Ordonez NP Primary Care Provider [phone] Encounter Details Date Type Department Care Team (Late st Contact Info) Description 03/13/2025 Procedure Pass OR Admitting Dept - Virtual Department [address] [place] [address] Social History Tobacco Use Types Packs/Day Years Used Date Smoking Tobacco: Every Day Cigarettes Smokeless Tobacco: Never Comments:Pack a day Alcohol Use Standard Drinks/Week Comments Never 0 (1 standard drink = 0.6 oz pur e alcohol) Education Answer Date Recorded Are you interested in more education? Not on davion e 01/15/2023 Are you concerned about learning? Not on file 01/15/2023 No 01/15/2023 No 01/15/2023 Digital Access Answer Date Recorded No 02/15/2023 No 02/15/2023 Reliable internet access at home? Not on file 02/15/2023 Device with a working camera? Not on file Intimate Partner Violence Answer Date R ecorded Are you denied basic needs s uch as food, clothing, or medical care? No 01/01/2025 In the past 12 months have y ou been in a relationship with a person who hurts, threatens, or tries to control you? No 01/01/2025 Are you denied basic needs s uch as food, clothing, or medical care? No 01/01/2025 In the past 12 months have y ou been in a relationship with a person who hurts, threatens, or tries to control you? No 01/01/2025 Comments No Sex and Gender Information Value Date Recorded Sex Assigned at Female 05/29/2020 2:17 PM EDT Legal Sex Female 9:29 PM EDT Gender Identity Female 05/29/2020 2:17 PM EDT Sexual Orientation Not on file documented as of this encounter Plan of Treatment Not on file documented as of this encounter Visit Diagnoses Not on filedocumented in this encounter Care Teams Toe Sewer Relationship Specialty Start Date End Date Mary Grace Ordonez NP [address] [place] [id number] PCP - General 04/20/22 documented as of this encounter Additional Source Comments The information contained in this document represents components of the legal health record. It is not the complete legal health record.[facility]
--- OUTSIDE RECORDS SUMMARY | 2025-07-14 13:35 | XMS_ITS | Clinical Summary ---
Author Organization [facility] Address [address] [facility] [address] [place] [address] Phone Care Team Providers Care Director Ambulatory Name Role Phone Mary Grace Ordonez NP Primary Care Provider [phone] Allergies Active Allergy Reactions Criticality Noted Date Comments Adhes. Jyto-Arcf-Ywjijvptkudr Unknown Low 2019 Lamotrigine Unknown Low 05/29/2020 Naproxen Unknown Low 05/29/2020 Omeprazole Rash Low 10/10/2024 Temazepam Unknown Low 05/29/2020 Medications albuterol 90 mcg/actuation inhaler 2 puffs. Active amitriptyline (ELAVIL) 10 MG tablet 10 mg. Active baclofen (LIORESAL) 10 MG tablet 20 mg. 07/12/20 24 Active VRAYLAR 6 mg capsule Take by mouth daily. Active clonazePAM (KLONOPIN) 0.5 MG tablet 0.5 mg. Active desmopressin (DDAVP) 0.2 MG tablet take 1 tablet by mouth everyday at bedtime 10/03/19 25 Active doxycycline hyclate (DORYX) 100 MG tablet Take 100 mg by mouth daily. Active DULoxetine (CYMBALTA) 60 MG capsule Take 1 tablet by mouth daily. 05/12/20 21 Active famotidine (PEPCID) 20 MG tablet 20 mg. Active fluticasone propionate (FLONASE) 50 mcg/actuation nasal spray 1 spray. 09/29/19 25 Active AJOVY AUTOINJECTOR 225 mg/1.5 mL AtIn INJECT 1ML SUBCUTANEOUSLY EVERY 27-30 DAYS Active gabapentin (NEURONTIN) 400 MG capsule Take 600 mg by mouth 3 (three) times a day. Active glucosamine 500 mg Cap Take 500 mg by mouth. 05/12/20 Active metFORMIN (GLUCOPHAGE) 500 MG tablet Take 1 tablet by mouth daily. Active ocrelizumab 30 mg/mL injection Inject into the vein. Every 6 months Active pantoprazole (PROTONIX) 20 MG tablet Take 1 tablet by mouth daily. 04/30/20 Active prazosin (MINIPRESS) 1 MG capsule Take 1 capsule by mouth nightly at bedtime. 02/03/20 Active prazosin (MINIPRESS) 5 MG capsule Take 1 capsule by mouth nightly at bedtime. Active rosuvastatin 10 mg CpSP Active topiramate (TOPAMAX) 100 MG tablet 200 mg. 05/12/20 Active GEMTESA 75 mg tablet Take 1 tablet by mouth daily. Active levothyroxine (SYNTHROID, LEVOTHROID) 75 MCG tablet Take 88 mcg by mouth every morning. Active traZODone (DESYREL) 100 MG tablet Take 100 mg by mouth nightly at bedtime. Active oxyCODONE 5 MG immediate release tablet Take 1 tablet (5 mg total) by mouth every 4 (four) hours as needed for pain (specific location in comments). Partial fill ok 12 tablet 03/13/20 Active Active Problems Problem Noted Date Diagnosed Date Abnormal uterine bleeding 03/15/2025 Overview (03/27/2025): Endometrial polyps removed hysteroscopically, Mirena IUD placed Multiple sclerosis 03/09/2025 Fibromyalgia 03/09/2025 Psychiatric disorder 03/09/2025 Anxiety 03/09/2025 Headache 03/09/2025 GERD (gastroesophageal reflux disease) Asthma 03/09/2025 Hypothyroidism 03/09/2025 Lower abdominal pain 12/13/2024 Resolved Problems Problem Noted Date Diagnosed Date Resolved Date Skin lesion 03/15/2025 03/27/2025 Overview (03/27/2025): Excised, benign acrochordons Endometrial polyp 12/13/2024 03/27/2025 Overview (12/13/2024): With heavy menses , plan hysteroscopy, polypectomy with Mirena IUD insertion Assessment & Plan (03/27/2025 8:18 PM EDT): Removed hysteroscopically, benign, Mirena IUD placed Assessment & Plan (02/07/2025 5:34 PM EDT): Persisting on repeat ultrasound, will proceed with hysteroscopy polypectomy and Mirena IUD insertion LLQ pain 10/10/2024 03/27/2025 Overview (10/10/2024): On both abdominal and bimanual pelvic exam, this is localized to the abdominal wall just to the left of midline above the pubic bone, there is no direct tenderness of the left adnexal area Assessment & Plan (10/10/2024 1:37 PM EST): Given the localization of this pain to the abdominal wall on exam, I think is not very likely that a laparoscopic either cystectomy or salpingo-oophorectomy is going to resolve her pain. We were able to schedule an ultrasound in 3 days, and I recommend doing that before pursuing the option of surgery. Cyst of left ovary 10/10/2024 Overview (10/10/2024): 2.6 x 2 x 2.7 cm with a 0.6 cm echogenic focus on ultrasound done in the ER for left-sided pain On exam, the left adnexal area is nontender, the tenderness is in the abdominal wall Assessment & Plan (03/27/2025 8:17 PM EDT): Laparoscopic LSO performed, benign teratoma Assessment & Plan (02/07/2025 5:34 PM EDT): Right cyst has resolved, this echogenic focus is persisting but not getting larger compared to ultrasound from September to now. I advised her again that I think is very unlikely that removing this is going to resolve her pain and I discouraged from having that as part of the upcoming surgery (D&C hysteroscopy planned for the polyp and bleeding) there are other reasons for pain such as a fibromyalgia. She is going to see her primary care doctor and encouraged her to talk to her primary care doctor about other causes. I gave her a copy of the ultrasound today so she can see that this nodule has not enlarged and I asked her to let the primary know that I think this is more musculoskeletal pain and not coming from the ovary Assessment & Plan (12/13/2024 5:36 PM EDT): Pain now right and left; cannot be certain that this is cause of pain, I recommend repeating the US, would not advise BSO for this pain F/u in office after the US before deciding on any laparoscopic surgery Assessment & Plan (10/10/2024 1:38 PM EST): Recommend scheduling an ultrasound this week if possible before deciding on any surgery for the indication of the pain. I advised I think the cyst is not likely to be a cause of pain given on exam the pain does not localize to the left adnexal area, but to the abdominal wall Family History Relation Status Comments Brother Alive Father Mother Sister Alive Social History Tobacco Use Types Packs/Day Years Used Date Smoking Tobacco: Every Day Cigarettes Smokeless Tobacco: Never Tobacco Cessation:Ready to Q uit: Not Asked; Counseling Given: Not Answered Comments:Pack a day Alcohol Use Standard Drinks/Week [...] PM EDT Sexual Orientation Not on file Last Filed Vital Signs Vital Sign Reading Time Taken Comments Blood Pressure 118/80 03/27/2025 11:04 AM EDT Pulse 73 03/13/2025 12:00 PM EDT Temperature 36 C (96.8 F) 03/13/2025 11:20 AM EDT Respiratory Rate 16 03/13/2025 12:50 PM EDT Oxygen Saturation 99% 03/13/2025 12:50 PM EDT Inhaled Oxygen Concentration - - Weight 83.3 kg (183 lb 9.6 oz) 03/27/2025 11:04 AM EDT Height 170.2 cm (5' 7.01 ) 03/27/2025 11:04 AM E DT Body Mass Index 28.75 03/27/2025 11:04 AM EDT Plan of Treatment Health Maintenance Due Date Last Done Comments Adult Td,Tdap Booster 1975 TSH LEVEL 1974 DEPRESSION SCREENING 1986 SMOKING Hx and SMOKELESS TOBACCO SCREENING 1987 HEPATITIS C SCREENING 1992 HIV ONE-TIME SCREENING (18-65 YEARS) 1992 MAMMOGRAM 2014 PNEUMOCOCCAL VACCINES (50+ years) (2 of 2 - PCV) 08/21/2016 08/21/2015 COLOGUARD 2019 COLONOSCOPY 2019 COLORECTAL CANCER SCREENING 2019 FIT TEST 2019 FOBT 2019 SIGMOIDOSCOPY 2019 VIRTUAL COLONOSCOPY 2019 LIPID PANEL 10/04/2022 10/04/2017 RSV VACCINE (1 - Risk 50-74 years 1-dose series) 2024 ZOSTER VACCINES (1 of 2) 2024 INFLUENZA VACCINE (#1) 2025 0, 06/09/2020, 06/22/2019, Additional history exists COVID-19 VACCINE (3 - 2024- season) 2025 12/19/2020, 11/28/2020 CREATININE LEVEL 01/01/2026 01/01/2025, 12/2024, 10/31/2023 SCREENING FOR DIABETES 01/02/2028 01/01/2025 PAP SMEAR 10/10/2029 10/10/2024 IUD 03/13/2033 03/13/2025 HEPATITIS A VACCINES Aged Out No long er eligible based on patient's age to complete this topic HIB VACCINES Aged Out No longer eligi ble based on patient's age to complete this topic MENINGOCOCCAL VACCINES (ACWY) Aged Out No longer eligible based on patient's age to complete this topic MENINGOCOCCAL VACCINES (B) Aged Out N o longer eligible based on patient's age to complete this topic Medical Devices Implanted Type Area Electronic Equipment Trades Worker Device Identifier Shelf Expiration Date Model / Serial / Lot Mesh Mesh Bladder Procedures Procedure Name Priority Date/Time Associated Diagnosis Comments BASIC METABOLIC PANEL STAT 01/01/2025 5:26 PM EDT PAP TEST Routine 10/10/2024 12:00 AM EST from Last 3 Months or Most Recently Relevant to Health Maintenance Results * Basic metabolic panel (01/01/2025 5:26 PM EDT) SODIUM 140 133 - 146 mmol/L [facility] CHLORIDE 107 96 - 108 mmol/L [facility] POTASSIUM 4.0 3.3 - 5.1 mmol/L [facility] CO2 25 21 - 35 mmol/L [facility] BUN 8 6 - 19 mg/dL [facility] CREATININE 1.00 0.5 - 1.5 mg/dL [facility] GLUCOSE 92 70 - 99 mg/dL [facility] CALCIUM 9.4 8.4 - 10.3 mg/dL [facility] EGFR 69 >59 mL/min/1.7 3m2 [facility] Comment:Estimated glomerular filtration rate calculated using the CKD-EPI refit equation. ANION GAP 12 10 - 20 mmol/L [facility] Blood 01/01/2025 5:26 PM EDT 01/01/2025 5:32 PM EDT Ama Calderón Kenzie [facility] BLOOD ORDERABLES Final Result [address] [id number] * Pap Test (10/10/2024 12:00 AM EST) Report [address] [id number] Photolettering Machine Operator: Adonis Guerra MD DIGITAL ASSET COORDINATOR Cytology Report FINAL DIAGNOSIS A. PAP SMEAR (THIN PREP) CE: SPECIMEN ADEQUACY: Satisfactory for evaluation; transformation zone present. INTERPRETATION: NEGATIVE FOR INTRAEPITHELIAL LESION OR MALIGNANCY. This specimen was analyzed by the automated ThinPrep Imaging System ([employer] and the selected clark were reviewed by a statistics tutor. Electronically Signed Out By: ELISEO Leavitt(ASCP) The Pap test is a screening test primarily for squamous cancers and precursors and has associated false-negative and false-positive results. New technologies such as liquid-based preparations may decrease but will not eliminate all false-negative results. Regular sampling and follow-up of unexplained clinical signs and symptoms are recommended to minimize false negative results. PROCEDURES/ADDENDA HPV Testing (Requested) Ordered Date: 10/11/2024 A. PAP SMEAR (THIN PREP) CE: High-risk HPV Panel w/ extended genotyping NEG HPV 16-NEG HPV 18-NEG HPV 45-NEG HPV 33/58-NEG HPV 31-NEG HPV 56/59/66-NEG HPV 51-NEG HPV 52-NEG HPV 35/39/68-NEG Performed by real-time polymerase chain reaction (PCR) at [facility], [address] [place] [address] using the FDA-approved BD Onclarity9 HPV Assay with extended genotyping. Uses of the assay in scenarios other than those approved by the FDA should be considered off-label use. The accuracy and precision of this test for all other off-label specimen sources has been verified in the Cytopathology Laboratory of the [facility] and has not been cleared or approved by the U.S. Food and Drug Administration. Clinical correlation is advised. The assay assesses the E6/E7 DNA target and utilizes human beta globin as an internal control. Cytology and HPV testing are screening assays and should not be used as the sole means of detecting cancer. False-positives and false-negatives can occur. CLINICAL HISTORY Date of Last Menstrual Period: 10-04-2024 Other Clinical Conditions: Screening Pap SPECIMEN SOURCE A: PAP SMEAR (THIN PREP) CE Patient Name: LINDSAY PICKARD : 1975 (Age: 48) Sex: F Institution: [facility] Location: [facility] Date of Collection: 10/10/2024 Date of Reported: 10/13/2024 15:31 Results to: Damari De La Rosa MD [facility] Final Diagnosis A. PAP SMEAR (THIN PREP) CE: SPECIMEN ADEQUACY: Satisfactory for evaluation; transformation zone present. INTERPRETATION: NEGATIVE FOR INTRAEPITHELIAL LESION OR MALIGNANCY. This specimen was analyzed by the automated ThinPrep Imaging System ([employer].) and the selected clark were reviewed by a statistics tutor. [facility] Results\Inter pretation A. PAP SMEAR (THIN PREP) CE: High-risk HPV Panel w/ extended genotyping NEG HPV 16-NEG HPV 18-NEG HPV 45-NEG HPV 33/58-NEG HPV 31-NEG HPV 56/59/66-NEG HPV 51-NEG HPV 52-NEG HPV 35/39/68-NEG Performed by real-time polymerase chain reaction (PCR) at [facility], [address] [place] [address] using the FDA-approved BD Onclarity HPV Assay with extended genotyping. Uses of the assay in scenarios other than those approved by the FDA should be considered off-label use. The accuracy and precision of this test for all other off-label specimen sources has been verified in the Cytopathology Laboratory of the [facility] and has not been cleared or approved by the U.S. Food and Drug Administration. Clinical correlation is advised. The assay assesses the E6/E7 DNA target and utilizes human beta globin as an internal control. Cytology and HPV testing are screening assays and should not be used as the sole means of detecting cancer. False-positives and false-negatives can occur. [facility] Conversion Type (Conversion Source) 10/10/2024 10/11/2024 9:53 AM EST us Damari De La Rosa MD CYTOLOGY ORDERABLES Edited Resul t - Final [facility] [address] [place] [address] from Last 3 Months or Most Recently Relevant to Health Maintenance Insurance MEDICARE PART A & B [facility] MEDICARE PART A & B [place] [facility] B [facility] MEDIC[facility] PART A & [place] & [facility] Advance Directives For more information, please contact: [phone] (9AM - 5PM [facility], Wednesday-Wednesday) * Full Code (Latest Code Status on File) Date Activated Date Inactivated Comments 03/13/2025 9:02 AM Question Answer Comments Code Status Confirmed With: Patient Care Teams Director Ambulatory Relationship Specialty Start Date End Date Mary Grace Ordonez NP [address] [place], [place] [id number] PCP - General 04/20/22 Additional Source Comments The information contained in this document represents components of the legal health record. It is not the complete legal health record.[facility]
--- OUTSIDE RECORDS SUMMARY | 2025-07-14 13:35 | XMS_ITS | Encounter Summary ---
Author Organization [facility] Address [address] [facility] [address] [place] [address] Phone Care Team Providers Care Special Technical Operations Officer Name Role Phone Mary Grace Ordonez NP Primary Care Provider [phone] Encounter Details Date Type Department Care Team (Late st Contact Info) Description 09/23/2024 Procedure Pass [facility], Ct Scan - [address] [address] Social History Tobacco Use Types Packs/Day Years Used Date Smoking Tobacco: Every Day Alcohol Use Standard Drinks/Week Comments Never 0 [...] as food, clothing, or medical care? No 09/23/2024 In the past 12 months have y ou been in a relationship with a person who hurts, threatens, or tries to control you? No 09/23/2024 Are you denied basic needs s uch as food, clothing, or medical care? No 09/23/2024 In the past 12 months have y ou been in a relationship with a person who hurts, threatens, or tries to control you? No 09/23/2024 Comments Unknown Sex and Gender Information Value Date Recorded Sex Assigned at Female 05/29/2020 2:17 PM EDT Legal Sex Female 9:29 PM EDT Gender Identity Female 05/29/2020 2:17 PM EDT Sexual Orientation Not on file documented as of this encounter Functional Status * Calculated C-SSRS Risk Score (Lifetime/Recent) Answer Date of Assessment Author No Risk Indicated 09/23/2024 3:02 PM Olinda Ardon RN * [place] Suicide Severity Rating Scale (Screener/Recent Self-Report) Question Answer Date of Assessment Author 1. Wish to be (Past 1 Month) No 09/23/2024 3:02 PM Olinda Ardon RN 2. Non-Specific Active Suici dania Thoughts (Past 1 Month) No 09/23/2024 3:02 PM Jeff Ardon RN 6. Suicidal Behavior (Lifetime) No 3:02 PM Olinda Ardon RN documented as of this encounter Plan of Treatment Not on file documented as of this encounter Visit Diagnoses Not on filedocumented in this encounter Care Teams Special Technical Operations Officer Relationship Specialty Start Date End Date Mary Grace Ordonez NP [address] [place] [address] PCP - General 04/20/22 documented as of this encounter Additional Source Comments The information contained in this document represents components of the legal health record. It is not the complete legal health record.[facility]
--- OUTSIDE RECORDS SUMMARY | 2025-07-14 13:35 | XMS_ITS ---
Author Name [facility] Organization Unknown History of Medication Use Medication Directions Dispensed Refills Start Date End Date Status modafinil (PROVIGIL) 200 MG tablet 1 po bid 4 active modafinil (Provigil) 100 MG tablet 1 po bid 4 active baclofen (LIORESAL) 10 MG tablet 1 po tid 4 active methylPREDNISolone sodium succinate (SOLU-Medrol) injection 500 mg 500 mg, Intravenous, Once, On Wed06/26/24 at 1130, For 1 dose 4 completed ocrelizumab (OCREVUS) 600 mg in sodium chloride (NS) 0.9 % 500 mL IVPB 600 mg, Intravenous, Once, On Wed06/26/24 at 1115, For 1 doseMust use in-line 0.22 micron filter. - Infusion Rate for first full 600 mg dose or reaction with previous infusion: Start at 40 mL/hr. Increase by 40 mL/hr every 30 minutes. Maximum rate: 200 mL/hr. Duration: 3.5 hours or longer. - Infus 4 completed gabapentin (NEURONTIN) 300 MG capsule TAKE 1 CAPSULE BY MOUTH THREE TIMES A DAY 4 aborted methylPREDNISolone sodium succinate (SOLU-Medrol) 1,000 mg in sodium chloride (NS) 0.9 % 100 mL IVPB 1,000 mg, Intravenous, Administer over 30 Minutes, Once, On Wed11/29/23 at 1245, For 1 dose 4 completed meloxicam (MOBIC) 15 MG tablet TAKE 1 TABLET BY MOUTH DAILY FOR PAIN 4 active sodium chloride 0.9% bolus (NS) 500 mL 500 mL, Intravenous, at 500 mL/hr, Once as needed, prn signs and symptoms of hypotension, Starting on Wed06/29/23 at 0845For mild to moderate infusion reactions. Run 500 mL IV to gravity. 3 active diphenhydrAMINE (BENADRYL) injection 50 mg 50 mg, Intravenous, Once, On Wed06/26/24 at 1115, For 1 doseGive 30 minutes prior to ocrelizumab. IV push over 2-3 minutes. See PO diphenhydramine order. Please give PO or IV. Common Side Effects: Drowsiness, stomach upset, confusion, dry mouth. Administer undiluted. Maximum rate 25 mg/min. 3 024 completed sodium chloride 0.9% (NS) infusion 500 mL, Intravenous, Once, On Wed06/26/24 at 1115, For 1 doseAdminister at 999 mL/hr. 3 024 completed acetaminophen (TYLENOL) tablet 975 mg 975 mg, Oral, Once, On Wed12/14/23 at 0845, For 1 doseGive 30 minutes prior to ocrelizumab. 3 024 completed ocrelizumab (OCREVUS) 300 mg in sodium chloride (NS) 0.9 % 250 mL IVPB 300 mg, Intravenous, Once, On Wed06/29/23 at 0845, For 1 doseMust use in-line 0.22 micron filter. Administer though a dedicated IV line. First 2 infusions (300 mg dose): Begin infusion at 30 mL/hr. Increase by 30 mL/hr every 30 minutes to a maximum rate of 180 ml/hr. Infusion duration: 2.5 hours o 3 023 completed methylPREDNISolone sodium succinate (SOLU-Medrol) injection 125 mg 125 mg, Intravenous, Once, On Wed06/15/23 at 0845, For 1 doseGive 30 minutes prior to ocrelizumab. Administer over 2-3 minutes 3 023 completed ergocalciferol (VITAMIN D2) capsule 05556 units Take 1 capsule (50,000 Units total) by mouth once a week. 3 active Ajovy 225 MG/1.5ML SOSY injection INJECT 1 AUTOINJECTOR SUBCUTANEOUS ONCE PER 27-30 DAYS 3 active doxycycline (VIBRA-TABS) 100 MG tablet Take 1 tablet (100 mg total) by mouth daily. 3 active topiramate (TOPAMAX) 100 MG tablet TAKE 2 TABLETS IN THE MORNING AND 2 TABLETS BEFORE BED 3 active Dimethyl Fumarate 240 MG CPDR 3 024 aborted Vraylar 4.5 MG CAPS capsule Take 1 capsule (4.5 mg total) by mouth daily. 3 active prazosin (MINIPRESS) 1 MG capsule Take 1 capsule (1 mg total) by mouth every night at bedtime. 3 active lithium (LITHOBID) 300 MG CR tablet Take 1 tablet (300 mg total) by mouth 2 (two) times a day. 3 active metFORMIN (GLUCOPHAGE) tablet 500 mg Take 1 tablet (500 mg total) by mouth daily. 3 active amitriptyline (ELAVIL) 10 MG tablet TAKE 2 TABLETS BY MOUTH AT BEDTIME DIRECTED 3 active naratriptan (AMERGE) 2.5 MG tablet TAKE 1 TABLET. CAN REPEAT IN 2 HOURS IF SYMPTOMS PERSIST/RETURN. MAX 5 MG/DOSE 10 MG PER 24 HOURS 3 active pantoprazole (PROTONIX) 20 MG tablet Take by mouth. 2 active famotidine (PEPCID) 20 MG tablet Take by mouth. 2 active tiZANidine (ZANAFLEX) 4 MG capsule Take 1 capsule (4 mg total) by mouth. 1 active prazosin (MINIPRESS) 5 MG capsule Take 1 capsule (5 mg total) by mouth. 0 active pregabalin (LYRICA) capsule 150 mg Take 1 capsule (150 mg total) by mouth. 9 024 aborted clonazePAM (KlonoPIN) 0.5 MG tablet active DULoxetine (CYMBALTA) DR capsule 60 mg Take 1 capsule (60 mg total) by mouth daily. active hydrOXYzine (VISTARIL) 25 MG capsule active levothyroxine (SYNTHROID) tablet 88 mcg Take 1 tablet (88 mcg total) by mouth every morning on an empty stomach. active ocrelizumab (Ocrevus) 300 MG/10ML SOLN Inject into the vein. active prochlorperazine (COMPAZINE) 10 MG tablet Take 1 tablet (10 mg total) by mouth every 6 (six) hours as needed. active Rosuvastatin Calcium 10 MG CPSP active Allergies Allergen Reaction Severity Comment Documented Date Source Statu s ADHESIVE TAPE 11/25/2023 [facility] active TEMAZEPAM CHEST PAINS 01/28/2023 [facility] active IBUPROFEN SENSITIVITY [facility] LAMOTRIGINE RASH [facility] NAPROXEN PALPITATIONS [facility] Problems Problem Status Onset Date Problem Type Date of Resoluti on Source Multiple sclerosis active 2023-06-04 ProblemAct [facility] Care Team Organization Name Specialty Phone Email Start Date End Da rodriguez [facility] 05/09/2025
--- OUTSIDE RECORDS SUMMARY | 2025-07-14 13:35 | XMS_ITS | Clinical Summary ---
Author Organization [facility] Address [address] [place] [address] Care Team Providers Care Math And Physics Instructor Name Role Phone Adeola Zimmer MD Primary Care Provider [phone] Allergies Active Allergy Reactions Criticality Noted Date Comments Adhesive Tape 11/25/2023 Ibuprofen 01/28/2023 SENSITIVITY Lamotrigine Rash Low 01/28/2023 Naproxen Palpitations Low 01/28/2023 Temazepam 01/28/2023 CHEST PAINS Medications Medication Sig Dispensed Refills Start Date End Date Status levothyroxine (SYNTHROID) tablet 88 mcg Take 1 tablet (88 mcg total) by mouth every morning on an empty stomach. 0 Active topiramate (TOPAMAX) 100 MG tablet TAKE 2 TABLETS IN THE MORNING AND 2 TABLETS BEFORE BED 0 01/08/2023 Active doxycycline (VIBRA-TABS) 100 MG tablet Take 1 tablet (100 mg total) by mouth daily. 0 01/20/2023 Active pantoprazole (PROTONIX) 20 MG tablet Take by mouth. 0 06/10/2022 Active Vraylar 4.5 MG CAPS capsule Take 1 capsule (4.5 mg total) by mouth daily. 0 01/04/2023 Active prazosin (MINIPRESS) 5 MG capsule Take 1 capsule (5 mg total) by mouth. 0 03/17/2020 Active prazosin (MINIPRESS) 1 MG capsule Take 1 capsule (1 mg total) by mouth every night at bedtime. 0 12/21/2022 Active famotidine (PEPCID) 20 MG tablet Take by mouth. 0 01/22/2022 Active amitriptyline (ELAVIL) 10 MG tablet TAKE 2 TABLETS BY MOUTH AT BEDTIME DIRECTED 0 11/13/2022 Active clonazePAM (KlonoPIN) 0.5 MG tablet 0 Active Rosuvastatin Calcium 10 MG CPSP 0 Active hydrOXYzine (VISTARIL) 25 MG capsule 0 Active Ajovy 225 MG/1.5ML SOSY injection INJECT 1 AUTOINJECTOR SUBCUTANEOUS ONCE PER 27-30 DAYS 0 01/25/2023 Active prochlorperazine (COMPAZINE) 10 MG tablet Take 1 tablet (10 mg total) by mouth every 6 (six) hours as needed. 0 Active DULoxetine (CYMBALTA) DR capsule 60 mg Take 1 capsule (60 mg total) by mouth daily. 0 Active ergocalciferol (VITAMIN D2) capsule 74459 units Take 1 capsule (50,000 Units total) by mouth once a week. 12 capsule 0 02/04/2023 Active ocrelizumab (Ocrevus) 300 MG/10ML SOLN Inject into the vein. 0 Active modafinil (PROVIGIL) 200 MG tablet 1 po bid 30 tablet 5 03/17/2024 Active gabapentin (NEURONTIN) 400 MG capsule 1 po tid 90 capsule 5 07/03/2024 Active baclofen (LIORESAL) 10 MG tablet 1 1/2 po in am, 1 1/2 po midday, and 2 po hs 180 tablet 5 07/12/2024 Active Active Problems Problem Noted Date Diagnosed Date Multiple sclerosis 06/04/2023 Social History Tobacco Use Types Packs/Day Years Used Date Smoking Tobacco: Every Day Cigarettes 0.5 Smokeless Tobacco: Never Tobacco Cessation:Ready to Q uit: Not Asked; Counseling Given: Not Answered Alcohol Use Standard Drinks/Week Comments Never 0 (1 standard drink = 0.6 oz pur e alcohol) Sex and Gender Information Value Date Recorded Sex Assigned at Female 01/14/2023 9:59 AM EDT Gender Identity Not on file Sexual Orientation Not on file Job Start Date Occupation Industry Not on file Not on file Not on file Last Filed Vital Signs Vital Sign Reading Time Taken Comments Blood Pressure 125/85 07/12/2024 4:29 PM EDT Pulse 102 07/12/2024 4:29 PM EDT Temperature 36.3 C (97.3 F) 06/26/2024 3:11 PM EDT Respiratory Rate 20 06/26/2024 3:11 PM EDT Oxygen Saturation 93% 06/26/2024 3:11 PM EDT Inhaled Oxygen Concentration - - Weight 100.1 kg (220 lb 9.6 oz) 03/03/2024 1:52 PM EDT Height 170.2 cm (5' 7 ) 03/03/2024 1:52 PM EDT Body Mass Index 34.55 03/03/2024 1:52 PM EDT Plan of Treatment Health Maintenance Due Date Last Done Comments Hepatitis B Vaccines (1 of 3 - 3-dose series) 1974 Hepatitis C Screening 1974 Depression Screening 1986 BMI Counseling 1992 Preventative Health Evaluation 1992 Tobacco Cessation Counseling 1992 DTap / Tdap / Td (1 - Tdap) 1993 Cervical Cancer Screening (Pap Smear) 1995 Pneumococcal Vaccine (2 of 2 - PCV) 08/21/2016 08/21/2015 Colon Cancer Screening (Colonoscopy) 2019 Breast Cancer Screening (Mammogram) 2024 Shingrix-Zoster Vaccine (1 o f 2) 2024 COVID-19 Vaccine (3 - 2024-2 6 season) 2025 12/19/2020, 11/28/2020 Influenza Vaccine (#1) 2025 08/21/2015 RSV Ped < 20 months Aged Out No longe r eligible based on patient's age to complete this topic Care Teams Math And Physics Instructor Relationship Specialty Start Date End Date Adeola Zimmer MD [address] [place] [address] PCP - General Family Medicine 01/14/23
--- OUTSIDE RECORDS SUMMARY | 2025-07-14 13:36 | XMS_ITS | Encounter Summary ---
Author Organization [facility] Address [address] [facility] [address] [place] [id number] Phone Care Team Providers Care Distribution System Operator Name Role Phone Mary Grace Ordonez NP Primary Care Provider [phone] Encounter Details Date Type Department Care Team (Late st Contact Info) Description 01/01/2025 Procedure Pass [facility], Ct Scan - [address] [address] Social History Tobacco Use Types Packs/Day Years [...] Date of Assessment Author No Risk Indicated 01/01/2025 5:00 PM EDT Anne Marie Castellanos RN * [place] Suicide Severity Rating Scale (Screener/Recent Self-Report) Question Answer Date of Assessment Author 1. Wish to be (Past 1 Month) No 025 5:00 PM EDT Anne Marie Castellanos RN 2. Non-Specific Active Suici dania Thoughts (Past 1 Month) No 01/01/2025 5:00 PM EDT Viki Castellanos RN 6. Suicidal Behavior (Lifetime) No 5:00 PM EDT Anne Marie Castellanos RN documented as of this encounter Plan of Treatment Not on file documented as of this encounter Visit Diagnoses Not on filedocumented in this encounter Care Teams Distribution System Operator Relationship Specialty Start Date End Date Mary Grace Ordonez NP [address] [place] [address] PCP - General 04/20/22 documented as of this encounter Additional Source Comments The information contained in this document represents components of the legal health record. It is not the complete legal health record.[facility]
--- OUTSIDE RECORDS SUMMARY | 2025-07-14 13:36 | XMS_ITS | Clinical Summary ---
Demographics Address [address] [place] [address] Home Phone Mobile Phone Email Address Preferred Language en Marital Status Unknown Gnosticism Affiliation Unknown Race White Ethnic Group Not or Lati no Author Organization [address] [facility] Address [address] [place] [address] Phone Support Name Relationship Address Phone Tip Pos Domestic partner [address] [place] [address] Care Team Providers Care Manager Of Development Name Role Phone Adeola Zimmer MD Primary Care Provider [phone] Allergies Active Allergy Reactions Criticality Noted Date Comments Adhesive Tape-Silicones 11/25/2023 Lamotrigine Rash Low 01/28/2023 Naproxen Palpitations Low 01/28/2023 Temazepam Rash 01/28/2023 CHEST PAINS Medications albuterol HFA (PROAIR HFA ; PROVENTIL HFA ; VENTOLIN HFA) 90 mcg/actuation inhaler Inhale 2 puffs by mouth every 4 (four) hours if needed. 09/16/20 24 Active amitriptyline (ELAVIL) 10 mg tablet TAKE 2 TABLETS BY MOUTH AT BEDTIME DIRECTED 08/24/20 24 Active Vraylar 6 mg capsule Take 1 capsule (6 mg total) by mouth 1 (one) time each day. 10/02/19 25 Active clonazePAM (KlonoPIN) 0.5 mg disintegrating tablet Take by mouth at bedtime. 09/25/19 25 Active desmopressin (DDAVP) 0.2 mg tablet 10/29/19 25 Active doxycycline hyclate (VIBRA-TABS) 100 mg tablet 10/30/19 25 Active DULoxetine (CYMBALTA) [address] capsule Take 1 capsule (60 mg total) by mouth 1 (one) time each day. Active famotidine (PEPCID) 10 mg tablet Take by mouth at bedtime. 10/06/19 25 Active fluticasone propionate (FLONASE) 50 mcg/actuation nasal spray TAKE 1 SPRAY (INTRANASAL) DAILY FOR 10 DAYS ADMINISTER INTO EACH NOSTRIL 09/29/19 25 Active ibuprofen 200 mg capsule Take by mouth every 6 (six) hours if needed. 09/24/19 25 Active levothyroxine (SYNTHROID, LEVOTHROID) 75 mcg tablet Take 1 tablet (75 mcg total) by mouth 1 (one) time each day. 10/25/19 25 Active metFORMIN (GLUCOPHAGE) 500 mg tablet Take 1 tablet (500 mg total) by mouth 1 (one) time each day. 09/09/20 24 Active ocrelizumab (Ocrevus) 30 mg/mL solution injection Infuse into a venous catheter. Active pantoprazole (PROTONIX) 20 mg EC tablet Take 1 tablet (20 mg total) by mouth 1 (one) time each day. 10/20/19 25 Active prazosin (MINIPRESS) 1 mg capsule Take 1 capsule (1 mg total) by mouth at bedtime. 10/24/19 25 Active prochlorperazine (COMPAZINE) 10 mg tablet Take 1 tablet (10 mg total) by mouth every 6 hours as needed. Active rosuvastatin (CRESTOR) 10 mg tablet Take 1 tablet (10 mg total) by mouth 1 (one) time each day. 09/28/19 25 Active traZODone (DESYREL) 100 mg tablet TAKE 1 TABLET BY ORAL ROUTE PER AT BEDTIME NEEDED FOR INSOMNIA. 08/14/20 24 Active Gemtesa 75 mg tablet tablet Take 1 tablet (75 mg total) by mouth 1 (one) time each day. 10/25/19 25 Active topiramate (TOPAMAX) 100 mg tablet Take 1 tablet (100 mg total) by mouth 2 (two) times a day. 180 tablet 3 10/30/19 25 Active gabapentin (NEURONTIN) 400 mg capsule 1 po tid 90 capsule 5 01/09/20 25 Active baclofen (LIORESAL) 10 mg tablet TAKE 1.5 TABLETS BY MOUTH IN THE AM, 1.5 TABLETS BY MOUTH MIDDAY, AND 2 TABLETS BY MOUTH AT BEDTIME 150 each 5 03/06/20 25 Active baclofen (LIORESAL) 10 mg tablet Take 2 tablets (20 mg total) by mouth 3 (three) times a day. Active gabapentin (NEURONTIN) 600 mg tablet Take by mouth. Activ e Ajovy Autoinjector 225 mg/1.5 mL auto-injector INJECT 1ML SUBCUTANEOUSLY EVERY 27-30 DAYS 1 each 5 05/22/20 25 Active amphetamine-dextr oamphetamine XR (Adderall XR) 10 mg 24 hr capsule Take 1 capsule (10 mg total) by mouth 1 (one) time each day in the morning. Do not crush or chew. Max Daily Amount: 10 mg 30 capsule 06/29/20 25 025 Active amphetamine-dextr oamphetamine XR (Adderall XR) 10 mg 24 hr capsule Take 1 capsule (10 mg total) by mouth 1 (one) time each day in the morning. Do not crush or chew. Max Daily Amount: 10 mg 30 capsule 07/29/20 25 025 Active amphetamine-dextr oamphetamine XR (Adderall XR) 10 mg 24 hr capsule Take 1 capsule (10 mg total) by mouth 1 (one) time each day in the morning. Do not crush or chew. Max Daily Amount: 10 mg 30 capsule 06/25/20 25 025 Active amphetamine-dextr oamphetamine XR (Adderall XR) 10 mg 24 hr capsule Take 1 capsule (10 mg total) by mouth 1 (one) time each day in the morning. Do not crush or chew. Max Daily Amount: 10 mg 30 capsule 05/30/20 25 025 Disconti nued(Reo rder) Active Problems Problem Noted Date Diagnosed Date MS (multiple sclerosis) 01/31/2025 Encounters Date Type Department Care Team Description 05/29/2025 Telephone [facility] for [place] - [place] [address] [place] [address] Nallely Brito MA 05/26/2025 5:26 PM EDT - 05/26/2025 10:26 PM EDT Emergency [facility] Emergency [address] [place] [address] Alvaro Liu MD Exacerbation of multiple sclerosis (CMS/HCC V24, CMS/HCC V28) (Primary Dx) Discharge Disposition: Home or Self Care 05/01/2025 Telephone [facility] [address] [place] [address] Mary Steele PA 04/27/2025 4:30 PM EDT Office Visit [facility] [address] [place] [address] Mary Steele PA MS (multiple sclerosis) ([facility] V24, [facility] V28) (Primary Dx) from Last 3 Months Immunizations Immunization Administration Dates Next Due Pfizer SARS-CoV-2 COVID-19, mRNA, LNP-S, preservative free 12/19/2020,11/28/2020 Medical History Medical History Date Comments MS (multiple sclerosis) DX:MS (m ultiple sclerosis) ([facility]) Fibromyalgia Migraines Bipolar 2 disorder ([facility] V24, [employer] [employer] V28) Social History Tobacco Use Types Packs/Day Years [...] on file Sexual Orientation Not on file Obstetrics History Last Filed Vital Signs Vital Sign Reading Time Taken Comments Blood Pressure 106/66 05/26/2025 9:52 PM EDT Pulse 79 05/26/2025 9:52 PM EDT Temperature 36.7 C (98.1 F) 05/26/2025 9:52 PM EDT Respiratory Rate 16 05/26/2025 9:52 PM EDT Oxygen Saturation 100% 05/26/2025 9:52 PM EDT Inhaled Oxygen Concentration - - Weight 83.9 kg (185 lb) 05/26/2025 2:39 PM EDT Height 170.2 cm (5' 7 ) 05/26/2025 2:39 PM EDT Body Mass Index 28.98 05/26/2025 2:39 PM EDT Plan of Treatment Upcoming Encounters Date Type Department Care Team (Late st Contact Info) Description 08/07/2025 8:00 AM EST Appointment [facility] for [place] Outpatient Rehabilititation - [place] [address] [place] [phone] 08/07/2025 8:00 AM EST Office Visit [facility] - [place] [address] [facility] [address] [place] [phone] Mary Steele PA [address] [place] [address] Health Maintenance Due Date Last Done Comments Breast Cancer Screening 1974 Colorectal Cancer Screening: Colonoscopy 1974 Hepatitis A Vaccines (1 of 2 - Risk 2-dose series) 1993 Hepatitis B Vaccines (1 of 3 - 19+ 3-dose series) 1993 Cervical Cancer Screening: Pap Smear 1995 Pneumococcal Vaccine: 50+ Years (2 of 2 - PCV) 08/21/2016 08/21/2015 Cholesterol Screening (Lipid Panel) 10/14/2023 HIV Screening 10/14/2023 Hepatitis C Screening 10/14/2023 Medicare Annual Wellness Visit 10/14/2023 Social Influencers of Health Screening 10/14/2023 Depression Screening 09/20/2024 RSV Immunization Adult Patients (1 - Risk 50-74 years 1-dose series) 2024 Zoster Vaccines (2 of 2) 12/20/2024 10/25/2024 COVID-19 Vaccine ( season) 2025 05/13/2022, 07/21/2021, 12/19/2020, Additional history exists Influenza Vaccine (#1) 2025 , 05/13/2022, 06/04/2021, Additional history exists DTaP,Tdap,and Td Vaccines (2 - Td or Tdap) 07/24/2026 07/24/2016 HIB Vaccines Aged Out No longer eligi ble based on patient's age to complete this topic HPV Vaccines Aged Out No longer eligi ble based on patient's age to complete this topic IPV Vaccines Aged Out No longer eligi ble based on patient's age to complete this topic MMR Vaccines Aged Out No longer eligi ble based on patient's age to complete this topic Meningococcal ACWY Vaccine Aged Out N o longer eligible based on patient's age to complete this topic Meningococcal B Vaccine Aged Out No l onger eligible based on patient's age to complete this topic RSV Immunization Patients Under 20 months Aged Out No longer eligible based on patient's age to complete this topic Varicella Vaccines Aged Out No longer eligible based on patient's age to complete this topic Procedures Procedure Name Priority Date/Time Associated Diagnosis Comments ECG ANNOTATED 05/28/2025 URINALYSIS WITH REFLEX MICROSCOPIC STAT 05/26/2025 9:44 PM EDT URINALYSIS WITH REFLEX MICROSCOPIC STAT 05/26/2025 9:44 PM EDT LACTATE, WITH REFLEX STAT 05/26/2025 8:39 PM EDT [id number], RSV, FLU A AND B QUALITATIVE RT-PCR, INTERNAL LAB STAT 05/26/2025 8:37 PM EDT XR CHEST 1 VIEW STAT 05/26/2025 7:27 PM EDT ECG 12-LEAD STAT 05/26/2025 5:54 PM EDT CREATINE KINASE Add-On 05/26/2025 2:54 PM EDT HEPATIC FUNCTION PANEL STAT Add-on 05/26/2025 2:54 PM EDT CBC WITH AUTO DIFFERENTIAL STAT 05/26/2025 2:54 PM EDT MAGNESIUM STAT 05/26/2025 2:54 PM EDT BASIC METABOLIC PANEL STAT 05/26/2025 2:54 PM EDT CBC AND DIFFERENTIAL STAT 05/26/2025 2:54 PM EDT from Last 3 Months Results * ECG-Annotated (05/28/2025) us Provider Onbase MD ECG ORDERABLES Final Result * Urinalysis with reflex microscopic (05/26/2025 9:44 PM EDT) Specific [place] Urine 1.007 1.003 - 1.030 LAB URINALYSIS - AUTOMATED METHOD 05/26/2025 10:13 PM [facility] pH, Urine 6.5 5.0 - 8.0 pH LAB URINALYSIS - AUTOMATED METHOD 05/26/2025 10:13 PM [facility] Leukocytes, Urine Negative Negative LAB URINALYSIS - AUTOMATED METHOD 05/26/2025 10:13 PM [facility] Nitrite, Urine Negative Negative LAB URINALYSIS - AUTOMATED METHOD 05/26/2025 10:13 PM [facility] Protein, Urine Negative <=Trace mg/dL LAB URINALYSIS - AUTOMATED METHOD 05/26/2025 10:13 PM [facility] Glucose, Urine Negative Negative mg/dL LAB URINALYSIS - AUTOMATED METHOD 05/26/2025 10:13 PM [facility] Ketones, Urine Negative Negative mg/dL LAB URINALYSIS - AUTOMATED METHOD 05/26/2025 10:13 PM [facility] Urobilinogen, Urine 0.2 0.2 - 1.0 mg/dL LAB URINALYSIS - AUTOMATED METHOD 05/26/2025 10:13 PM [facility] Bilirubin, Urine Negative Negative LAB URINALYSIS - AUTOMATED METHOD 05/26/2025 10:13 PM [facility] Blood, Urine Negative Negative LAB URINALYSIS - AUTOMATED METHOD 05/26/2025 10:13 PM [facility] Urine Urine specimen obtained by clean catch procedure / Unknown Non-blood Collection / Unknown 05/26/2025 9:44 PM EDT 05/26/2025 10:06 PM EDT Alvaro Liu MD LAB URINE ORDERABLES Final R esult Performing Organization Address City/[facility]/ZIP Co de Phone Number [facility] [address] [place] [address], [place] [phone] * Lactate, with Reflex (05/26/2025 8:39 PM EDT) [facility] LACTIC ACID 0.5 0.4 - 2.0 mmol/L LAB CHEMISTRY METHOD 05/26/2025 9:22 PM EDT [facility] Blood Venous blood specimen / Unknown Venipuncture / Unknown 05/26/2025 8:39 PM EDT 05/26/2025 8:53 PM EDT Alvaro Liu MD LAB BLOOD ORDERABLES Final R esult Performing Organization Address [facility]/ZIP Co de Phone Number [facility] [address] [place] [address], [place] [phone] * [id number], RSV, Influenza A and B qualitative RT-PCR (05/26/2025 8:37 PM EDT) [facility] Influenza A PCR Not Detected Not Detected LAB MICROBIOLOGY METHOD 05/26/2025 9:35 PM EDT [facility] Influenza B PCR Not Detected Not Detected LAB MICROBIOLOGY METHOD 05/26/2025 9:35 PM EDT [facility] RSV PCR Not Detected Not Detected LAB MICROBIOLOGY METHOD 05/26/2025 9:35 PM EDT [facility] SARS COV-2 Not Detected Not Detected LAB MICROBIOLOGY METHOD 05/26/2025 9:35 PM EDT [facility] Swab Both anterior nares / Unknown Non-blood Collection / Unknown 05/26/2025 8:37 PM EDT 05/26/2025 8:53 PM EDT Narrative [facility] - 05/26/2025 9:35 PM EDT Disclaimer: Testing was performed using the [employer] GeneXpert Xpress SARS-CoV-2 _Flu_RSV PLUS PCR assay. The manner in which this information is used to guide patient care is the responsibility of the healthcare provider. Results should be correlated with the clinical history, epidemiological data, and other data available to the clinician evaluating the patient. Negative results do not preclude infection. This test has been authorized by the FDA under an Emergency Use Authorization (EUA). This test is only authorized for the duration of time the declaration that circumstances exist justifying the authorization of the emergency use of in vitro diagnostic tests for detection of SARS-CoV-2 virus and/or diagnosis of COVID-19 infection under section 564 (b) (1) of the Act, 21 U.S.C 360bbb-3 (b) (1), unless the authorization is terminated or revoked sooner. Reference Range: Not Detected Fact sheet for Healthcare providers can be found at https://www.fda.gov/media/992368/download. Fact sheet for Healthcare patients can be found at https://www.fda.gov/media/435483/download. us Alvaro Liu MD LAB MICROBIOLOGY - GENERAL O RDERABLES Final Result [facility] [address] [place] [address], * XR Chest 1 View (05/26/2025 7:27 PM EDT) Anatomical Region Laterality Modality Body Radiographic Nelli ging 05/27/2025 9:03 AM EDT Impressions 05/27/2025 9:04 AM EDT Normal chest radiographs. -------- FINAL REPORT -------- Dictated By: Charles Hall Dictated Date: 05/27/2025 09:03 ET Assigned Physician: Charles Hall Reviewed and Electronically Signed By: Charles Hall Signed Date: 05/27/2025 09:04 ET Workstation ID: [id number] Transcribed By: Self Edit Transcribed Date: 05/27/2025 09:03 ET Narrative 05/27/2025 9:04 AM EDT PROCEDURE: AP chest radiograph. HISTORY: weakness. COMPARISON: None. FINDINGS: The heart, mediastinum, lungs, pleural spaces, and bony thorax are normal. Procedure Note Charles Hall MD - 05/27/2025 PROCEDURE: AP chest radiograph. HISTORY: weakness. COMPARISON: None. FINDINGS: The heart, mediastinum, lungs, pleural spaces, and bony thorax arenormal. IMPRESSION: Normal chest radiographs. -------- FINAL REPORT -------- Dictated By: Charles Hall Dictated Date: 05/27/2025 09:03 ET Assigned Physician: Charles Hall Reviewed and Electronically Signed By: Charles Hall Signed Date: 05/27/2025 09:04 ET Workstation ID: [id number] Transcribed By: Self Edit Transcribed Date: 05/27/2025 09:03 ET Alvaro Liu MD IMG XR PROCEDURES Final Resu lt * ECG 12 lead (05/26/2025 5:54 PM EDT) Ventricular Rate ECG 58 BPM GEMUSE Atrial Rate 58 BPM GEMUSE P-R Interval 160 ms GEMUSE QRS Duration 118 ms GEMUSE Q-T Interval 462 ms GEMUSE QTc 453 ms GEMUSE P Wave [place] 29 degrees GEMUSE R [place] -23 degrees GEMUSE T [place] 36 degrees GEMUSE ECG Interpretation Sinus bradycardia Cannot rule out Inferior infarct , age undetermined Abnormal ECG No previous ECGs available Confirmed by ESTELITA MACEDO ([id number]) on 05/27/2025 7:17:38 AM GEMUSE 05/26/2025 5:54 PM EDT 05/27/2025 7:17 AM EDT Alvaro Liu MD ECG ORDERABLES Final Result GEMUSE * (ABNORMAL) CBC auto differential (05/26/2025 2:54 PM EDT) WBC 19.6(H) 4.8 - 10.8 K/mcL LAB HEMETOLOGY METHOD 05/26/2025 3:32 PM EDT [facility] RBC 4.80 3.80 - 4.80 M/mcL LAB HEMETOLOGY METHOD 05/26/2025 3:[facility] Hemoglobin 13.0 11.5 - 16.0 g/dL LAB HEMETOLOGY METHOD 05/26/2025 3:32 PM EDT [facility] Hematocrit 40.4 35.0 - 47.0 % LAB HEMETOLOGY METHOD 05/26/2025 3:32 [facility] MCV 84.2 79.0 - 98.0 FL LAB HEMETOLOGY METHOD 05/26/2025 3:32 PM [facility] MCH 27.1 27.0 - 32.0 pcg LAB HEMETOLOGY METHOD 05/26/2025 3:32 PM [facility] MCHC 32.2 32.0 - 37.0 g/dL LAB HEMETOLOGY METHOD 05/26/2025 3:32 PM [facility] RDW 15.4(H) 11.0 - 15.0 % LAB HEMETOLOGY METHOD 05/26/2025 3:32 PM [facility] Platelets 176 130 - 400 K/mcL LAB HEMETOLOGY METHOD 05/26/2025 3:32 PM EDT [facility] MPV 9.7 7.0 - 11.0 FL LAB HEMETOLOGY METHOD 05/26/2025 3:32 PM EDT [facility] NRBC 0.0 <1.0 % LAB HEMETOLOGY METHOD 05/26/2025 3:32 PM [facility] NRBC Absolute 0.00 <0.10 K/mcL LAB HEMETOLOGY METHOD 05/26/2025 3:32 PM [facility] Neutrophils Relative 84.9 % LAB HEMETOLOGY METHOD 05/26/2025 3:32 PM [facility] Lymphocytes Relative 7.8 % LAB HEMETOLOGY METHOD 05/26/2025 3:32 PM [facility] Monocytes Relative 6.0 % LAB HEMETOLOGY METHOD 05/26/2025 3:32 PM [facility] Eosinophils Relative 0.6 % LAB HEMETOLOGY METHOD 05/26/2025 3:32 PM [facility] Basophils Relative 0.2 % LAB HEMETOLOGY METHOD 05/26/2025 3:32 PM [facility] Immature Granulocytes Relative 0.5 % LAB HEMETOLOGY METHOD 05/26/2025 3:32 PM [facility] Neutrophils Absolute 16.67(H) 1.50 - 7.00 K/mcL LAB HEMETOLOGY METHOD 05/26/2025 3:32 PM [facility] Lymphocytes Absolute 1.54 1.00 - 5.00 K/mcL LAB HEMETOLOGY METHOD 05/26/2025 3:32 PM [facility] Monocytes Absolute 1.18(H) 0.20 - 1.00 K/mcL LAB HEMETOLOGY METHOD 05/26/2025 3:32 PM [facility] Eosinophils Absolute 0.12 0.00 - 0.50 K/mcL LAB HEMETOLOGY METHOD 05/26/2025 3:32 PM [facility] Basophils Absolute 0.04 0.00 - 0.20 K/mcL LAB HEMETOLOGY METHOD 05/26/2025 3:32 PM [facility] Immature Granulocytes Absolute 0.09(H) 0.00 - 0.03 K/mcL LAB HEMETOLOGY METHOD 05/26/2025 3:32 PM [facility] Blood Venous blood specimen / Unknown Venipuncture / Unknown 05/26/2025 2:54 PM EDT 05/26/2025 3:09 PM EDT us Alvaro Liu MD LAB BLOOD ORDERABLES Final R esult Performing Organization Address [facility]/ZIP Co de Phone Number [facility] [address] [place] [address], [place] [phone] * Magnesium (05/26/2025 2:54 PM EDT) [facility] Magnesium 2.0 1.9 - 2.6 mg/dL LAB CHEMISTRY METHOD 05/26/2025 3:46 PM EDT [facility] Blood Venous blood specimen / Unknown Venipuncture / Unknown 05/26/2025 2:54 PM EDT 05/26/2025 3:09 PM EDT us Alvaro Liu MD LAB BLOOD ORDERABLES Final R esult Performing Organization Address [facility] Co de Phone Number [facility] [address] [place] [address], [place] [phone] * Creatine kinase (05/26/2025 2:54 PM EDT) [facility] Total CK 67 22 - 269 unit/L LAB CHEMISTRY METHOD 05/26/2025 7:50 PM EDT [facility] Blood Venous blood specimen / Unknown Venipuncture / Unknown 05/26/2025 2:54 PM EDT 05/26/2025 3:09 PM EDT us Alvaro Liu MD LAB BLOOD ORDERABLES Final R esult Performing Organization Address City/[facility]/ZIP Co de Phone Number [facility] [address] [place] [address], [place] [phone] * Hepatic Function Panel (05/26/2025 2:54 PM EDT) Pathologist [facility] Total Protein 6.6 6.0 - 8.0 g/dL LAB CHEMISTRY METHOD 05/26/2025 6:56 PM EDT [facility] Albumin 3.8 3.2 - 5.0 g/dL LAB CHEMISTRY METHOD 05/26/2025 6:56 PM EDT [facility] Total Bilirubin 0.4 0.0 - 1.4 mg/dL LAB CHEMISTRY METHOD 05/26/2025 6:56 PM EDT [facility] Bilirubin, Direct 0.1 0.0 - 0.3 mg/dL LAB CHEMISTRY METHOD 05/26/2025 6:56 PM EDT [facility] Bilirubin, Indirect 0.3 0.0 - 1.1 mg/dL LAB CHEMISTRY METHOD 05/26/2025 6:56 PM [facility] ALT (SGPT) 34 10 - 60 unit/L LAB CHEMISTRY METHOD 05/26/2025 6:56 PM EDT [facility] AST (SGOT) 21 10 - 42 unit/L LAB CHEMISTRY METHOD 05/26/2025 6:56 PM EDT [facility] Alkaline Phosphatase 103 42 - 121 unit/L LAB CHEMISTRY METHOD 05/26/2025 6:56 PM [facility] Blood Venous blood specimen / Unknown Venipuncture / Unknown 05/26/2025 2:54 PM EDT 05/26/2025 3:09 PM EDT us Alvaro Liu MD LAB BLOOD ORDERABLES Final R esult [facility] [address] [place] [address], * (ABNORMAL) Basic metabolic panel (05/26/2025 2:54 PM EDT) [facility] Sodium 141 133 - 145 mmol/L LAB CHEMISTRY METHOD 05/26/2025 3:46 PM [facility] Potassium 4.1 3.5 - 5.5 mmol/L LAB CHEMISTRY METHOD 05/26/2025 3:46 PM [facility] Chloride 112(H) 96 - 110 mmol/L LAB CHEMISTRY METHOD 05/26/2025 3:46 PM [facility] CO2 25 21 - 32 mmol/L LAB CHEMISTRY METHOD 05/26/2025 3:46 PM [facility] Anion Gap 4 3 - 11 LAB CHEMISTRY METHOD 05/26/2025 3:46 PM [facility] Glucose 83 70 - 100 mg/dL LAB CHEMISTRY METHOD 05/26/2025 3:46 PM [facility] BUN 13 5 - 25 mg/dL LAB CHEMISTRY METHOD 05/26/2025 3:46 PM [facility] Creatinine 0.98 0.50 - 1.10 mg/dL LAB CHEMISTRY METHOD 05/26/2025 3:46 PM [facility] eGFR 70 >=60 mL/min/1. 73m2 LAB CHEMISTRY METHOD 05/26/2025 3:46 PM [facility] Comment:Calculation based on the Chronic Kidney Disease Epidemiology Collaboration (CKD-EPI) equation refit without adjustment for race. BUN/Creatinine Ratio 13.3 LAB CHEMISTRY METHOD 05/26/2025 3:46 PM [facility] Calcium 9.1 8.5 - 10.5 mg/dL LAB CHEMISTRY METHOD 05/26/2025 3:46 PM [facility] Blood Venous blood specimen / Unknown Venipuncture / Unknown 05/26/2025 2:54 PM EDT 05/26/2025 3:09 PM EDT us Alvaro Liu MD LAB BLOOD ORDERABLES Final R esult [facility] [address] [place] [address], from Last 3 Months Insurance MEDICARE MEDICAID [place] [employer] Care Teams Manager Of Development Relationship Specialty Start Date End Date Adeola Zimmer MD [address] [place] [phone] PCP - General Family Medicine 10/04/24
--- OUTSIDE RECORDS SUMMARY | 2025-07-14 13:36 | XMS_ITS | Patient Health Record ---
Author Organization [facility] Address [address] [place] [id number] Care Team Providers Care [place]a V[place] Mechanic Name Role Phone Pascale Daniel Primary Care Provider UnavailVasyl Colon Unavailable [phone] pascale Daniel Unavailable Unavailable Marni Skinner Unavailable [phone] Allergies Allergen (clinical drug ingredient) Drug/Non Drug Allergy documented on EMR Reaction Allergy Type Onset Date Status lamotrigine Lamotrigine rash Drug Allergy Act reza naproxen Naproxen palpitations Drug Allergy Acti ve temazepam Temazepam chest pain Drug Allergy Active Reason For Referral No Information Medications Medication SIG (Take, Route, Frequency, Duration) Notes Start Date End Date Status Acetaminophen 325 MG 2 tablet as needed Orally every 4 hrs uses 20/week Active Gabapentin 300 MG 1 capsule Oral three times a day; Duration: 30 days for MS, from [facility] [place] [facility] Active Rosuvastatin Calcium 10 MG 1 tablet Orally at bedtime; Duration: 90 days Active Levothyroxine Sodium 88 MCG 1 tablet in the morning on an empty stomach Orally Once a day Dose incr 2 mo ago--August Active Multivitamin/Iron - 1 tab Orally qam Active Dimethyl Fumarate 240 MG 1 capsule Orally Twice a day Not-Taking Glucosamine 500 MG 1 tablet with meals Orally once a day Active Pregabalin 150 MG 1 capsule Orally tid Not-Taking Vitamin B12 500 MCG 1 tablet Orally Once a day Active tiZANidine HCl 4 MG 1 tablet as needed Orally Three times a day Not-Taking Black Cohosh Extract 200 MG as directed Orally qd Active Ajovy 225 MG/1.5ML INJECT 1ML SUBCUTANEOUSLY EVERY 27-30 DAYS; Duration: 90 days Active Fish Oil 300 MG 1 capsule Orally Once a day Active Cetirizine HCl 10 MG 1 tablet Orally Once a day; Duration: 30 days 01/10/2024 Active Prochlorperazine 10 MG 1 tablet as needed Orally prn nausea Active Ocrevus 300 MG/10ML as directed Intravenous every 6 months 01/10/2024 Active oxyBUTYnin Chloride ER 15 MG 1 tablet Orally Once a day in the morning; Duration: 90 days Active Baclofen 10 MG 1 tablet at bedtime Oral and twice daily as needed; Duration: 90 days Active Famotidine 20 MG 1 tablet at bedtime Orally Once a day Active Amitriptyline HCl 10 MG 2 tablet at bedtime Orally Once a day For sleep, prescribed by Mary Grace Ordonez PCP Active clonazePAM 0.25 MG 1 tablet at bedtime Orally Once a day Active Naratriptan HCl 2.5 MG 1 tablet Orally at onset of migraine may repeat after 2hrs. if needed Max 2tabs/24hrs Not-Taking Vitamin D3 10 MCG (400 UNIT) 1 capsule Orally Once a day Active diphenhydrAMINE HCl 25 MG 1 capsule at bedtime as needed Orally Once a day Not-Taking metFORMIN HCl 500 MG 1 tablet with a meal Orally Once a day Active DULoxetine HCl 60 MG 1 capsule Orally Once a day in the morning. Active Topiramate 100 MG 2 tablet Orally Twice a day for migraines, Dr. Barba, general neurology Active Doxycycline Hyclate 100 MG 1 capsule Orally Once a day Active Pantoprazole Sodium 20 MG 1 tablet Orally Once a day Active Vraylar 6 MG 1 capsule Orally Once a day Active Prazosin HCl 2 MG 3 capsule at bedtime Orally Once a day Active [place] Carbonate ER 300 MG 1 tablet Orally Once a day 300 mg qam and 450 mg qhs. dose reduced to 300 bid 11/05/22. Weaning. Not-Taking Social History Tobacco Use: Social History Observation Description Date Details (start date - stop date) Current Smoker NA - NA Household Question Answer Notes Marital status: lives w/ and son. 4 cats. Level of education: finished high school [employer] Tobacco Use/Smoking Question Answer Notes Tobacco use: current smoker How often do you smoke cigarettes? every day How many cigarettes a day do you smoke? 11-20 Additional Findings: Tobacco User Modera te cigarette smoker (10-19 cigs/day) Section Notes: Walks alot for exercise lo 48lb in the last year. Disabled due to multiple sclerosis. Problems Problem Type SNOMED Code ICD Code Onset Dates Problem Status W/U Status Risk Notes Problem Bipolar disorder (52964758) Bipolar disorder, unspecified (F31.9) Active confirmed Problem Anxiety disorder (344544805) Anxiety disorder, unspecified (F41.9) Active confirmed Problem Posttraumatic stress disorder (42627880) Post-traumatic stress disorder, chronic (F43.12) Active confirmed Problem Multiple sclerosis (12434349) Multiple sclerosis (G35) Active confirmed Problem Chronic migraine without aura, non-refractory (disorder) (503276671027917) Migraine without aura, not intractable, without status migrainosus (G43.009) Active confirmed Problem Chronic migraine without aura, non-intractable (785530268346383) Chronic migraine without aura, not intractable, without status migrainosus (G43.709) Active confirmed Problem Chronic intractable migraine without aura (735159812541317) Chronic migraine without aura, intractable, with status migrainosus (G43.711) Active confirmed Vital Signs Weight-kg 96.62 kg 08/16/2024 Height 67 in 08/16/2024 Weight 213 lbs 08/16/2024 BMI 33.36 kg/m2 08/16/2024 Encounters Encounter Location Date [facility] [address] [place] [address] 08/16/2024 Marni Skinner Migraine without aur a, not intractable, without status migrainosus G43.009 and Multiple sclerosis G35 Assessments Encounter Date Diagnosis (ICD Code) Assessment Notes Treatment Notes Treatment Clinical Notes Section Notes 08/16/2024 Multiple sclerosis (ICD-10 - G35) Continue management with MS center, last MRI brain done 2022, reviewed impression. Patient presents for evaluation and management. Pt was seen and evaluated by Marni GARCIA. Pt consents to virtual visit. 08/16/2024 Migraine without aura, not intractable, without status migrainosus (ICD-10 - G43.009) Pt with excellent continued migraine control with Ajovy Continue to f/u with pulmonology regarding new YAHAIRA diagnosis and plan to start CPAP. Will monitor morning mild-moderate headaches that occur a few times per week, no red flag symptoms, no neurological deficits associated with headaches. Headaches may improve with use of CPAP machine which her central processing technician suspects are related. Continue current medications as prescribed. Follow up in 6 months or sooner as needed. Patient agrees with plan. All questions and concerns addressed. Patient instructed to maintain headache log. Patient advised to contact office for any change in headache pattern, increase in headache frequency, duration, or severity. Medication reconciliation completed. Previous office visit note reviewed. Patient presents for evaluation and management. Pt was seen and evaluated by Marni GARCIA. Pt consents to virtual visit. Plan Of Treatment No Information Insurance Providers Payer Name Payer Address Payer Phone Subscriber Number Group Number Insured Name Patient Relationship to Insured Coverage Start Date Coverage End Date MEDICARE B [address] [place], [place] [id number] Lindsay Saavedra Self - patient is the insured [place] [employer] [address] [place] [address] [id number] Lindsay Saavedra Self - patient is the insured Medical (General) History Medical History History ICD Code multiple sclerosis Dx 2016, flares 3x/ye ar, responsive to po dexamethasone bipolar disorder II Fibromuscular dysplasia PTSD GERD PUD 2010 hidradenitis suppurativa (methadone, dox ycycline) depression mild, no SI (SA x 3 in past) RADHA/PAD panic attacks 1/month x30-60 min . Surgical History Surgery Date(Month/Year) laparoscopic JOSHUA 1995 Appendectomy 01/2023 RFA 03/11/23 RFA 12/16/23 Intracept procedure for lower back, in [place] for this 05/13 Hospitalization History Reason Date(Month/Year) cellulitis left arm Abdi 1 night 201 6 Psych admissions x 5, up to 3 weeks [facility]. No ECT.
[2025-07-14 15:15] VITALS: BP 113/65; PULSE 96; RESP 16; TEMP 36.3; O2SAT 98
== END 2025-07-14 15:16 | disposition home or self-care (01) ==
PROVIDERS: Emergency Provider Emergency Medicine Emergency Medical Services; PCP Nurse Practitioner Family
DX: S16.1XXA Strain of muscle, fascia and tendon at neck level, initial encounter (principal); V43.52XA Car driver injured in collision with other type car in traffic accident, initial encounter; Y93.9 Activity, unspecified; Y92.89 Other specified places as the place of occurrence of the external cause; Y99.9 Unspecified external cause status; M25.512 Pain in left shoulder; M54.2 Cervicalgia
CPT/HCPCS: 72125; 73030; 99284

== ENCOUNTER → 2025-07-14 12:52 | Outpatient (BNV) | payer OTHER, MEDICARE, MEDICAID, SELFPAY | PROVIDERS: PCP Nurse Practitioner Family; Visit Provider Radiology Diagnostic Radiology | DX: M54.2 Cervicalgia (principal); M25.512 Pain in left shoulder; V89.2XXA Person injured in unspecified motor-vehicle accident, traffic, initial encounter | CPT/HCPCS: 72125; 73030 ==